=== PATIENT | male | born 1965 | race Caucasian/White ===

== ENCOUNTER 2018-09-21 06:08 | Emergency (ER) | payer OTHER ==
[~2018-09-21] VITALS: Ht 170.2 cm; Wt 76.8 kg
[2018-09-21 06:15] VITALS: Ht 170.2 cm; Wt 76.8 kg
[2018-09-21] MEDS ORDERED: ONDANSETRON 4 MG INJ IV STA ×3 (07:36→09:21)
[2018-09-21] MEDS ORDERED: morphine 4 MG/ML VIAL IV STA (07:36)
--- NOTE | 2018-09-21 08:01 | ERD ---
ER Documentation Chief Complaint Chief Complaint abdominal pain/vomiting since 1999 last night HPI This is a 53-year-old male with a history of hypertension, diabetes, end-stage renal disease who goes to dialysis Sunday, Sunday, Sunday who presents to the ER for evaluation of abdominal pain, cramping and vomiting since last night. The patient states that he normally has nausea and vomiting after dialysis however he is vomited multiple times today. He denies any blood in the vomit. He states that he does have some pain which she describes as a cramping pain located in the lower portion of the abdomen. The patient denies any chest pain or shortness of breath this time. ROS All systems reviewed and are negative except as per history of present illness. Medications Home Meds Active Scripts Hydrocodone/Acetaminophen (Raymond 5-325 Tablet) 1 Each Tablet, 1 TAB PO Q6H PRN for PAIN, #7 TAB Prov:HELEN KOWALSKI DO 09/21/18 Ondansetron (Ondansetron Odt) 4 Mg Tab.rapdis, 4 MG PO Q6H PRN for NAUSEA AND/OR VOMITING, #10 TAB Prov:HELEN KOWALSKI DO 09/21/18 Allergies Allergies: Coded Allergies: No Known Drug Allergies (Verified Allergy, Unknown, 09/21/18) PMhx/Soc History of Surgery: No Anesthesia Reaction: No Hx Neurological Disorder: No Hx Respiratory Disorders: No Hx Cardiac Disorders: Yes (HTN, HIGH CHOLESTEROL) Hx Psychiatric Problems: No Hx Miscellaneous Medical Probl: Yes (ESRD ON HD) Hx Alcohol Use: No Hx Substance Use: No Hx Tobacco Use: No Smoking Status: Never smoker Physical Exam Vitals Vital Signs Date Temp Pulse Resp B/P (MAP) Pulse Ox O2 O2 Flow FiO2 Time Delivery Rate 09/21/18 98.6 84 18 187/91 99 06:15 (123) Physical Exam INITIAL VITAL SIGNS: Reviewed by me GENERAL: The patient is well developed and appropriate for usual state of health in no apparent distress HEENT: Dry mucous membranes, pupils equal, round, and reactive to light. EOMI. There is no scleral icterus. NECK: C-spine is soft and supple, there is no meningismus. There is no cervical lymphadenopathy. LUNGS: Clear to auscultation bilaterally. There are no rales, wheezes or rhonchi. HEART: Regular rate and rhythm, no murmurs, clicks, rubs or gallops. ABDOMEN: Mild epigastric tenderness to palpation, negative Poole sign, negative McBurney point tenderness, otherwise soft, non-tender, non-distended. There are bowel sounds in all four quadrants. No rebound or guarding. EXTREMITIES: There is no peripheral cyanosis or edema. No focal swelling or erythema. NEUROLOGICAL: The patient moves all four extremities with 5/5 strength. Cranial nerves II - XII are intact. Normal gait. Alert and oriented SKIN: Dialysis catheter in right anterior chest wall, there is no apparent rash or petechiae. HEME/LYMPHATIC: There is no evidence of excessive bruising or lymphedema. PSYCHIATRIC: The patient does not appear anxious or depressed. Result Diagram: 09/21/1872909/21/1830 Results 24 hrs Laboratory Tests Test 09/21/18 07:30 White Blood Count 11.1 10^3/ul Red Blood Count 4.95 10^6/ul Hemoglobin 13.1 g/dl Hematocrit 40.1 % Mean Corpuscular Volume 81.0 fl Mean Corpuscular Hemoglobin 26.5 pg Mean Corpuscular Hemoglobin Concent 32.7 g/dl Red Cell Distribution Width 16.9 % Platelet Count 221 10^3/UL Mean Platelet Volume 8.8 fl Immature Granulocytes % 0.400 % Neutrophils % 86.3 % Lymphocytes % 5.0 % Monocytes % 7.6 % Eosinophils % 0.4 % Basophils % 0.3 % Nucleated Red Blood Cells % 0.0 /100WBC Immature Granulocytes # 0.040 10^3/ul Neutrophils # 9.6 10^3/ul Lymphocytes # 0.6 10^3/ul Monocytes # 0.8 10^3/ul Eosinophils # 0.0 10^3/ul Basophils # 0.0 10^3/ul Nucleated Red Blood Cells # 0.0 10^3/ul Sodium Level 138 mmol/L Potassium Level 4.0 mmol/L Chloride Level 97 mmol/L Carbon Dioxide Level 25 mmol/L Anion Gap 16 Blood Urea Nitrogen 28 mg/dl Creatinine 7.08 mg/dl Est Glomerular Filtrat Rate mL/min 8 mL/min Glucose Level 154 mg/dl Calcium Level 9.6 mg/dl Total Bilirubin 0.5 mg/dl Direct Bilirubin 0.00 mg/dl Indirect Bilirubin 0.5 mg/dl Aspartate Amino Transf (AST/SGOT) 16 IU/L Alanine Aminotransferase (ALT/SGPT) 16 IU/L Alkaline Phosphatase 128 IU/L Total Protein 9.2 g/dl Albumin 4.8 g/dl Globulin 4.40 g/dl Albumin/Globulin Ratio 1.09 Lipase 52 U/L Current Medications Medications Dose Sig/Mikey Start Time Status Last (Trade) Ordered Route PRN Stop Time Admin Dose Reason Admin Morphine 4 mg ONCE STAT 09/21/18 DC 09/21/18 Sulfate IV 07:36 07:40 (morphine) 09/21/18 07:37 Ondansetron 4 mg ONCE STAT 09/21/18 DC 09/21/18 HCl (Zofran IV 07:36 07:40 Inj) 09/21/18 07:37 Procedures/MDM This 53-year-old male presents to the emergency room for evaluation of nausea and vomiting. The patient has had vomiting since last night and on my examination the patient was afebrile, nontoxic-appearing and hemodynamically stable. The patient had no significant tenderness to palpation. Labwork was obtained which shows his chronic renal insufficiency and no leukocytosis and no significant electrolyte abnormality. The patient was given Zofran and morphine. On my reevaluation he is sleeping comfortably and in no acute distress. Repeat abdominal exam is soft, nontender and benign. The patient will be discharged home with a prescription for Raymond for breakthrough pain and Zofran ODT. The patient was advised he can return to the ER at any moment for reevaluation and with him and his family members were at bedside verbalized understanding and are okay with the plan of care. Differential diagnoses entertained was broad with potential high acuity. Patient has been evaluated for appendicitis, chol ecystitis, and other high risk medical and surgical causes of abdominal pain. Ultimately the patient's evaluation is nondiagnostic. Based on the patient's lack of risk factors, as well as the patient's clinical, laboratory, and imaging data, the patient appears to be low risk for these high risk causes of abdominal pain. Departure Diagnosis: Primary Impression: Abdominal pain Additional Impressions: Nausea and vomiting Chronic kidney disease Condition: HELEN Chang DO September 21, 2018 08:01
[2018-09-21] MEDS ORDERED: ONDA4TAB14 PO (08:27)
[2018-09-21] MEDS ORDERED: HYDR-4011 PO (08:27)
[2018-09-21 09:30] VITALS: BP 178/87; PULSE 78; RESP 17
== END 2018-09-21 09:39 | disposition home or self-care (01) ==
LOC: E/R 06:08
DX: R10.9 Unspecified abdominal pain (principal); R11.2 Nausea with vomiting, unspecified; I12.0 Hypertensive chronic kidney disease with stage 5 chronic kidney disease or end stage renal disease; N18.6 End stage renal disease; Z99.2 Dependence on renal dialysis
CPT/HCPCS: 36415; 80053; 83690; 85025; 96374; 96375; 96376; J2270; J2405; Z7502

== ENCOUNTER 2018-09-23 21:29 | Inpatient (IN) | payer OTHER ==
[~2018-09-23] VITALS: Ht 170.2 cm; Wt 77.3 kg
[~2018-09-23 21:29] MED LIST: HYDR-4011 PO; ONDA4TAB14 PO
[2018-09-23] MEDS ORDERED: ONDANSETRON 4 MG INJ IV STA (22:17)
[2018-09-23] MEDS ORDERED: morphine 4 MG/ML VIAL IV STA (22:17)
[2018-09-23] MEDS ORDERED: NACL 0.9% 3 ML SYG IV SCH (23:30)
[2018-09-23] MEDS ORDERED: metroNIDAZOLE 500 MG/NS (PMX) 100 ML IVPB ONE (23:30)
[2018-09-23] MEDS ORDERED: ACETAMINOPHEN 325 MG TAB PO PRN (23:30)
[2018-09-23] MEDS ORDERED: ACETAMINOPHEN 650 MG SUPP PR PRN (23:30)
[2018-09-23] MEDS ORDERED: PIPER-TAZO 3.375 GM IV (PMX) 100 ML IVPB ONE (23:30)
[2018-09-23] MEDS ORDERED: ONDANSETRON 4 MG INJ IV PRN (23:30)
[2018-09-24] VITALS (9 sets, daily range): BP systolic 152–197; BP diastolic 77–93; PULSE 71–86; RESP 18–20; Ht 170.2 cm; Wt 77.3 kg
[2018-09-24] MEDS ORDERED: hydrALAzine 20 MG INJ IV ONE (00:30)
[2018-09-24] MEDS: DEXTROSE 5%-0.45% NACL 1,000 ML IV SCH ×2 (01:24→23:22)
[2018-09-24] MEDS: CIPROFLOXACIN 400 MG in D5W 200 ML IVPB SCH (01:27)
[2018-09-24] MEDS: morphine 2 MG INJ IV PRN ×4 (03:18→22:20)
[2018-09-24] MEDS: PANTOPRAZOLE 40 MG INJ IV SCH (05:49)
[2018-09-24] MEDS: ONDANSETRON 4 MG INJ IV PRN ×3 (07:47→22:20)
[2018-09-24] MEDS: hydrALAzine 20 MG INJ IV PRN ×2 (08:43→14:59)
[2018-09-24] MEDS: metroNIDAZOLE 500 MG/NS (PMX) 100 ML IVPB SCH ×3 (08:49→20:39)
[2018-09-24] MEDS ORDERED: CIPROFLOXACIN 200 MG/D5W IVPB 100 ML IVPB SCH (09:00)
[2018-09-24] MEDS ORDERED: METOCLOPRAMIDE 10 MG INJ IV PRN (11:00)
--- NOTE | 2018-09-24 11:27 | CONS ---
Assessment/Plan Assessment/Plan Hospital Course (Demo Recall) 53 yo male with mild thickening of the descending and sigmoid colon seen on CT scan 1. Abdominal pain 2. Nausea and vomiting 3. Constipation per pt 4. Mild thickening of the descending and sigmoid colon which may represent acute colitis. 5. Anemia,acute 6. Renal disease on HD 7. Htn 8. DM -on glipizide Impression of CT abd 09/24: 1. Mild thickening of the descending and sigmoid colon which may represent acute colitis. 2. Moderate cardiomegaly with trace pericardial effusion. 3. A few nonspecific bilateral lower lobe ground-glass opacities. These may represent atypical infectious/inflammatory etiologies. Follow-up imaging is recommended as clinically warranted. 4. Moderate cardiomegaly with trace pericardial effusion Plan: IVF to hydrate Stool culture, o/p Continue flagyl and cipro Give Zofran ATC Optimize blood sugars Clear liquid diet okay Do not recommend reglan with renal disease Pt examined and plan of care discussed with Dr. Null Consultation Date/Type/Reason Admit Date/Time September 23, 2018 at 23:18 Date/Time of Note DATE: 09/24/18 TIME: 10:57 Hx of Present Illness 52 yo male with DM2 htn and renal disease presents with nausea, vomiting, and abdominal pain x 2 weeks. PT came to ER 3 days ago with same symptoms, was given medications and sent home. S/S not alleviated and he returned. He has not had a bm in 3 days, had small amount last night. States they are soft and brown in color. He is only able to tolerate small amounts of food. Has lost 5 lbs in last two weeks but states he has not been able to eat. Denies fevers or chills. No evidence of GI bleeding per pt. Pt states his blood sugars have been wnl. On glipizide at home. CT scan shows: Impression of CT abd 09/24: 1. Mild thickening of the descending and sigmoid colon which may represent acute colitis. 2. Moderate cardiomegaly with trace pericardial effusion. 3. A few nonspecific bilateral lower lobe ground-glass opacities. These may represent atypical infectious/inflammatory etiologies. Follow-up imaging is recommended as clinically warranted. 4. Moderate cardiomegaly with trace pericardial effusion. Pt denies travel outside of country, denies being around anyone who is sick. states this happens when he has HD. Denies marijuana or alcohol use. WBC wnl. 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 Past Medical History Home Meds Active Scripts Hydrocodone/Acetaminophen (Sebastian 5-325 Tablet) 1 Each Tablet, 1 TAB PO Q6H PRN for PAIN, #7 TAB Prov:ZEENAT KOWALSKIPEDRO LUIS DO 09/21/18 Ondansetron (Ondansetron Odt) 4 Mg Tab.rapdis, 4 MG PO Q6H PRN for NAUSEA AND/OR VOMITING, #10 TAB Prov:MEGHANAZEENATPEDRO LUIS DO 09/21/18 Medications Current Medications Dextrose/Sodium Chloride 1,000 ml @ 40 mls/hr Q24H IV Last administered on 09/24/18 01:24; Admin Dose 40 MLS/HR; Start 09/23/18 at 23:22 IV Flush (NS 3 ml) 3 ml PER PROTOCOL IV ; Start 09/23/18 at 23:30 Acetaminophen (Tylenol Tab) 650 mg Q6H PRN PO .PAIN 1-3 OR TEMP; Start 09/23/18 at 23:30 Acetaminophen (Tylenol Supp) 650 mg Q6H PRN PA .PAIN 1-3 OR TEMP; Start 09/23 at 23:30 Morphine Sulfate (morphine) 2 mg Q4H PRN IV .SEVERE PAIN 7-10 Last administered on 09/24/18 07:43; Admin Dose 2 MG; Start 09/23/18 at 23:30 Pantoprazole (Protonix Iv) 40 mg DAILY@06 IV Last administered on 09/24/18 05:49; Admin Dose 40 MG; Start 09/24/18 at 06:00 Metronidazole 100 ml @ 100 mls/hr TID IVPB Last administered on 09/24/18 08:49; Admin Dose 100 MLS/HR; Start 09/24/18 at 09:00 Ciprofloxacin/ Dextrose 200 ml @ 200 mls/hr Q24H IVPB Last administered on 09/24/18 01:27; Admin Dose 200 MLS/HR; Start 09/23/18 at 23:45 Ondansetron HCl (Zofran Inj) 4 mg Q4H PRN IV NAUSEA/VOMITING Last administered on 09/24/18 07:47; Admin Dose 4 MG; Start 09/24/18 at 06:00 Hydralazine HCl (Apresoline) 10 mg Q6H PRN IV ELEVATED SYSTOLIC BP Last administered on 09/24/18at 08:43; Admin Dose 10 MG; Start 09/24/18 at 08:30 Allergies: Coded Allergies: No Known Drug Allergies (Verified Allergy, Unknown, 09/21/18) Social History Smoking Status: Never smoker Exam/Review of Systems Exam Vitals Vital Signs Date Temp Pulse Resp B/P (MAP) Pulse Ox O2 O2 Flow FiO2 Time Delivery Rate 09/24/18 77 165/83 09:57 (110) 09/24/18 93 Room Air 08:13 09/24/18 98.4 20 07:33 09/24/18 2.0 00:42 Intake and Output 09/23/18 09/23/18 09/24/18 1515:00 23:00 07:00 IntakeIntake Total 520 ml BalanceBalance 520 ml Constitutional: alert, oriented Psych: no complaints Head: normocephalic Eyes: nl sclera, PERRL Respiratory: clear to auscultation Cardiovascular: regular rate and rhythm Gastrointestinal: soft, bowel sounds, tender (TTP in all quadrants) Musculoskeletal: nl gait and stance Neurological: nl mental status, nl speech Results Result Diagram: 09/24/18 0506 09/24/18 0506 Results 24hrs Laboratory Tests Test 09/23/18 22:27 09/24/18 05:06 White Blood Count 7.1 # 8.2 Red Blood Count 4.26 L 3.86 L Hemoglobin 11.2 L 10.3 L Hematocrit 34.1 L 31.5 L Mean Corpuscular Volume 80.0 L 81.6 L Mean Corpuscular Hemoglobin 26.3 L 26.7 L Mean Corpuscular Hemoglobin Concent 32.8 32.7 Red Cell Distribution Width 16.1 H 16.1 H Platelet Count 185 182 Mean Platelet Volume 8.7 9.0 Immature Granulocytes % 0.400 0.500 H Neutrophils % 75.0 82.4 H Lymphocytes % 10.7 L 7.3 L Monocytes % 11.6 H 7.8 Eosinophils % 2.0 1.8 Basophils % 0.3 0.2 Nucleated Red Blood Cells % 0.0 0.0 Immature Granulocytes # 0.030 0.040 H Neutrophils # 5.3 6.8 Lymphocytes # 0.8 0.6 L Monocytes # 0.8 0.6 Eosinophils # 0.1 0.2 Basophils # 0.0 0.0 Nucleated Red Blood Cells # 0.0 0.0 Sodium Level 133 L 133 L Potassium Level 3.7 3.5 Chloride Level 94 L 95 L Carbon Dioxide Level 27 25 Anion Gap 12 13 Blood Urea Nitrogen 23 H 26 H Creatinine 6.10 H 7.14 H Est Glomerular Filtrat Rate mL/min 10 L 8 L Glucose Level 127 112 Lactic Acid Level 0.7 Calcium Level 8.4 8.0 L Total Bilirubin 0.3 0.3 Direct Bilirubin 0.00 0.00 Indirect Bilirubin 0.3 0.3 Aspartate Amino Transf (AST/SGOT) 11 L 11 L Alanine Aminotransferase (ALT/SGPT) 16 12 L Alkaline Phosphatase 92 76 Troponin I < 0.012 Total Protein 7.8 7.2 Albumin 4.0 3.7 Globulin 3.80 H 3.50 H Albumin/Globulin Ratio 1.05 1.05 Lipase 18 L Medications Medication Current Medications Dextrose/Sodium Chloride 1,000 ml @ 40 mls/hr Q24H IV Last administered on 09/24/18at 01:24; Admin Dose 40 MLS/HR; Start 09/23/18 at 23:22 IV Flush (NS 3 ml) 3 ml PER PROTOCOL IV ; Start 09/23/18 at 23:30 Acetaminophen (Tylenol Tab) 650 mg Q6H PRN PO .PAIN 1-3 OR TEMP; Start 09/23/18 at 23:30 Acetaminophen (Tylenol Supp) 650 mg Q6H PRN PA .PAIN 1-3 OR TEMP; Start 09/23/18 at 23:30 Morphine Sulfate (morphine) 2 mg Q4H PRN IV .SEVERE PAIN 7-10 Last administered on 09/24/18at 07:43; Admin Dose 2 MG; Start 09/23/18 at 23:30 Pantoprazole (Protonix Iv) 40 mg DAILY@06 IV Last administered on 09/24/18at 05:49; Admin Dose 40 MG; Start 09/24/18 at 06:00 Metronidazole 100 ml @ 100 mls/hr TID IVPB Last administered on 09/24/18at 08:49; Admin Dose 100 MLS/HR; Start 09/24/18 at 09:00 Ciprofloxacin/ Dextrose 200 ml @ 200 mls/hr Q24H IVPB Last administered on 09/24/18at 01:27; Admin Dose 200 MLS/HR; Start 09/23/18 at 23:45 Ondansetron HCl (Zofran Inj) 4 mg Q4H PRN IV NAUSEA/VOMITING Last administered on 09/24/18at 07:47; Admin Dose 4 MG; Start 09/24/18 at 06:00 Hydralazine HCl (Apresoline) 10 mg Q6H PRN IV ELEVATED SYSTOLIC BP Last administered on 09/24/18at 08:43; Admin Dose 10 MG; Start 09/24/18 at 08:30 SHELLEY RAMIREZ September 24, 2018 11:08 LEANNA NULL MD September 24, 2018 11:29
--- NOTE | 2018-09-24 13:24 | QN ---
Documentation Comment pt seen and examined KOBE YANES MD September 24, 2018 13:24
[2018-09-24] MEDS: AMLODIPINE 5 MG TAB PO SCH ×2 (13:55→20:40)
[2018-09-24] MEDS ORDERED: GLUCAGON 1 MG INJ IM PRN (14:00)
[2018-09-24] MEDS ORDERED: GLUCOSE GEL 15 GRAM TUBE PO PRN ×2 (14:00)
[2018-09-24] MEDS ORDERED: GLUCOSE GEL 15 GRAM TUBE BUCCAL PRN (14:00)
[2018-09-24] MEDS ORDERED: DEXTROSE 50% 50 ML SYRINGE IV PRN ×2 (14:00)
[2018-09-24] MEDS ORDERED: CALC667C PO (14:43)
[2018-09-24] MEDS ORDERED: BENA20TA4 PO (14:43)
[2018-09-24] MEDS ORDERED: AMLO5TAB4 PO (14:43)
--- NOTE | 2018-09-24 15:18 | HP ---
DATE OF ADMISSION: 09/23/2018 REASON FOR ADMISSION: Abdominal pain, nausea, vomiting. HISTORY OF PRESENTING ILLNESS: This is a 53-year-old male with a past medical history of hypertensio n, diabetes, end-stage renal disease on hemodialysis Sunday, Sunday, Sunday, started in 03/2018, p resented to the emergency department complaining of lower abdominal pain and associated with nausea, vomiting for the last 2 weeks. According to the patient, he was doing fine until 2 weeks ago and sta rted having nausea and vomiting especially after dialysis. The patient came to the ER 3 days ago wit h the same symptoms, was given medication and sent home, but the symptoms did not get any better, so came to the emergency department. According to the patient, he has been having lower diffuse abdomin al pain intermittently for the last 2 weeks, vomited, had been continuous for the last 2 days. He archuleta s not been able to eat. Denied any hematemesis, any melena, any bright blood per rectum. Denied any diarrhea. Denied any fevers and chills. On arrival to ED, vital signs showed temperature of 98.3, blood pressure of 186/93, pulse 75, respirations 20, saturating 98%. White count of 8.2, hemoglobin 10.3, platelet count 182, sodium 133, potassium 3.5, chloride 95, bicarbonate 25, BUN of 26, creatini ne 7.14. The patient had a chest x-ray that showed no evidence of acute cardiopulmonary disease. Th e patient had a CT of the abdomen and pelvis that showed mild thickening of descending and sigmoid co lons showing acute colitis, moderate cardiomegaly with trace pericardial effusion, few nonspecific bi lateral lower lobe glass opacities, moderate cardiomegaly and trace pericardial effusion. The patien t was started on IV fluids, Zofran, Flagyl and Zosyn and was admitted for further management. PAST MEDICAL HISTORY: 1. Diabetes. 2. Hypertension. 3. Hyperlipidemia. ALLERGIES: NONE. PAST SURGICAL HISTORY: The patient had a right foot great toe amputation. The patient had a right P ermCath placement. MEDICATIONS TAKING AT HOME: 1. Glipizide. 2. Two blood pressure medicines. 3. Calcium. SOCIAL HISTORY: Denies any history of smoking, alcohol or any drug use. Lives with mother. FAMILY HISTORY: Significant for kidney disease in the father who . REVIEW OF SYSTEMS: The patient complained of diffuse abdominal pain associated with episodes of naus ea, vomiting. No diarrhea. Denied any headache, any blurry vision. Denied any chest pain. Sometim es have shortness of breath. Denied any hematemesis, any melena, any bright red blood per rectum. D enied any focal neurological deficits. PHYSICAL EXAMINATION: VITAL SIGNS: Currently, blood pressure 185/82, afebrile, heart rate 71, respirations 20, saturating 99%. GENERAL: The patient is awake, alert, oriented, does not appear to in any acute distress. HEENT: No scleral icterus. No pallor. HEART: Regular rate and rhythm. LUNGS: Clear to auscultation bilaterally. ABDOMEN: Some diffuse slight tenderness present all over. Positive bowel sounds. No peritoneal sig ns. EXTREMITIES: No clubbing, cyanosis or edema. Status post amputation of the right great toe. LABORATORY DATA: BUN of 26, creatinine 7.14. Lipase was LFTs within normal limit. White coun t of 8.2, hemoglobin 10.3, platelet count 182. ASSESSMENT AND PLAN: This is a 53-year-old male who presented with: 1. Abdominal pain, nausea, vomiting, could be secondary to gastritis, gastroesophagitis/gastroparesi s; however CT of the abdomen and pelvis shows colitis. 2. Colitis evident on the CAT scan; however, the patient does not have diarrhea. 3. End-stage renal disease, on hemodialysis. 4. Hyperlipidemia. 5. Diabetes. 6. Hypertension, uncontrolled. 7. Status post amputation of the right great toe. PLAN: At this period of time, the patient is admitted to med/surg. The patient is started on clear liquid diet. We will start the patient on pain control, IV antibiotics. The patient on Zofran, PPI. GI consultation has been requested. Rest of the treatment will depend on the patient's hospitaliza tion course. Dictated By: KOBE DE GUZMAN/KAE Conf#: [id number] DID#: [id number] CC: EDGAR PEÑA MD;*EndCC*
[2018-09-24] MEDS: METOCLOPRAMIDE 10 MG INJ IV PRN (16:55)
[2018-09-24] MEDS: INSULIN ASPART [NOVOLOG] 3 ML PEN SC SCH ×2 (17:58→21:00)
[2018-09-25] VITALS (19 sets, daily range): BP systolic 152–187; BP diastolic 77–95; PULSE 70–79; RESP 16–18
[2018-09-25] MEDS: CIPROFLOXACIN 400 MG in D5W 200 ML IVPB SCH ×2 (01:12→23:38)
[2018-09-25] MEDS: ACCU-CHEK XX SCH (02:00)
[2018-09-25] MEDS: PANTOPRAZOLE 40 MG INJ IV SCH (05:23)
[2018-09-25] MEDS: ONDANSETRON 4 MG INJ IV PRN ×2 (06:22→12:15)
[2018-09-25] MEDS: DEXTROSE 5%-0.45% NACL 1,000 ML IV SCH (06:26)
[2018-09-25] MEDS: INSULIN ASPART [NOVOLOG] 3 ML PEN SC SCH ×4 (08:00→20:30)
[2018-09-25] MEDS: AMLODIPINE 5 MG TAB PO SCH ×2 (08:16→20:27)
[2018-09-25] MEDS: metroNIDAZOLE 500 MG/NS (PMX) 100 ML IVPB SCH ×3 (08:16→20:26)
--- NOTE | 2018-09-25 11:45 | PN ---
Date/Time of Note Date/Time of Note DATE: 09/25/18 TIME: 11:45 Assessment/Plan VTE Prophylaxis Risk score (from Ns)>0 risk: 3 SCD applied (from Ns): Yes Pharmacological prophylaxis: NA/contraindicated Pharm contraindication: low risk/ambulating Lines/Catheters IV C[facility]ter Type (from [facility]): Peripheral IV Assessment/Plan Hospital Course 53-year-old male who presented with: 1. Abdominal pain, nausea, vomiting, could be secondary to gastritis, gastroesophagitis/gastroparesis; however CT of the abdomen and pelvis shows colitis. Diarrhoea resolved, vommiting still persistent 2. Colitis evident on the CAT scan; however, the patient does not have diarrhea. 3. End-stage renal disease, on hemodialysis. 4. Hyperlipidemia. 5. Diabetes. 6. Hypertension, uncontrolled. 7. Status post amputation of the right great toe. Plan - CLD - IV Zofran/reglan - GI consult ? EGD - hd today - cw amlodipine, restart lisnopril - cw cipro/flagyl Result Diagram: 09/25/18 0514 09/25/18 0514 Results 24hrs Laboratory Tests Test 09/24/18 17:58 09/24/18 20:36 09/25/18 05:14 09/25/18 08:15 Bedside Glucose 112 155 121 White Blood Count 7.8 Red Blood Count 3.77 L Hemoglobin 10.0 L Hematocrit 31.0 L Mean Corpuscular 82.2 Volume Mean Corpuscular 26.5 L Hemoglobin Mean Corpuscular 32.3 Hemoglobin Concent Red Cell 16.4 H Distribution Width Platelet Count 190 Mean Platelet Volume 9.0 Immature 0.400 Granulocytes % Neutrophils % 63.3 Lymphocytes % 17.0 Monocytes % 15.8 H Eosinophils % 2.9 Basophils % 0.6 Nucleated Red Blood 0.0 Cells % Immature 0.030 Granulocytes # Neutrophils # 5.0 Lymphocytes # 1.3 Monocytes # 1.2 H Eosinophils # 0.2 Basophils # 0.1 Nucleated Red Blood 0.0 Cells # Sodium Level 134 L Potassium Level 3.7 Chloride Level 96 L Carbon Dioxide Level 23 Anion Gap 15 H Blood Urea Nitrogen 32 H Creatinine 9.41 #H Est Glomerular 6 L Filtrat Rate mL/min Glucose Level 106 Calcium Level 7.9 L Phosphorus Level 6.9 H Magnesium Level 2.2 Total Bilirubin 0.2 Direct Bilirubin 0.00 Indirect Bilirubin 0.2 Aspartate Amino < 8 L Transf (AST/SGOT) Alanine 17 Aminotransferase (AL T/SGPT) Alkaline Phosphatase 62 Total Protein 6.9 Albumin 3.6 Globulin 3.30 H Albumin/Globulin 1.09 Ratio Subjective 24 Hr Interval Summary Free Text/Dictation Diarrhea is resolved Some abdominal pain Had episode of vomiting this a.m. Exam/Review of Systems Exam Vitals Vital Signs Date Temp Pulse Resp B/P (MAP) Pulse Ox O2 O2 Flow FiO2 Time Delivery Rate 09/25/18 98.3 77 18 168/92 95 07:43 (117) 09/24/18 Room Air 08:13 09/24/18 2.0 00:42 Intake and Output 09/24/18 09/24/18 09/25/18 1515:00 23:00 07:00 IntakeIntake Total 320 ml 820 ml 560 ml OutputOutput Total 175 ml 75 ml BalanceBalance 145 ml 745 ml 560 ml Exam GENERAL: The patient is awake, alert, oriented, does not appear to in any acute distress. HEENT: No scleral icterus. No pallor. HEART: Regular rate and rhythm. LUNGS: Clear to auscultation bilaterally. ABDOMEN: Some diffuse slight tenderness present all over. Positive bowel sounds. No peritoneal signs. EXTREMITIES: No clubbing, cyanosis or edema. Status post amputation of the right great toe. Results Results 24hrs Laboratory Tests Test 09/24/18 17:58 09/24/18 20:36 09/25/18 05:14 09/25/18 08:15 Bedside Glucose 112 155 121 White Blood Count 7.8 Red Blood Count 3.77 L Hemoglobin 10.0 L Hematocrit 31.0 L Mean Corpuscular 82.2 Volume Mean Corpuscular 26.5 L Hemoglobin Mean Corpuscular 32.3 Hemoglobin Concent Red Cell 16.4 H Distribution Width Platelet Count 190 Mean Platelet Volume 9.0 Immature 0.400 Granulocytes % Neutrophils % 63.3 Lymphocytes % 17.0 Monocytes % 15.8 H Eosinophils % 2.9 Basophils % 0.6 Nucleated Red Blood 0.0 Cells % Immature 0.030 Granulocytes # Neutrophils # 5.0 Lymphocytes # 1.3 Monocytes # 1.2 H Eosinophils # 0.2 Basophils # 0.1 Nucleated Red Blood 0.0 Cells # Sodium Level 134 L Potassium Level 3.7 Chloride Level 96 L Carbon Dioxide Level 23 Anion Gap 15 H Blood Urea Nitrogen 32 H Creatinine 9.41 #H Est Glomerular 6 L Filtrat Rate mL/min Glucose Level 106 Calcium Level 7.9 L Phosphorus Level 6.9 H Magnesium Level 2.2 Total Bilirubin 0.2 Direct Bilirubin 0.00 Indirect Bilirubin 0.2 Aspartate Amino < 8 L Transf (AST/SGOT) Alanine 17 Aminotransferase (AL T/SGPT) Alkaline Phosphatase 62 Total Protein 6.9 Albumin 3.6 Globulin 3.30 H Albumin/Globulin 1.09 Ratio Medications Medication Current Medications Dextrose/Sodium Chloride 1,000 ml @ 40 mls/hr Q24H IV Last administered on 09/25/18at 06:26; Admin Dose 40 MLS/HR; Start 09/23/18 at 23:22 IV Flush (NS 3 ml) 3 ml PER PROTOCOL IV ; Start 09/23/18 at 23:30 Acetaminophen (Tylenol Tab) 650 mg Q6H PRN PO .PAIN 1-3 OR TEMP; Start 09/23/18 at 23:30 Acetaminophen (Tylenol Supp) 650 mg Q6H PRN [place] .PAIN 1-3 OR TEMP; Start 09/23/18 at 23:30 Morphine Sulfate (morphine) 2 mg Q4H PRN IV .SEVERE PAIN 7-10 Last administered on 09/24/18at 22:20; Admin Dose 2 MG; Start 09/23/18 at 23:30 Pantoprazole (Protonix Iv) 40 mg DAILY@06 IV Last administered on 09/25/18at 05:23; Admin Dose 40 MG; Start 09/24/18 at 06:00 Metronidazole 100 ml @ 100 mls/hr TID IVPB Last administered on 09/25/18at 08:16; Admin Dose 100 MLS/HR; Start 09/24/18 at 09:00 Ciprofloxacin/ Dextrose 200 ml @ 200 mls/hr Q24H IVPB Last administered on 09/25/18at 01:12; Admin Dose 200 MLS/HR; Start 09/23/18 at 23:45 Ondansetron HCl (Zofran Inj) 4 mg Q4H PRN IV NAUSEA/VOMITING Last administered on 09/25/18at 06:22; Admin Dose 4 MG; Start 09/24/18 at 06:00 Hydralazine HCl (Apresoline) 10 mg Q6H PRN IV ELEVATED SYSTOLIC BP Last administered on 09/24/18at 14:59; Admin Dose 10 MG; Start 09/24/18 at 08:30 Metoclopramide HCl (Reglan) 5 mg Q8 PRN IV NAUSEA AND/OR VOMITING Last administered on 09/24/18at 16:55; Admin Dose 5 MG; Start 09/24/18 at 13:30 Amlodipine Besylate (Norvasc) 5 mg BID PO Last administered on 09/25/18at 08:16; Admin Dose 5 MG; Start 09/24/18 at 13:30 Diagnostic Test (Pha) (Accu-Chek) 1 ea 02 XX ; Start 09/25/18 at 02:00 Insulin Aspart (Novolog Insulin Pen) NOVOLOG *MILD* ALGORITHM WITH MEALS BEDTIME SC ; Start 09/24/18 at 18:00 Heparin Sodium (Porcine) (Heparin (1000 Units/ml)) 4,000 unit AFTER DIALYSIS CATHETER ; Start 09/24/18 at 14:00 Miscellaneous Information 1 ea NOTE XX ; Start 09/24/18 at 14:00 Glucose (Glutose) 15 gm Q15M PRN PO DECREASED GLUCOSE; Start 09/24/18 at 14:00 Glucose (Glutose) 22.5 gm Q15M PRN PO DECREASED GLUCOSE; Start 09/24/18 at 14:00 Dextrose (D50w Syringe) 25 ml Q15M PRN IV DECREASED GLUCOSE; Start 09/24/18 at 14:00 Dextrose (D50w Syringe) 50 ml Q15M PRN IV DECREASED GLUCOSE; Start 09/24/18 at 14:00 Glucagon (Glucagen) 1 mg Q15M PRN IM DECREASED GLUCOSE; Start 09/24/18 at 14:00 Glucose (Glutose) 15 gm Q15M PRN BUCCAL DECREASED GLUCOSE; Start 09/24/18 at 14:00 KOBE YANES MD September 25, 2018 11:45
[2018-09-25] MEDS: METOCLOPRAMIDE 10 MG INJ IV PRN (15:00)
--- NOTE | 2018-09-25 16:43 | CONS ---
Assessment/Plan Assessment/Plan Assessment/Plan (Daily) 1. Abdominal pain 2. Nausea and vomiting 3. Constipation per pt 4. Mild thickening of the descending and sigmoid colon which may represent acute colitis. 5. Anemia,acute 6. Renal disease on HD 7. Htn 8. DM Plan Continue present care We will proceed with EGD to find out the cause of his intractable nausea vomiting Consultation Date/Type/Reason Admit Date/Time September 23, 2018 at 23:18 Initial Consult Date Date/Time of Note DATE: 09/25/18 TIME: 16:42 24 HR Interval Summary Free Text/Dictation Continues to have intractable nausea vomiting. Patient is not responding to anti-emetic treatment Exam/Review of Systems Exam Vitals Vital Signs Date Temp Pulse Resp B/P (MAP) Pulse Ox O2 O2 Flow FiO2 Time Delivery Rate 09/25/18 97.5 72 18 157/77 94 13:04 (103) 09/24/18 Room Air 08:13 09/24/18 2.0 00:42 Intake and Output 09/24/18 09/24/18 09/25/18 1515:00 23:00 07:00 IntakeIntake Total 320 ml 820 ml 560 ml OutputOutput Total 175 ml 75 ml BalanceBalance 145 ml 745 ml 560 ml Constitutional: alert, oriented, well developed Psych: no complaints, nl mood/affect Head: normocephalic, atraumatic Eyes: nl conjunctiva, EOMI, nl lids, nl sclera, PERRL ENMT: nl external ears & nose, nl lips & teeth, nl nasal mucosa & septum Neck: supple, non-tender Respiratory: clear to auscultation, normal air movement Cardiovascular: regular rate and rhythm, nl pulses Gastrointestinal: soft, nl liver, spleen, non-tender Musculoskeletal: nl extremities to inspection, nl gait and stance Extremities: normal pulses Neurological: BATCH ATTENDANT II-XII intact, nl mental status, nl speech, nl strength Skin: nl turgor; No rash or lesions Lymph: nl lymph nodes Results Result Diagram: 09/25/18 0514 09/25/18 0514 Results 24hrs Laboratory Tests Test 09/24/18 17:58 09/24/18 20:36 09/25/18 05:14 09/25/18 08:15 Bedside Glucose 112 155 121 White Blood Count 7.8 Red Blood Count 3.77 L Hemoglobin 10.0 L Hematocrit 31.0 L Mean Corpuscular 82.2 Volume Mean Corpuscular 26.5 L Hemoglobin Mean Corpuscular 32.3 Hemoglobin Concent Red Cell 16.4 H Distribution Width Platelet Count 190 Mean Platelet Volume 9.0 Immature 0.400 Granulocytes % Neutrophils % 63.3 Lymphocytes % 17.0 Monocytes % 15.8 H Eosinophils % 2.9 Basophils % 0.6 Nucleated Red Blood 0.0 Cells % Immature 0.030 Granulocytes # Neutrophils # 5.0 Lymphocytes # 1.3 Monocytes # 1.2 H Eosinophils # 0.2 Basophils # 0.1 Nucleated Red Blood 0.0 Cells # Sodium Level 134 L Potassium Level 3.7 Chloride Level 96 L Carbon Dioxide Level 23 Anion Gap 15 H Blood Urea Nitrogen 32 H Creatinine 9.41 #H Est Glomerular 6 L Filtrat Rate mL/min Glucose Level 106 Calcium Level 7.9 L Phosphorus Level 6.9 H Magnesium Level 2.2 Total Bilirubin 0.2 Direct Bilirubin 0.00 Indirect Bilirubin 0.2 Aspartate Amino < 8 L Transf (AST/SGOT) Alanine 17 Aminotransferase (AL T/SGPT) Alkaline Phosphatase 62 Total Protein 6.9 Albumin 3.6 Globulin 3.30 H Albumin/Globulin 1.09 Ratio Test 09/25/18 13:07 Bedside Glucose 134 Medications Medication Current Medications Dextrose/Sodium Chloride 1,000 ml @ 40 mls/hr Q24H IV Last administered on 09/25/18at 06:26; Admin Dose 40 MLS/HR; Start 09/23/18 at 23:22 IV Flush (NS 3 ml) 3 ml PER PROTOCOL IV ; Start 09/23/18 at 23:30 Acetaminophen (Tylenol Tab) 650 mg Q6H PRN PO .PAIN 1-3 OR TEMP; Start 09/23/18 at 23:30 Acetaminophen (Tylenol Supp) 650 mg Q6H PRN [place] .PAIN 1-3 OR TEMP; Start 09/23/18 at 23:30 Morphine Sulfate (morphine) 2 mg Q4H PRN IV .SEVERE PAIN 7-10 Last administered on 09/24/18at 22:20; Admin Dose 2 MG; Start 09/23/18 at 23:30 Pantoprazole (Protonix Iv) 40 mg DAILY@06 IV Last administered on 09/25/18at 05:23; Admin Dose 40 MG; Start 09/24/18 at 06:00 Metronidazole 100 ml @ 100 mls/hr TID IVPB Last administered on 09/25/18at 13:08; Admin Dose 100 MLS/HR; Start 09/24/18 at 09:00 Ciprofloxacin/ Dextrose 200 ml @ 200 mls/hr Q24H IVPB Last administered on 09/25/18at 01:12; Admin Dose 200 MLS/HR; Start 09/23/18 at 23:45 Ondansetron HCl (Zofran Inj) 4 mg Q4H PRN IV NAUSEA/VOMITING Last administered on 09/25/18at 12:15; Admin Dose 4 MG; Start 09/24/18 at 06:00 Hydralazine HCl (Apresoline) 10 mg Q6H PRN IV ELEVATED SYSTOLIC BP Last a dministered on 09/24/18at 14:59; Admin Dose 10 MG; Start 09/24/18 at 08:30 Metoclopramide HCl (Reglan) 5 mg Q8 PRN IV NAUSEA AND/OR VOMITING Last administered on 09/25/18at 15:00; Admin Dose 5 MG; Start 09/24/18 at 13:30 Amlodipine Besylate (Norvasc) 5 mg BID PO Last administered on 09/25/18at 08:16; Admin Dose 5 MG; Start 09/24/18 at 13:30 Diagnostic Test (Pha) (Accu-Chek) 1 ea 02 XX ; Start 09/25/18 at 02:00 Insulin Aspart (Novolog Insulin Pen) NOVOLOG *MILD* ALGORITHM WITH MEALS BEDTIME SC ; Start 09/24/18 at 18:00 Heparin Sodium (Porcine) (Heparin (1000 Units/ml)) 4,000 unit AFTER DIALYSIS CATHETER ; Start 09/24/18 at 14:00 Miscellaneous Information 1 ea NOTE XX ; Start 09/24/18 at 14:00 Glucose (Glutose) 15 gm Q15M PRN PO DECREASED GLUCOSE; Start 09/24/18 at 14:00 Glucose (Glutose) 22.5 gm Q15M PRN PO DECREASED GLUCOSE; Start 09/24/18 at 14:00 Dextrose (D50w Syringe) 25 ml Q15M PRN IV DECREASED GLUCOSE; Start 09/24/18 at 14:00 Dextrose (D50w Syringe) 50 ml Q15M PRN IV DECREASED GLUCOSE; Start 09/24/18 at 14:00 Glucagon (Glucagen) 1 mg Q15M PRN IM DECREASED GLUCOSE; Start 09/24/18 at 14:00 Glucose (Glutose) 15 gm Q15M PRN BUCCAL DECREASED GLUCOSE; Start 09/24/18 at 14:00 Benazepril HCl (Lotensin) 20 mg DAILY PO ; Start 09/26/18 at 09:00 LEANNA NULL MD September 25, 2018 16:43
[2018-09-25] MEDS: HEPARIN 1000 UNITS/ML 10 ML INJ CATHETER SCH (20:02)
[2018-09-26] VITALS (14 sets, daily range): BP systolic 129–182; BP diastolic 63–89; PULSE 74–82; RESP 13–23
[2018-09-26] MEDS: ACCU-CHEK XX SCH (01:27)
[2018-09-26] MEDS: hydrALAzine 20 MG INJ IV PRN (01:32)
[2018-09-26] MEDS: ONDANSETRON 4 MG INJ IV PRN ×2 (04:46→21:04)
[2018-09-26] MEDS: PANTOPRAZOLE 40 MG INJ IV SCH (06:14)
[2018-09-26] MEDS: INSULIN ASPART [NOVOLOG] 3 ML PEN SC SCH ×4 (08:00→21:00)
[2018-09-26] MEDS: METOCLOPRAMIDE 10 MG INJ IV PRN ×2 (08:24→19:46)
[2018-09-26] MEDS: metroNIDAZOLE 500 MG/NS (PMX) 100 ML IVPB SCH ×2 (08:25→12:25)
[2018-09-26] MEDS: AMLODIPINE 5 MG TAB PO SCH ×2 (08:30→21:04)
[2018-09-26] MEDS ORDERED: BENAZEPRIL 20 MG TAB PO SCH (09:00)
--- NOTE | 2018-09-26 09:37 | PN ---
Date/Time of Note Date/Time of Note DATE: 09/26/18 TIME: 09:36 Assessment/Plan VTE Prophylaxis Risk score (from Ns)>0 risk: 5 SCD applied (from Ns): Yes Pharmacological prophylaxis: NA/contraindicated Pharm contraindication: other Lines/Catheters IV Catheter Type (from [facility]): Peripheral IV Assessment/Plan Hospital Course 1. Abdominal pain, nausea, vomiting, could be secondary to gastritis, gastroesophagitis/gastroparesis; however CT of the abdomen and pelvis shows colitis. Diarrhoea resolved, vommiting still persistent 2. Colitis evident on the CAT scan; however, the patient does not have diarrhea. 3. End-stage renal disease, on hemodialysis. 4. Hyperlipidemia. 5. Diabetes. 6. Hypertension, uncontrolled. 7. Status post amputation of the right great toe. 8. Anemia chronic disease 9. Hyponatremia Assessment/Plan - IV Zofran/reglan - GI consult will proceed EGD today -cw hd -SCD while in bed, anemia - cw amlodipine, lisinopril, increase Benazepril, add Hydralazine TID - cw cipro/flagyl Result Diagram: 09/25/18 0514 09/25/18 0514 Results 24hrs Laboratory Tests Test 09/25/18 13:07 09/25/18 17:59 09/25/18 20:29 09/26/18 07:58 Bedside Glucose 134 114 101 126 Subjective 24 Hr Interval Summary Free Text/Dictation headache, Gastrointestinal: pain, nausea, vomiting Skin: no complaints Exam/Review of Systems Exam Vitals Vital Signs Date Temp Pulse Resp B/P (MAP) Pulse Ox O2 O2 Flow FiO2 Time Delivery Rate 09/26/18 98.0 82 19 182/86 97 08:30 (118) 09/25/18 Room Air 20:00 09/24/18 2.0 00:42 Intake and Output 09/25/18 09/25/18 09/26/18 1515:00 23:00 07:00 IntakeIntake Total 1280 ml 460 ml 520 ml OutputOutput Total 1900 ml BalanceBalance 1280 ml -1440 ml 520 ml Exam right chest Permcath Constitutional: alert, oriented Head: normocephalic Neck: supple Respiratory: diminished breath sounds Cardiovascular: regular rate and rhythm Gastrointestinal: soft, rebound or guarding Results Results 24hrs Laboratory Tests Test 09/25/18 13:07 09/25/18 17:59 09/25/18 20:29 09/26/18 07:58 Bedside Glucose 134 114 101 126 Medications Medication Current Medications Dextrose/Sodium Chloride 1,000 ml @ 40 mls/hr Q24H IV Last administered on 09/25/18 06:26; Admin Dose 40 MLS/HR; Start 09/23/18 at 23:22 IV Flush (NS 3 ml) 3 ml PER PROTOCOL IV ; Start 09/23/18 at 23:30 Acetaminophen (Tylenol Tab) 650 mg Q6H PRN PO .PAIN 1-3 OR TEMP; Start 09/23/18 at 23:30 Acetaminophen (Tylenol Supp) 650 mg Q6H PRN [place] .PAIN 1-3 OR TEMP; Start 09/23/18 at 23:30 Morphine Sulfate (morphine) 2 mg Q4H PRN IV .SEVERE PAIN 7-10 Last administered on 09/24/18 22:20; Admin Dose 2 MG; Start 09/23/18 at 23:30 Pantoprazole (Protonix Iv) 40 mg DAILY@06 IV Last administered on 09/26/18 06:14; Admin Dose 40 MG; Start 09/24/18 at 06:00 Metronidazole 100 ml @ 100 mls/hr TID IVPB Last administered on 09/26/18 08:25; Admin Dose 100 MLS/HR; Start 09/24/18 at 09:00 Ciprofloxacin/ Dextrose 200 ml @ 200 mls/hr Q24H IVPB Last administered on 09/25/18 23:38; Admin Dose 200 MLS/HR; Start 09/23/18 at 23:45 Ondansetron HCl (Zofran Inj) 4 mg Q4H PRN IV NAUSEA/VOMITING Last administered on 09/26/18 04:46; Admin Dose 4 MG; Start 09/24/18 at 06:00 Hydralazine HCl (Apresoline) 10 mg Q6H PRN IV ELEVATED SYSTOLIC BP Last administered on 09/26/18 01:32; Admin Dose 10 MG; Start 09/24/18 at 08:30 Metoclopramide HCl (Reglan) 5 mg Q8 PRN IV NAUSEA AND/OR VOMITING Last administered on 09/26/18 08:24; Admin Dose 5 MG; Start 09/24/18 at 13:30 Amlodipine Besylate (Norvasc) 5 mg BID PO Last administered on 09/26/18at 08:30; Admin Dose 5 MG; Start 09/24/18 at 13:30 Diagnostic Test (Pha) (Accu-Chek) 1 ea 02 XX ; Start 09/25/18 at 02:00 Insulin Aspart (Novolog Insulin Pen) NOVOLOG *MILD* ALGORITHM WITH MEALS BEDTIME SC ; Start 09/24/18 at 18:00 Heparin Sodium (Porcine) (Heparin (1000 Units/ml)) 4,000 unit AFTER DIALYSIS CATHETER Last administered on 09/25/18at 20:02; Admin Dose 4,000 UNIT; Start 09/24/18 at 14:00 Miscellaneous Information 1 ea NOTE XX ; Start 09/24/18 at 14:00 Glucose (Glutose) 15 gm Q15M PRN PO DECREASED GLUCOSE; Start 09/24/18 at 14:00 Glucose (Glutose) 22.5 gm Q15M PRN PO DECREASED GLUCOSE; Start 09/24/18 at 14:00 Dextrose (D50w Syringe) 25 ml Q15M PRN IV DECREASED GLUCOSE; Start 09/24/18 at 14:00 Dextrose (D50w Syringe) 50 ml Q15M PRN IV DECREASED GLUCOSE; Start 09/24/18 at 14:00 Glucagon (Glucagen) 1 mg Q15M PRN IM DECREASED GLUCOSE; Start 09/24/18 at 14:00 Glucose (Glutose) 15 gm Q15M PRN BUCCAL DECREASED GLUCOSE; Start 09/24/18 at 14:00 Benazepril HCl (Lotensin) 20 mg DAILY PO Last administered on 09/26/18at 08:29; Admin Dose 20 MG; Start 09/26/18 at 09:00 DANDY MORRIS September 26, 2018 09:37
--- NOTE | 2018-09-26 11:01 | PREAC ---
Date/Time of Note Date/Time of Note DATE: 09/26/18 TIME: 10:59 Anesthesia Eval and Record Evaluation Time Pre-Procedure Interview DATE: 09/26/18 TIME: 10:59 Age 53 Sex male NPO: 8 hrs Preoperative diagnosis ABDOMINAL PAIN GERD, CONSTIPATION Planned procedure EGD, COLONOSCOPY WITH BIOPSIES Past Medical History Past Medical History: Includes (FIBROMYALGIA) Cardio: HTN, Dyslipidemia Endo: Diabetes GI: Obesity Surgery & Anesthesia Issues No known issue Meds Anticoagulation: No Beta Eloy within 24 hr: No Reason Beta Eloy not given: Pt. not on B-Eloy Active Scripts Hydrocodone/Acetaminophen ([place] 5-325 Tablet) 1 Each Tablet, 1 TAB PO Q6H PRN for PAIN, #7 TAB Prov:HELEN KOWALSKI DO 09/21/18 Ondansetron (Ondansetron Odt) 4 Mg Tab.rapdis, 4 MG PO Q6H PRN for NAUSEA AND/OR VOMITING, #10 TAB Prov:HELEN KOWALSKI DO 09/21/18 Reported Medications Amlodipine Besylate* (Norvasc*) 5 Mg Tablet, 5 MG PO DAILY, TAB 09/24/18 Benazepril Hcl* (Benazepril Hcl*) 20 Mg Tablet, 20 MG PO DAILY, #30 TAB 09/24/18 Calcium Acetate* (Calcium Acetate*) 667 Mg Capsule, 1334 MG PO WITH MEALS, #60 CAP 09/24/18 Current Medications Dextrose/Sodium Chloride 1,000 ml @ 40 mls/hr Q24H IV Last administered on 09/25/18at 06:26; Admin Dose 40 MLS/HR; Start 09/23/18 at 23:22 IV Flush (NS 3 ml) 3 ml PER PROTOCOL IV ; Start 09/23/18 at 23:30 Acetaminophen (Tylenol Tab) 650 mg Q6H PRN PO .PAIN 1-3 OR TEMP; Start 09/23/18 at 23:30 Acetaminophen (Tylenol Supp) 650 mg Q6H PRN [place] .PAIN 1-3 OR TEMP; Start 09/23/18 at 23:30 Morphine Sulfate (morphine) 2 mg Q4H PRN IV .SEVERE PAIN 7-10 Last administered on 09/24/18at 22:20; Admin Dose 2 MG; Start 09/23/18 at 23:30 Pantoprazole (Protonix Iv) 40 mg DAILY@06 IV Last administered on 09/26/18 06:14; Admin Dose 40 MG; Start 09/24/18 at 06:00 Metronidazole 100 ml @ 100 mls/hr TID IVPB Last administered on 09/26/18 08:25; Admin Dose 100 MLS/HR; Start 09/24/18 at 09:00 Ciprofloxacin/ Dextrose 200 ml @ 200 mls/hr Q24H IVPB Last administered on 09/25/18at 23:38; Admin Dose 200 MLS/HR; Start 09/23/18 at 23:45 Ondansetron HCl (Zofran Inj) 4 mg Q4H PRN IV NAUSEA/VOMITING Last administered on 09/26/18 04:46; Admin Dose 4 MG; Start 09/24/18 at 06:00 Hydralazine HCl (Apresoline) 10 mg Q6H PRN IV ELEVATED SYSTOLIC BP Last administered on 09/26/18 01:32; Admin Dose 10 MG; Start 09/24/18 at 08:30 Metoclopramide HCl (Reglan) 5 mg Q8 PRN IV NAUSEA AND/OR VOMITING Last administered on 09/26/18 08:24; Admin Dose 5 MG; Start 09/24/18 at 13:30 Amlodipine Besylate (Norvasc) 5 mg BID PO Last administered on 09/26/18 08:30; Admin Dose 5 MG; Start 09/24/18 at 13:30 Diagnostic Test (Pha) (Accu-Chek) 1 ea 02 XX ; Start 09/25/18 at 02:00 Insulin Aspart (Novolog Insulin Pen) NOVOLOG *MILD* ALGORITHM WITH MEALS BEDTIME SC ; Start 09/24/18 at 18:00 Heparin Sodium (Porcine) (Heparin (1000 Units/ml)) 4,000 unit AFTER DIALYSIS CATHETER Last administered on 09/25/18at 20:02; Admin Dose 4,000 UNIT; Start 09/24/18 at 14:00 Miscellaneous Information 1 ea NOTE XX ; Start 09/24/18 at 14:00 Glucose (Glutose) 15 gm Q15M PRN PO DECREASED GLUCOSE; Start 09/24/18 at 14:00 Glucose (Glutose) 22.5 gm Q15M PRN PO DECREASED GLUCOSE; Start 09/24/18 at 14:00 Dextrose (D50w Syringe) 25 ml Q15M PRN IV DECREASED GLUCOSE; Start 09/24/18 at 14:00 Dextrose (D50w Syringe) 50 ml Q15M PRN IV DECREASED GLUCOSE; Start 09/24/18 at 14:00 Glucagon (Glucagen) 1 mg Q15M PRN IM DECREASED GLUCOSE; Start 09/24/18 at 14:00 Glucose (Glutose) 15 gm Q15M PRN BUCCAL DECREASED GLUCOSE; Start 09/24/18 at 14:00 Benazepril HCl (Lotensin) 40 mg DAILY PO ; Start 09/27/18 at 09:00 Hydralazine HCl (Apresoline) 25 mg TID PO ; Start 09/26/18 at 13:00 Meds reviewed: Yes Allergies Coded Allergies: No Known Drug Allergies (Verified Allergy, Unknown, 09/21/18) Allergies Reviewed: Yes Labs/Studies Labs Reviewed: Reviewed by anesthesiologist Result Diagram: 09/25/18 0514 09/25/18513 test: N/A Pre-procedure Exam Last vitals Vital Signs Date Temp Pulse Resp B/P (MAP) Pulse Ox O2 O2 Flow FiO2 Time Delivery Rate 09/26/18 75 162/80 10:31 (107) 09/26/18 98.0 19 97 08:30 09/25/18 Room Air 20:00 09/24/18 2.0 00:42 Airway: Adequate mouth opening, Adequate thyromental dist Mallampati: Mallampati II Teeth: Normal Lung: Normal Heart: Normal ASA Physical Status ASA physical status: 2 Emergency: None Planned Anesthetic General/MAC: MAC Planned Pain Management Parenteral pain med Pre-operative Attestations Prior to commencing anesthesia and surgery, the patient was re-evaluated, there was verification of: *The patient's identity *The results of appropriate recent lab work and preoperative vital signs *The above evaluation not changing prior to induction *Anesthetic plan, risk benefits, alternative and complications discussed with patient/family; questions answered; patient/family understands, accepts and wishes to proceed. Velasquez Falk M.D. September 26, 2018 11:01
--- NOTE | 2018-09-26 11:15 | PREAC ---
Date/Time of Note Date/Time of Note DATE: 09/26/18 TIME: 11:13 Anesthesia Eval and Record Evaluation Time Pre-Procedure Interview DATE: 09/26/18 TIME: 11:13 Age 53 Sex male NPO: 8 hrs Preoperative diagnosis VOMITING Planned procedure EGD WITH BIOPSIES Past Medical History Past Medical History: Includes Cardio: HTN, Dyslipidemia Endo: Diabetes Renal: ESRD on dialysis Heme: Anemia Surgery & Anesthesia Issues No known issue Meds Anticoagulation: No Beta Eloy within 24 hr: No Reason Beta Eloy not given: Pt. not on B-Eloy Active Scripts Hydrocodone/Acetaminophen ([place] 5-325 Tablet) 1 Each Tablet, 1 TAB PO Q6H PRN for PAIN, #7 TAB Prov:HELEN KOWALSKI DO 09/21/18 Ondansetron (Ondansetron Odt) 4 Mg Tab.rapdis, 4 MG PO Q6H PRN for NAUSEA AND/OR VOMITING, #10 TAB Prov:HELEN KOWALSKI DO 09/21/18 Reported Medications Amlodipine Besylate* (Norvasc*) 5 Mg Tablet, 5 MG PO DAILY, TAB 09/24/18 Benazepril Hcl* (Benazepril Hcl*) 20 Mg Tablet, 20 MG PO DAILY, #30 TAB 09/24/18 Calcium Acetate* (Calcium Acetate*) 667 Mg Capsule, 1334 MG PO WITH MEALS, #60 CAP 09/24/18 Current Medications Dextrose/Sodium Chloride 1,000 ml @ 40 mls/hr Q24H IV Last administered on 09/25/18at 06:26; Admin Dose 40 MLS/HR; Start 09/23/18 at 23:22 IV Flush (NS 3 ml) 3 ml PER PROTOCOL IV ; Start 09/23/18 at 23:30 Acetaminophen (Tylenol Tab) 650 mg Q6H PRN PO .PAIN 1-3 OR TEMP; Start 09/23/18 at 23:30 Acetaminophen (Tylenol Supp) 650 mg Q6H PRN [place] .PAIN 1-3 OR TEMP; Start 09/23/18 at 23:30 Morphine Sulfate (morphine) 2 mg Q4H PRN IV .SEVERE PAIN 7-10 Last administered on 09/24/18at 22:20; Admin Dose 2 MG; Start 09/23/18 at 23:30 Pantoprazole (Protonix Iv) 40 mg DAILY@06 IV Last administered on 09/26/18 06:14; Admin Dose 40 MG; Start 09/24/18 at 06:00 Metronidazole 100 ml @ 100 mls/hr TID IVPB Last administered on 09/26/18 08:25; Admin Dose 100 MLS/HR; Start 09/24/18 at 09:00 Ciprofloxacin/ Dextrose 200 ml @ 200 mls/hr Q24H IVPB Last administered on 09/25/18 23:38; Admin Dose 200 MLS/HR; Start 09/23/18 at 23:45 Ondansetron HCl (Zofran Inj) 4 mg Q4H PRN IV NAUSEA/VOMITING Last administered on 09/26/18 04:46; Admin Dose 4 MG; Start 09/24/18 at 06:00 Hydralazine HCl (Apresoline) 10 mg Q6H PRN IV ELEVATED SYSTOLIC BP Last administered on 09/26/18 01:32; Admin Dose 10 MG; Start 09/24/18 at 08:30 Metoclopramide HCl (Reglan) 5 mg Q8 PRN IV NAUSEA AND/OR VOMITING Last administered on 09/26/18 08:24; Admin Dose 5 MG; Start 09/24/18 at 13:30 Amlodipine Besylate (Norvasc) 5 mg BID PO Last administered on 09/26/18 08:30; Admin Dose 5 MG; Start 09/24/18 at 13:30 Diagnostic Test (Pha) (Accu-Chek) 1 ea 02 XX ; Start 09/25/18 at 02:00 Insulin Aspart (Novolog Insulin Pen) NOVOLOG *MILD* ALGORITHM WITH MEALS BEDTIME SC ; Start 09/24/18 at 18:00 Heparin Sodium (Porcine) (Heparin (1000 Units/ml)) 4,000 unit AFTER DIALYSIS CATHETER Last administered on 09/25/18at 20:02; Admin Dose 4,000 UNIT; Start 09/24/18 at 14:00 Miscellaneous Information 1 ea NOTE XX ; Start 09/24/18 at 14:00 Glucose (Glutose) 15 gm Q15M PRN PO DECREASED GLUCOSE; Start 09/24/18 at 14:00 Glucose (Glutose) 22.5 gm Q15M PRN PO DECREASED GLUCOSE; Start 09/24/18 at 14: 00 Dextrose (D50w Syringe) 25 ml Q15M PRN IV DECREASED GLUCOSE; Start 09/24/18 at 14:00 Dextrose (D50w Syringe) 50 ml Q15M PRN IV DECREASED GLUCOSE; Start 09/24/18 at 14:00 Glucagon (Glucagen) 1 mg Q15M PRN IM DECREASED GLUCOSE; Start 09/24/18 at 14:00 Glucose (Glutose) 15 gm Q15M PRN BUCCAL DECREASED GLUCOSE; Start 09/24/18 at 14:00 Benazepril HCl (Lotensin) 40 mg DAILY PO ; Start 09/27/18 at 09:00 Hydralazine HCl (Apresoline) 25 mg TID PO ; Start 09/26/18 at 13:00 Meds reviewed: Yes Allergies Coded Allergies: No Known Drug Allergies (Verified Allergy, Unknown, 09/21/18) Allergies Reviewed: Yes Labs/Studies Labs Reviewed: Reviewed by anesthesiologist Result Diagram: 09/25/1814 09/25/18513 test: N/A Pre-procedure Exam Last vitals Vital Signs Date Temp Pulse Resp B/P (MAP) Pulse Ox O2 O2 Flow FiO2 Time Delivery Rate 09/26/18 75 162/80 10:31 (107) 09/26/18 98.0 19 97 08:30 09/25/18 Room Air 20:00 09/24/18 2.0 00:42 Airway: Adequate mouth opening, Adequate thyromental dist Mallampati: Mallampati II Teeth: Normal Lung: Normal Heart: Normal ASA Physical Status ASA physical status: 4 Emergency: None Planned Anesthetic General/MAC: MAC Planned Pain Management Parenteral pain med Pre-operative Attestations Prior to commencing anesthesia and surgery, the patient was re-evaluated, there was verification of: *The patient's identity *The results of appropriate recent lab work and preoperative vital signs *The above evaluation not changing prior to induction *Anesthetic plan, risk benefits, alternative and complications discussed with patient/family; questions answered; patient/family understands, accepts and wishes to proceed. Velasquez Falk M.D. September 26, 2018 11:15
[2018-09-26] MEDS ORDERED: PROPOFOL 20 ML ONE (11:34)
[2018-09-26] MEDS ORDERED: LIDOCAINE 2% (SDV) 5 ML INJ ONE (11:34)
[2018-09-26] MEDS ORDERED: FENTAnyl 50 MCG/ML VIAL ONE (11:34)
--- NOTE | 2018-09-26 12:04 | CONS ---
Assessment/Plan Assessment/Plan Assessment/Plan (Daily) End-stage renal disease Peripheral vascular disease Lower extremity ulcerations Continue antibiotics Local wound care Arterial duplex lower extremities Need an AV fistula in the future Consultation Date/Type/Reason Admit Date/Time September 23, 2018 at 23:18 Date of Consultation: September 26, 2018 Type of Consult End-stage renal disease and peripheral vascular disease Reason for Consultation End-stage renal disease peripheral vascular disease Date/Time of Note DATE: 09/26/18 TIME: 12:00 Hx of Present Illness 53-year-old male with a history of hypertension diabetes end-stage renal disease currently on dialysis per permacath which is in the right internal jugular vein patient does not have a fistula patient has bilateral lower extremity ulcerations currently being treated with antibiotics and local wound care Is lethargic Respiratory: no complaints Cardiovascular: no complaints Gastrointestinal: no complaints Genitourinary: no complaints Musculoskeletal: no complaints Skin: no complaints Neurologic: no complaints Past Medical History Medical History: colitis, diabetes, high cholesterol, hypertension, renal disease Home Meds Active Scripts Hydrocodone/Acetaminophen ([place] 5-325 Tablet) 1 Each Tablet, 1 TAB PO Q6H PRN for PAIN, #7 TAB Prov:HELEN KOWALSKI DO 09/21/18 Ondansetron (Ondansetron Odt) 4 Mg Tab.rapdis, 4 MG PO Q6H PRN for NAUSEA AND/OR VOMITING, #10 TAB Prov:HELEN KOWALSKI DO 09/21/18 Reported Medications Amlodipine Besylate* (Norvasc*) 5 Mg Tablet, 5 MG PO DAILY, TAB 09/24/18 Benazepril Hcl* (Benazepril Hcl*) 20 Mg Tablet, 20 MG PO DAILY, #30 TAB 09/24/18 Calcium Acetate* (Calcium Acetate*) 667 Mg Capsule, 1334 MG PO WITH MEALS, #60 CAP 09/24/18 Medications Current Medications Dextrose/Sodium Chloride 1,000 ml @ 40 mls/hr Q24H IV Last administered on 09/25/18at 06:26; Admin Dose 40 MLS/HR; Start 09/23/18 at 23:22 IV Flush (NS 3 ml) 3 ml PER PROTOCOL IV ; Start 09/23/18 at 23:30 Acetaminophen (Tylenol Tab) 650 mg Q6H PRN PO .PAIN 1-3 OR TEMP; Start 09/23/18 at 23:30 Acetaminophen (Tylenol Supp) 650 mg Q6H PRN [place] .PAIN 1-3 OR TEMP; Start 09/23/18 at 23:30 Morphine Sulfate (morphine) 2 mg Q4H PRN IV .SEVERE PAIN 7-10 Last administered on 09/24/18 22:20; Admin Dose 2 MG; Start 09/23/18 at 23:30 Pantoprazole (Protonix Iv) 40 mg DAILY@06 IV Last administered on 09/26/18 06:14; Admin Dose 40 MG; Start 09/24/18 at 06:00 Metronidazole 100 ml @ 100 mls/hr TID IVPB Last administered on 09/26/18 08:25; Admin Dose 100 MLS/HR; Start 09/24/18 at 09:00 Ciprofloxacin/ Dextrose 200 ml @ 200 mls/hr Q24H IVPB Last administered on 09/25/18 23:38; Admin Dose 200 MLS/HR; Start 09/23/18 at 23:45 Ondansetron HCl (Zofran Inj) 4 mg Q4H PRN IV NAUSEA/VOMITING Last administered on 09/26/18 04:46; Admin Dose 4 MG; Start 09/24/18 at 06:00 Hydralazine HCl (Apresoline) 10 mg Q6H PRN IV ELEVATED SYSTOLIC BP Last administered on 09/26/18 01:32; Admin Dose 10 MG; Start 09/24/18 at 08:30 Metoclopramide HCl (Reglan) 5 mg Q8 PRN IV NAUSEA AND/OR VOMITING Last administered on 09/26/18 08:24; Admin Dose 5 MG; Start 09/24/18 at 13:30 Amlodipine Besylate (Norvasc) 5 mg BID PO Last administered on 09/26/18 08:30; Admin Dose 5 MG; Start 09/24/18 at 13:30 Diagnostic Test (Pha) (Accu-Chek) 1 ea 02 XX ; Start 09/25/18 at 02:00 Insulin Aspart (Novolog Insulin Pen) NOVOLOG *MILD* ALGORITHM WITH MEALS BEDTIME SC ; Start 09/24/18 at 18:00 Heparin Sodium (Porcine) (Heparin (1000 Units/ml)) 4,000 unit AFTER DIALYSIS CATHETER Last administered on 5/22/19at 20:02; Admin Dose 4,000 UNIT; Start 09/24/18 at 14:00 Miscellaneous Information 1 ea NOTE XX ; Start 09/24/18 at 14:00 Glucose (Glutose) 15 gm Q15M PRN PO DECREASED GLUCOSE; Start 09/24/18 at 14:00 Glucose (Glutose) 22.5 gm Q15M PRN PO DECREASED GLUCOSE; Start 09/24/18 at 14:00 Dextrose (D50w Syringe) 25 ml Q15M PRN IV DECREASED GLUCOSE; Start 09/24/18 at 14:00 Dextrose (D50w Syringe) 50 ml Q15M PRN IV DECREASED GLUCOSE; Start 09/24/18 at 14:00 Glucagon (Glucagen) 1 mg Q15M PRN IM DECREASED GLUCOSE; Start 09/24/18 at 14:00 Glucose (Glutose) 15 gm Q15M PRN BUCCAL DECREASED GLUCOSE; Start 09/24/18 at 14:00 Benazepril HCl (Lotensin) 40 mg DAILY PO ; Start 09/27/18 at 09:00 Hydralazine HCl (Apresoline) 25 mg TID PO ; Start 09/26/18 at 13:00 Allergies: Coded Allergies: No Known Drug Allergies (Verified Allergy, Unknown, 09/21/18) Social History Smoking Status: Never smoker Exam/Review of Systems Exam Vitals Vital Signs Date Temp Pulse Resp B/P (MAP) Pulse Ox O2 O2 Flow FiO2 Time Delivery Rate 09/26/18 74 13 143/74 94 Room Air 11:55 (97) 09/26/18 98.0 11:34 09/24/18 2.0 00:42 Intake and Output 09/25/18 09/25/18 09/26/18 1515:00 23:00 07:00 IntakeIntake Total 1280 ml 460 ml 520 ml OutputOutput Total 1900 ml BalanceBalance 1280 ml -1440 ml 520 ml Head: normocephalic, atraumatic Eyes: nl conjunctiva, EOMI, nl lids, nl sclera, PERRL ENMT: nl external ears & nose, nl lips & teeth, nl nasal mucosa & septum Neck: supple, non-tender Respiratory: clear to auscultation, normal air movement Cardiovascular: regular rate and rhythm, nl pulses Gastrointestinal: soft, nl liver, spleen, non-tender Additional Comments Bilateral feet ulcerations noted there is palpable femoral pulses no popliteal pedal pulses the upper thighs are warm to touch down to the knee they become cool from the knee down to the ankle Results Result Diagram: 09/25/18 0514 09/25/18 0514 Results 24hrs Laboratory Tests Test 09/25/18 13:07 09/25/18 17:59 09/25/18 20:29 09/26/18 07:58 Bedside Glucose 134 114 101 126 Medications Medication Current Medications Dextrose/Sodium Chloride 1,000 ml @ 40 mls/hr Q24H IV Last administered on 09/25/18 06:26; Admin Dose 40 MLS/HR; Start 09/23/18 at 23:22 IV Flush (NS 3 ml) 3 ml PER PROTOCOL IV ; Start 09/23/18 at 23:30 Acetaminophen (Tylenol Tab) 650 mg Q6H PRN PO .PAIN 1-3 OR TEMP; Start 09/23/18 at 23:30 Acetaminophen (Tylenol Supp) 650 mg Q6H PRN [place] .PAIN 1-3 OR TEMP; Start 09/23/18 at 23:30 Morphine Sulfate (morphine) 2 mg Q4H PRN IV .SEVERE PAIN 7-10 Last administered on 09/24/18at 22:20; Admin Dose 2 MG; Start 09/23/18 at 23:30 Pantoprazole (Protonix Iv) 40 mg DAILY@06 IV Last administered on 09/26/18 06:14; Admin Dose 40 MG; Start 09/24/18 at 06:00 Metronidazole 100 ml @ 100 mls/hr TID IVPB Last administered on 09/26/18 08:25; Admin Dose 100 MLS/HR; Start 09/24/18 at 09:00 Ciprofloxacin/ Dextrose 200 ml @ 200 mls/hr Q24H IVPB Last administered on 09/25/18at 23:38; Admin Dose 200 MLS/HR; Start 09/23/18 at 23:45 Ondansetron HCl (Zofran Inj) 4 mg Q4H PRN IV NAUSEA/VOMITING Last administered on 09/26/18 04:46; Admin Dose 4 MG; Start 09/24/18 at 06:00 Hydralazine HCl (Apresoline) 10 mg Q6H PRN IV ELEVATED SYSTOLIC BP Last administered on 5/23/19at 01:32; Admin Dose 10 MG; Start 09/24/18 at 08:30 Metoclopramide HCl (Reglan) 5 mg Q8 PRN IV NAUSEA AND/OR VOMITING Last administered on 09/26/18at 08:24; Admin Dose 5 MG; Start 09/24/18 at 13:30 Amlodipine Besylate (Norvasc) 5 mg BID PO Last administered on 09/26/18at 08:30; Admin Dose 5 MG; Start 09/24/18 at 13:30 Diagnostic Test (Pha) (Accu-Chek) 1 ea 02 XX ; Start 09/25/18 at 02:00 Insulin Aspart (Novolog Insulin Pen) NOVOLOG *MILD* ALGORITHM WITH MEALS BEDTIME SC ; Start 09/24/18 at 18:00 Heparin Sodium (Porcine) (Heparin (1000 Units/ml)) 4,000 unit AFTER DIALYSIS CATHETER Last administered on 09/25/18at 20:02; Admin Dose 4,000 UNIT; Start 09/24/18 at 14:00 Miscellaneous Information 1 ea NOTE XX ; Start 09/24/18 at 14:00 Glucose (Glutose) 15 gm Q15M PRN PO DECREASED GLUCOSE; Start 09/24/18 at 14:00 Glucose (Glutose) 22.5 gm Q15M PRN PO DECREASED GLUCOSE; Start 09/24/18 at 14:00 Dextrose (D50w Syringe) 25 ml Q15M PRN IV DECREASED GLUCOSE; Start 09/24/18 at 14:00 Dextrose (D50w Syringe) 50 ml Q15M PRN IV DECREASED GLUCOSE; Start 09/24/18 at 14:00 Glucagon (Glucagen) 1 mg Q15M PRN IM DECREASED GLUCOSE; Start 09/24/18 at 14:00 Glucose (Glutose) 15 gm Q15M PRN BUCCAL DECREASED GLUCOSE; Start 09/24/18 at 14:00 Benazepril HCl (Lotensin) 40 mg DAILY PO ; Start 09/27/18 at 09:00 Hydralazine HCl (Apresoline) 25 mg TID PO ; Start 09/26/18 at 13:00 CLEMENT PERRY MD September 26, 2018 12:04
--- NOTE | 2018-09-26 12:06 | PAC ---
Date/Time of Note Date/Time of Note DATE: 09/26/18 TIME: 12:06 Post-Anesthesia Notes Post-Anesthesia Note Last documented vital signs Vital Signs Date Temp Pulse Resp B/P (MAP) Pulse Ox O2 O2 Flow FiO2 Time Delivery Rate 09/26/18 75 162/80 10:31 (107) 09/26/18 98.0 19 97 08:30 09/25/18 Room Air 20:00 09/24/18 2.0 00:42 Activity: WNL Respiratory function: WNL Cardiovascular function: WNL Mental status: Baseline Pain reasonably controlled: Yes Hydration appropriate: Yes Nausea/Vomiting absent: Yes Velasquez Falk M.D. September 26, 2018 12:06
[2018-09-26] MEDS: morphine 2 MG INJ IV PRN (19:43)
[2018-09-26] MEDS: DEXTROSE 5%-0.45% NACL 1,000 ML IV SCH (19:46)
[2018-09-26] MEDS ORDERED: BISACODYL 10 MG SUPP PR PRN (21:00)
[2018-09-26] MEDS ORDERED: POLYETHYLENE GLYCOL 17 GM PACKET PO PRN (21:00)
[2018-09-26] MEDS: DOCUSATE SODIUM 100 MG CAP PO PRN (21:04)
[2018-09-26] MEDS: CIPROFLOXACIN 500 MG TAB PO SCH (23:38)
[2018-09-26] MEDS: metroNIDAZOLE 500 MG TAB PO SCH (23:40)
[2018-09-27] VITALS (17 sets, daily range): BP systolic 146–170; BP diastolic 72–95; PULSE 68–82; RESP 17–20
[2018-09-27] MEDS: ACCU-CHEK XX SCH (01:24)
[2018-09-27] MEDS: ONDANSETRON 4 MG INJ IV PRN ×2 (02:25→06:35)
[2018-09-27] MEDS ORDERED: PANTOPRAZOLE (EC) 40 MG TAB PO SCH (06:00)
[2018-09-27] MEDS: morphine 2 MG INJ IV PRN (06:36)
[2018-09-27] MEDS: INSULIN ASPART [NOVOLOG] 3 ML PEN SC SCH ×4 (08:00→21:00)
[2018-09-27] MEDS: metroNIDAZOLE 500 MG TAB PO SCH ×3 (08:20→21:54)
[2018-09-27] MEDS: METOCLOPRAMIDE 10 MG INJ IV PRN (08:21)
[2018-09-27] MEDS: BENAZEPRIL 20 MG TAB PO SCH (08:23)
[2018-09-27] MEDS: AMLODIPINE 5 MG TAB PO SCH ×2 (08:23→21:55)
--- NOTE | 2018-09-27 10:08 | PN ---
Date/Time of Note Date/Time of Note DATE: 09/27/18 TIME: 10:08 Assessment/Plan VTE Prophylaxis Risk score (from Ns)>0 risk: 3 [place] [facility] [place] contraindicated: low risk/ambulating Pharmacological prophylaxis: NA/contraindicated Pharm contraindication: blood coag disorder Lines/Catheters IV [facility] [place] Assessment/Plan Hospital Course 1. Abdominal pain, nausea, vomiting, secondary to gastritis, gastroesophagitis/gastroparesis; however CT of the abdomen and pelvis shows colitis. Diarrhoea resolved, vomiting still persistent. S/p EGD 2. Colitis evident on the CAT scan; however, the patient does not have diarrhea. 3. End-stage renal disease, on hemodialysis. 4. Hyperlipidemia. 5. Diabetes. 6. Hypertension, controlled. 7. Status post amputation of the right great toe. 8. Anemia chronic disease 9. Hyponatremia 10 Vit . D deficeincy 11. Hypocalcemia Assessment/Plan -EGD results seen - IV Zofran/reglan - GI consult appreciated -cw hd -GI prophylaxis PPI and dr kaur added Carafate -SCD while in bed, anemia - cw amlodipine, lisinopril, Benazepril, Hydralazine TID - cw cipro/flagyl -TUMS bID -vit D weekly Result Diagram: 09/27/18 0507 09/27/18 0507 Results 24hrs Laboratory Tests Test 09/26/18 12:21 09/26/18 17:24 09/26/18 21:12 09/27/18 05:05 Bedside Glucose 115 151 151 Vitamin D 21.9 L 1,25-Dihydroxy Test 09/27/18 05:07 09/27/18 08:20 White Blood Count 6.6 Red Blood Count 4.11 L Hemoglobin 10.7 L Hematocrit 33.5 L Mean Corpuscular 81.5 L Volume Mean Corpuscular 26.0 L Hemoglobin Mean Corpuscular 31.9 L Hemoglobin Concent Red Cell 16.3 H Distribution Width Platelet Count 207 Mean Platelet Volume 9.1 Immature 0.800 H Granulocytes % Neutrophils % 73.9 Lymphocytes % 11.5 L Monocytes % 10.9 Eosinophils % 2.6 Basophils % 0.3 Nucleated Red Blood 0.0 Cells % Immature 0.050 H Granulocytes # Neutrophils # 4.9 Lymphocytes # 0.8 Monocytes # 0.7 Eosinophils # 0.2 Basophils # 0.0 Nucleated Red Blood 0.0 Cells # Sodium Level 135 Potassium Level 4.0 Chloride Level 98 Carbon Dioxide Level 24 Anion Gap 13 Blood Urea Nitrogen 27 H Creatinine 9.70 H Est Glomerular 6 L Filtrat Rate mL/min Glucose Level 121 Hemoglobin A1c 5.7 Calcium Level 8.2 L Phosphorus Level 6.2 H Iron Level 31 L Total Iron Binding 195 L Capacity Percent Iron 16 L Saturation Bedside Glucose 115 Subjective 24 Hr Interval Summary Gastrointestinal: decreased appetite, nausea, vomiting Exam/Review of Systems Exam Vitals Vital Signs Date Temp Pulse Resp B/P (MAP) Pulse Ox O2 O2 Flow FiO2 Time Delivery Rate 09/27/18 98.1 78 170/88 97 Room Air 07:45 (115) 09/27/18 18 01:58 09/24/18 2.0 00:42 Intake and Output 09/26/18 09/26/18 09/27/18 1515:00 23:00 07:00 IntakeIntake Total 720 ml 1040 ml 200 ml BalanceBalance 720 ml 1040 ml 200 ml Exam right chest permcath Constitutional: alert, oriented Head: normocephalic Eyes: nl conjunctiva Neck: supple Respiratory: clear to auscultation Gastrointestinal: soft, rebound or guarding Genitourinary - Male: CVA tenderness; No nl penis, No nl scrotum, No discharge, No other Results Results 24hrs Laboratory Tests Test 09/26/18 12:21 09/26/18 17:24 09/26/18 21:12 09/27/18 05:05 Bedside Glucose 115 151 151 Vitamin D 21.9 L 1,25-Dihydroxy Test 09/27/18 05:07 09/27/18 08:20 White Blood Count 6.6 Red Blood Count 4.11 L Hemoglobin 10.7 L Hematocrit 33.5 L Mean Corpuscular 81.5 L Volume Mean Corpuscular 26.0 L Hemoglobin Mean Corpuscular 31.9 L Hemoglobin Concent Red Cell 16.3 H Distribution Width Platelet Count 207 Mean Platelet Volume 9.1 Immature 0.800 H Granulocytes % Neutrophils % 73.9 Lymphocytes % 11.5 L Monocytes % 10.9 Eosinophils % 2.6 Basophils % 0.3 Nucleated Red Blood 0.0 Cells % Immature 0.050 H Granulocytes # Neutrophils # 4.9 Lymphocytes # 0.8 Monocytes # 0.7 Eosinophils # 0.2 Basophils # 0.0 Nucleated Red Blood 0.0 Cells # Sodium Level 135 Potassium Level 4.0 Chloride Level 98 Carbon Dioxide Level 24 Anion Gap 13 Blood Urea Nitrogen 27 H Creatinine 9.70 H Est Glomerular 6 L Filtrat Rate mL/min Glucose Level 121 Hemoglobin A1c 5.7 Calcium Level 8.2 L Phosphorus Level 6.2 H Iron Level 31 L Total Iron Binding 195 L Capacity Percent Iron 16 L Saturation Bedside Glucose 115 Medications Medication Current Medications IV Flush (NS 3 ml) 3 ml PER PROTOCOL IV ; Start 09/23/18 at 23:30 Acetaminophen (Tylenol Tab) 650 mg Q6H PRN PO .PAIN 1-3 OR TEMP; Start 09/23/18 at 23:30 Acetaminophen (Tylenol Supp) 650 mg Q6H PRN [place] .PAIN 1-3 OR TEMP; Start 09/23/18 at 23:30 Morphine Sulfate (morphine) 2 mg Q4H PRN IV .SEVERE PAIN 7-10 Last administered on 09/27/18at 06:36; Admin Dose 2 MG; Start 09/23/18 at 23:30 Ondansetron HCl (Zofran Inj) 4 mg Q4H PRN IV NAUSEA/VOMITING Last administered on 09/27/18at 06:35; Admin Dose 4 MG; Start 09/24/18 at 06:00 Hydralazine HCl (Apresoline) 10 mg Q6H PRN IV ELEVATED SYSTOLIC BP Last administered on 09/26/18at 01:32; Admin Dose 10 MG; Start 09/24/18 at 08:30 Metoclopramide HCl (Reglan) 5 mg Q8 PRN IV NAUSEA AND/OR VOMITING Last administered on 09/27/18at 08:21; Admin Dose 5 MG; Start 09/24/18 at 13:30 Amlodipine Besylate (Norvasc) 5 mg BID PO Last administered on 09/27/18at 08:23; Admin Dose 5 MG; Start 09/24/18 at 13:30 Diagnostic Test (Pha) (Accu-Chek) 1 ea 02 XX ; Start 09/25/18 at 02:00 Insulin Aspart (Novolog Insulin Pen) NOVOLOG *MILD* ALGORITHM WITH MEALS BEDTIME SC ; Start 09/24/18 at 18:00 Heparin Sodium (Porcine) (Heparin (1000 Units/ml)) 4,000 unit AFTER DIALYSIS CATHETER Last administered on 09/25/18at 20:02; Admin Dose 4,000 UNIT; Start 09/24/18 at 14:00 Miscellaneous Information 1 ea NOTE XX ; Start 09/24/18 at 14:00 Glucose (Glutose) 15 gm Q15M PRN PO DECREASED GLUCOSE; Start 09/24/18 at 14:00 Glucose (Glutose) 22.5 gm Q15M PRN PO DECREASED GLUCOSE; Start 09/24/18 at 14:00 Dextrose (D50w Syringe) 25 ml Q15M PRN IV DECREASED GLUCOSE; Start 09/24/18 at 14:00 Dextrose (D50w Syringe) 50 ml Q15M PRN IV DECREASED GLUCOSE; Start 09/24/18 at 14:00 Glucagon (Glucagen) 1 mg Q15M PRN IM DECREASED GLUCOSE; Start 09/24/18 at 14:00 Glucose (Glutose) 15 gm Q15M PRN BUCCAL DECREASED GLUCOSE; Start 09/24/18 at 14:00 Benazepril HCl (Lotensin) 40 mg DAILY PO Last administered on 09/27/18 08:23; Admin Dose 40 MG; Start 09/27/18 at 09:00 Hydralazine HCl (Apresoline) 25 mg TID PO Last administered on 09/27/18 08:23; Admin Dose 25 MG; Start 09/26/18 at 13:00 Pantoprazole (Protonix Tab) 40 mg DAILY@06 PO Last administered on 09/27/18at 06:35; Admin Dose 40 MG; Start 09/27/18 at 06:00 Ciprofloxacin (Cipro) 500 mg Q24H PO Last administered on 09/26/18at 23:38; Admin Dose 500 MG; Start 09/26/18 at 23:00 Metronidazole (Flagyl) 500 mg TID PO Last administered on 09/27/18 08:20; Admin Dose 500 MG; Start 09/26/18 at 21:00 Docusate Sodium (Colace) 100 mg BID PRN PO CONSTIPATION Last administered on 09/26/18 21:04; Admin Dose 100 MG; Start 09/26/18 at 21:00 Polyethylene Glycol (Miralax) 17 gm DAILY PRN PO CONSTIPATION Last administered on 09/26/18 21:04; Admin Dose 17 GM; Start 09/26/18 at 21:00 Bisacodyl (Dulcolax Supp) 10 mg DAILY PRN [place] CONSTIPATION; Start 09/26/18 at 21:00 DANDY MORRIS September 27, 2018 10:08
[2018-09-27] MEDS: CALCIUM CARBONATE 500 MG CHEW TAB PO SCH ×2 (10:35→21:54)
[2018-09-27] MEDS ORDERED: SOD FERRIC GLUC COMPLX 125 MG in SOD CHLORIDE 0.9% 100 ML IVPB SCH (13:00)
--- NOTE | 2018-09-27 14:44 | CONS ---
Assessment/Plan Assessment/Plan Assessment/Plan (Daily) Assessment/Plan Assessment/Plan Assessment/Plan (Daily) 1. Abdominal pain 2. Nausea and vomiting secondary to diabetic gastroparesis 3. Constipation per pt 4. Mild thickening of the descending and sigmoid colon which may represent acute colitis. 5. Anemia,acute 6. Renal disease on HD 7. Htn 8. DM Plan Continue present care Reglan [id number] Macrolide antibiotic as a prokinetic agent Consultation Date/Type/Reason Admit Date/Time September 23, 2018 at 23:18 Initial Consult Date Date/Time of Note DATE: 09/27/18 TIME: 14:43 24 HR Interval Summary Free Text/Dictation Patient complains of nausea and vomiting Exam/Review of Systems Exam Vitals Vital Signs Date Temp Pulse Resp B/P (MAP) Pulse Ox O2 O2 Flow FiO2 Time Delivery Rate 09/27/18 98.0 79 17 153/75 98 Room Air 14:33 (101) 09/24/18 2.0 00:42 Intake and Output 09/26/18 09/26/18 09/27/18 1515:00 23:00 07:00 IntakeIntake Total 720 ml 1040 ml 200 ml BalanceBalance 720 ml 1040 ml 200 ml Constitutional: alert, oriented, well developed Psych: no complaints, nl mood/affect Head: normocephalic, atraumatic Eyes: nl conjunctiva, EOMI, nl lids, nl sclera, PERRL ENMT: nl external ears & nose, nl lips & teeth, nl nasal mucosa & septum Neck: supple, non-tender Respiratory: clear to auscultation, normal air movement Cardiovascular: regular rate and rhythm, nl pulses Gastrointestinal: soft, nl liver, spleen, non-tender Musculoskeletal: nl extremities to inspection, nl gait and stance Extremities: normal pulses Neurological: DESK DIRECTOR II-XII intact, nl mental status, nl speech, nl strength Skin: nl turgor; No rash or lesions Lymph: nl lymph nodes Results Result Diagram: 09/27/18 0507 09/27/18 0507 Results 24hrs Laboratory Tests Test 09/26/18 17:24 09/26/18 21:12 09/27/18 05:05 09/27/18 05:07 Bedside Glucose 151 151 Vitamin D 21.9 L 1,25-Dihydroxy White Blood Count 6.6 Red Blood Count 4.11 L Hemoglobin 10.7 L Hematocrit 33.5 L Mean Corpuscular 81.5 L Volume Mean Corpuscular 26.0 L Hemoglobin Mean Corpuscular 31.9 L Hemoglobin Concent Red Cell 16.3 H Distribution Width Platelet Count 207 Mean Platelet Volume 9.1 Immature 0.800 H Granulocytes % Neutrophils % 73.9 Lymphocytes % 11.5 L Monocytes % 10.9 Eosinophils % 2.6 Basophils % 0.3 Nucleated Red Blood 0.0 Cells % Immature 0.050 H Granulocytes # Neutrophils # 4.9 Lymphocytes # 0.8 Monocytes # 0.7 Eosinophils # 0.2 Basophils # 0.0 Nucleated Red Blood 0.0 Cells # Sodium Level 135 Potassium Level 4.0 Chloride Level 98 Carbon Dioxide Level 24 Anion Gap 13 Blood Urea Nitrogen 27 H Creatinine 9.70 H Est Glomerular 6 L Filtrat Rate mL/min Glucose Level 121 Hemoglobin A1c 5.7 Calcium Level 8.2 L Phosphorus Level 6.2 H Iron Level 31 L Total Iron Binding 195 L Capacity Percent Iron 16 L Saturation Test 09/27/18 08:20 09/27/18 13:02 Bedside Glucose 115 150 Medications Medication Current Medications IV Flush (NS 3 ml) 3 ml PER PROTOCOL IV ; Start 09/23/18 at 23:30 Acetaminophen (Tylenol Tab) 650 mg Q6H PRN PO .PAIN 1-3 OR TEMP; Start 09/23/18 at 23:30 Acetaminophen (Tylenol Supp) 650 mg Q6H PRN NV .PAIN 1-3 OR TEMP; Start 09/23/18 at 23:30 Morphine Sulfate (morphine) 2 mg Q4H PRN IV .SEVERE PAIN 7-10 Last administered on 09/27/18at 06:36; Admin Dose 2 MG; Start 09/23/18 at 23:30 Ondansetron HCl (Zofran Inj) 4 mg Q4H PRN IV NAUSEA/VOMITING Last administered on 09/27/18at 06:35; Admin Dose 4 MG; Start 09/24/18 at 06:00 Hydralazine HCl (Apresoline) 10 mg Q6H PRN IV ELEVATED SYSTOLIC BP Last administered on 09/26/18at 01:32; Admin Dose 10 MG; Start 09/24/18 at 08:30 Metoclopramide HCl (Reglan) 5 mg Q8 PRN IV NAUSEA AND/OR VOMITING Last administered on 09/27/18 08:21; Admin Dose 5 MG; Start 09/24/18 at 13:30 Amlodipine Besylate (Norvasc) 5 mg BID PO Last administered on 09/27/18 08:23; Admin Dose 5 MG; Start 09/24/18 at 13:30 Diagnostic Test (Pha) (Accu-Chek) 1 ea 02 XX ; Start 09/25/18 at 02:00 Insulin Aspart (Novolog Insulin Pen) NOVOLOG *MILD* ALGORITHM WITH MEALS BEDTIME SC ; Start 09/24/18 at 18:00 Heparin Sodium (Porcine) (Heparin (1000 Units/ml)) 4,000 unit AFTER DIALYSIS CATHETER Last administered on 09/25/18at 20:02; Admin Dose 4,000 UNIT; Start 09/24/18 at 14:00 Miscellaneous Information 1 ea NOTE XX ; Start 09/24/18 at 14:00 Glucose (Glutose) 15 gm Q15M PRN PO DECREASED GLUCOSE; Start 09/24/18 at 14:00 Glucose (Glutose) 22.5 gm Q15M PRN PO DECREASED GLUCOSE; Start 09/24/18 at 14:00 Dextrose (D50w Syringe) 25 ml Q15M PRN IV DECREASED GLUCOSE; Start 09/24/18 at 14:00 Dextrose (D50w Syringe) 50 ml Q15M PRN IV DECREASED GLUCOSE; Start 09/24/18 at 14:00 Glucagon (Glucagen) 1 mg Q15M PRN IM DECREASED GLUCOSE; Start 09/24/18 at 14:00 Glucose (Glutose) 15 gm Q15M PRN BUCCAL DECREASED GLUCOSE; Start 09/24/18 at 14:00 Benazepril HCl (Lotensin) 40 mg DAILY PO Last administered on 09/27/18at 08:23; Admin Dose 40 MG; Start 09/27/18 at 09:00 Hydralazine HCl (Apresoline) 25 mg TID PO Last administered on 09/27/18 08:23; Admin Dose 25 MG; Start 09/26/18 at 13:00 Ciprofloxacin (Cipro) 500 mg Q24H PO Last administered on 09/26/18at 23:38; Admin Dose 500 MG; Start 09/26/18 at 23:00 Metronidazole (Flagyl) 500 mg TID PO Last administered on 09/27/18at 13:03; Admin Dose 500 MG; Start 09/26/18 at 21:00 Docusate Sodium (Colace) 100 mg BID PRN PO CONSTIPATION Last administered on 09/26/18at 21:04; Admin Dose 100 MG; Start 09/26/18 at 21:00 Polyethylene Glycol (Miralax) 17 gm DAILY PRN PO CONSTIPATION Last administered on 09/26/18at 21:04; Admin Dose 17 GM; Start 09/26/18 at 21:00 Bisacodyl (Dulcolax Supp) 10 mg DAILY PRN NV CONSTIPATION; Start 09/26/18 at 21:00 Pantoprazole (Protonix Tab) 40 mg BID@0600,1800 PO ; Start 09/27/18 at 18:00 Ferric Sodium Gluconate Complex 125 mg/Sodium Chloride 100 ml @ 100 mls/hr DAILY@1300 IVPB Last administered on 09/27/18at 13:03; Admin Dose 100 MLS/HR; Start 09/27/18 at 13:00; Stop 09/29/18 at 13:59 Ergocalciferol (Drisdol) 50,000 unit Sa@09 PO ; Start 09/28/18 at 09:00 Calcium Carbonate (Tums) 500 mg BID PO Last administered on 09/27/18at 10:35; Admin Dose 500 MG; Start 09/27/18 at 10:30 Metoclopramide HCl (Reglan) 5 mg Q6 IV ; Start 09/27/18 at 18:00 LEANNA NULL MD September 27, 2018 14:44
[2018-09-27] MEDS: DOCUSATE SODIUM 100 MG CAP PO PRN (15:22)
--- NOTE | 2018-09-27 16:20 | PN ---
Date/Time of Note Date/Time of Note DATE: 09/27/18 TIME: 16:17 Assessment/Plan Lines/Catheters IV Catheter Type (from Nrsg): Saline Lock Assessment/Plan Assessment/Plan End-stage renal disease Continue antibiotics Arterial duplex lower extremities Need an AV fistula in the future Subjective 24 Hr Interval Summary Constitutional: improved Pain Control: mild Exam/Review of Systems Vital Signs Vitals Vital Signs Date Temp Pulse Resp B/P (MAP) Pulse Ox O2 O2 Flow FiO2 Time Delivery Rate 09/27/18 98.0 79 17 153/75 98 Room Air 14:33 (101) 09/24/18 2.0 00:42 Intake and Output 09/26/18 09/26/18 09/27/18 1515:00 23:00 07:00 IntakeIntake Total 720 ml 1040 ml 200 ml BalanceBalance 720 ml 1040 ml 200 ml Exam Eyes: nl conjunctiva, EOMI, nl lids, nl sclera ENMT: nl external ears & nose, nl lips & teeth, nl nasal mucosa & septum, mucosa pink and moist Neck: supple, non-tender Respiratory: clear to auscultation, normal air movement Cardiovascular: regular rate and rhythm, nl pulses Gastrointestinal: soft, nl liver, spleen, non-tender Musculoskeletal: nl extremities to inspection, nl gait and stance Results Result Diagram: 09/27/18 0507 09/27/18 0507 CLEMENT PERRY MD September 27, 2018 16:20
[2018-09-27] MEDS: PANTOPRAZOLE (EC) 40 MG TAB PO SCH (17:24)
[2018-09-27] MEDS: METOCLOPRAMIDE 10 MG INJ IV SCH ×2 (17:24→23:32)
[2018-09-27] MEDS: HEPARIN 1000 UNITS/ML 10 ML INJ CATHETER SCH (20:46)
[2018-09-27] MEDS: ERYTHROMYCIN BASE (DR) 250 MG CAP PO SCH (21:54)
[2018-09-27] MEDS: CIPROFLOXACIN 500 MG TAB PO SCH (23:32)
[2018-09-28] MEDS: ACCU-CHEK XX SCH (01:33)
[2018-09-28 01:52] VITALS: BP 163/79; PULSE 87; RESP 18
[2018-09-28 02:25] VITALS: BP 155/85; PULSE 74; RESP 18
[2018-09-28] MEDS: ERYTHROMYCIN BASE (DR) 250 MG CAP PO SCH (05:59)
[2018-09-28] MEDS: PANTOPRAZOLE (EC) 40 MG TAB PO SCH (05:59)
[2018-09-28] MEDS: METOCLOPRAMIDE 10 MG INJ IV SCH (05:59)
[2018-09-28] MEDS: INSULIN ASPART [NOVOLOG] 3 ML PEN SC SCH (08:00)
[2018-09-28 08:41] VITALS: BP 164/86; PULSE 80; RESP 20
[2018-09-28] MEDS ORDERED: ERGOCALCIFEROL 50,000 UNIT CAP PO SCH (09:00)
--- NOTE | 2018-09-28 09:45 | DS ---
Date/Time of Note Date/Time of Note DATE: 09/28/18 TIME: 09:44 Discharge Summary Admission/Discharge Info Admit Date/Time September 23, 2018 at 23:18 Discharge Date/Time Discharge Diagnosis biliary gastritis Patient Condition: Stable Consults Dr Francois, GI, Dr Don, vascualar surgeon Procedures EGD Hospital Course This is a 53-year-old male with a past medical history of hypertension, diabetes, end-stage renal disease on hemodialysis Sunday, Sunday, Sunday, started in 03/2018, presented to the emergency department complaining of lower abdominal pain and associated with nausea, vomiting for the last 2 weeks. According to the patient, he was doing fine until 2 weeks ago and started having nausea and vomiting especially after dialysis. The patient came to the ER 3 days ago with the same symptoms, was given medication and sent home, but the symptoms did not get any better, so came to the emergency department. According to the patient, he has been having lower diffuse abdominal pain intermittently for the last 2 weeks, vomited, had been continuous for the last 2 days. He has not been able to eat. Denied any hematemesis, any melena, any bright blood per rectum. Denied any diarrhea. Denied any fevers and chills. On arrival to ED, vital signs showed temperature of 98.3, blood pressure of 186/93, pulse 75, respirations 20, saturating 98%. White count of 8.2, hemoglobin 10.3, platelet count 182, sodium 133, potassium 3.5, chloride 95, bicarbonate 25, BUN of 26, creatinine 7.14. The patient had a chest x-ray that showed no evidence of acute cardiopulmonary disease. The patient had a CT of the abdomen and pelvis that showed mild thickening of descending and sigmoid colons showing acute colitis, moderate cardiomegaly with trace pericardial effusion, few nonspecific bilateral lower lobe glass opacities, moderate cardiomegaly and trace pericardial effusion. The patient was started on IV fluids, Zofran, Flagyl and Zosyn and was admitted for further management. PAST MEDICAL HISTORY: 1. Diabetes. 2. Hypertension. 3. Hyperlipidemia. ALLERGIES: NONE. PAST SURGICAL HISTORY: The patient had a right foot great toe amputation. The patient had a right PermCath placement. MEDICATIONS TAKING AT HOME: 1. Glipizide. 2. Two blood pressure medicines. 3. Calcium. SOCIAL HISTORY: Denies any history of smoking, alcohol or any drug use. Lives with mother. FAMILY HISTORY: Significant for kidney disease in the father who . 1. Abdominal pain, nausea, vomiting, secondary to gastritis, gastroesophagitis/gastroparesis; however CT of the abdomen and pelvis shows colitis. Diarrhoea resolved, vomiting still persistent. S/p EGD 2. Colitis evident on the CAT scan; however, the patient does not have diarrhea. 3. End-stage renal disease, on hemodialysis. 4. Hyperlipidemia. 5. Diabetes. 6. Hypertension, controlled. 7. Status post amputation of the right great toe. 8. Anemia chronic disease 9. Hyponatremia 10 Vit . D deficiency. 11. Hypocalcemia During hospitalization pt was in medsurg service. Dr Francois performed EGD that showed gastritis with gastroparesis. Results were d/ssed with pt. He was given IV Zofran/reglan. we continued pt with hd. GI prophylaxis is with PPI and dr Francois added Carafate after EGD. Hypertensive control was achieved with amlodipine, lisinopril, Benazepril, Hydralazine TID. We gave pt cipro/flagyl and TUMS BID. Vit D was ordered weekly. Pt was instructed to follow bland diet. BS was under reasonable control.. Dr Don evaluated pt on AV fistula. Pt was given card to f/up with him outpatient Home Meds Active Scripts Ergocalciferol (Vitamin D2) (VITAMIN D2) 50,000 Unit Capsule, 74729 UNIT PO Sa@09 for 90 Days, CAP Prov:DANDY MORRIS 09/28/18 Pantoprazole* (Pantoprazole*) 40 Mg Tablet.dr, 40 MG PO BID@0600,1800 for 28 Days Prov:DANDY MORRIS 09/28/18 Calcium Carbonate (CALCIUM CARBONATE) 200 Mg Tab.chew, 500 MG PO BID for 30 Days, TAB.CHEW Prov:DANDY MORRIS 09/28/18 Hydralazine Hcl* (Hydralazine Hcl*) 25 Mg Tab, 25 MG PO TID for 30 Days, TAB Prov:DANDY MORRIS 09/28/18 Benazepril Hcl* (Benazepril Hcl*) 20 Mg Tablet, 40 MG PO DAILY for 30 Days, TAB Prov:DANDY MORRIS 09/28/18 Amlodipine Besylate* (Amlodipine Besylate*) 5 Mg Tablet, 5 MG PO BID for 30 Days, TAB Prov:DANDY MORRIS 09/28/18 Ciprofloxacin Hcl* (Ciprofloxacin Hcl*) 500 Mg Tablet, 500 MG PO Q24H for 10 Days, TAB Prov:DANDY MORRIS 09/28/18 Erythromycin* (Erythromycin* EC) 250 Mg Capsule.dr, 250 MG PO Q8 for 10 Days Prov:DANDY MORRIS 09/28/18 Ondansetron (Ondansetron Odt) 4 Mg Tab.rapdis, 4 MG PO Q6H PRN for NAUSEA AND/OR VOMITING, #10 TAB Prov:DANDY MORRIS 09/28/18 Reported Medications Calcium Acetate* (Calcium Acetate*) 667 Mg Capsule, 1334 MG PO WITH MEALS, #60 CAP 09/24/18 Discontinued Reported Medications Amlodipine Besylate* (Norvasc*) 5 Mg Tablet, 5 MG PO DAILY, TAB 09/24/18 Benazepril Hcl* (Benazepril Hcl*) 20 Mg Tablet, 20 MG PO DAILY, #30 TAB 09/24/18 Discontinued Scripts Hydrocodone/Acetaminophen ([place] 5-325 Tablet) 1 Each Tablet, 1 TAB PO Q6H PRN for PAIN, #7 TAB Prov:HELEN KOWALSKI DO 09/21/18 Primary Care Provider Not On Staff Doctor Time spent on discharge: < 30 minutes Pending Labs Laboratory Tests Test 09/27/18 13:02 09/27/18 17:23 09/27/18 21:53 09/28/18 05:43 Bedside 150 233 87 Glucose mg/dL (70-220) mg/dL (70-220) mg/dL (70-220) Ionized Calcium 1.1 (Measured) mmol/L (1.1-1. 4) Parathyroid 127.7 Hormone pg/ml (24.0-73 .0) Test 09/28/18 08:00 Bedside 108 Glucose mg/dL (70-220) DANDY MORRIS September 28, 2018 09:45
--- NOTE | 2018-09-28 09:47 | PDOCDIS ---
Discharge Instructions DIAGNOSIS Discharge Diagnosis gastritis, colitis CONDITION [id number] Patient Condition: [id number] Stable HOME CARE INSTRUCTIONS: [id number] Diet Instructions: Srunk6t y Rest between Activity Avoid heavy lifting [id number] Bathing Restrictions: [id number] Shower FOLLOW UP/APPOINTMENTS Follow-up Plan PCP [address] Francois office 2 weeks DANDY MORRIS September 28, 2018 09:47
[2018-09-28] MEDS ORDERED: AMLO-145 PO (09:50)
[2018-09-28] MEDS ORDERED: CIPR500T4 PO (09:50)
[2018-09-28] MEDS ORDERED: ONDA4TAB14 PO (09:50)
[2018-09-28] MEDS ORDERED: CALC200T26 PO (09:50)
[2018-09-28] MEDS ORDERED: HYDR-3671 PO (09:50)
[2018-09-28] MEDS ORDERED: ERYT250C52 PO (09:50)
[2018-09-28] MEDS ORDERED: PANT40TA4 PO (09:50)
[2018-09-28] MEDS ORDERED: BENA20TA4 PO (09:50)
[2018-09-28] MEDS ORDERED: ERGO500013 PO (09:50)
[2018-09-28] MEDS ORDERED: LABETALOL 100 MG TAB PO SCH (10:00)
--- NOTE | 2018-09-28 10:06 | CONS ---
Assessment/Plan Assessment/Plan Assessment/Plan (Daily) Assessment/Plan (Daily) 1. Abdominal pain 2. Nausea and vomiting secondary to diabetic gastroparesis 3. Constipation per pt 4. Mild thickening of the descending and sigmoid colon which may represent acute colitis. 5. Anemia,acute 6. Renal disease on HD 7. Htn 8. DM Plan Continue present care Reglan [id number] Macrolide antibiotic as a prokinetic agent Consultation Date/Type/Reason Admit Date/Time September 23, 2018 at 23:18 Initial Consult Date 09/26/18 Type of Consult GI Date/Time of Note DATE: 09/28/18 TIME: 10:04 24 HR Interval Summary Free Text/Dictation nausea improved, no vomiting Exam/Review of Systems Exam Vitals Vital Signs Date Temp Pulse Resp B/P (MAP) Pulse Ox O2 O2 Flow FiO2 Time Delivery Rate 09/28/18 98.3 80 20 164/86 94 08:41 (112) 09/27/18 Room Air 21:15 Intake and Output 09/27/18 09/27/18 09/28/18 1515:00 23:00 07:00 IntakeIntake Total 340 ml 120 ml OutputOutput Total 3600 ml BalanceBalance 340 ml -3480 ml Constitutional: alert, oriented, well developed Psych: no complaints, nl mood/affect Head: normocephalic, atraumatic Eyes: nl conjunctiva, EOMI, nl lids ENMT: nl external ears & nose, nl lips & teeth, nl nasal mucosa & septum Neck: supple, non-tender Respiratory: clear to auscultation, normal air movement Cardiovascular: regular rate and rhythm, nl pulses Gastrointestinal: soft, non-tender, bowel sounds Results Result Diagram: 09/27/18 0507 09/27/18 0507 Results 24hrs Laboratory Tests Test 09/27/18 13:02 09/27/18 17:23 09/27/18 21:53 09/28/18 05:43 Bedside Glucose 150 233 H 87 Ionized Calcium 1.1 (Measured) Parathyroid Hormone 127.7 H Test 09/28/18 08:00 Bedside Glucose 108 Medications Medication Current Medications IV Flush (NS 3 ml) 3 ml PER PROTOCOL IV ; Start 09/23/18 at 23:30 Acetaminophen (Tylenol Tab) 650 mg Q6H PRN PO .PAIN 1-3 OR TEMP; Start 09/23/18 at 23:30 Acetaminophen (Tylenol Supp) 650 mg Q6H PRN IN .PAIN 1-3 OR TEMP; Start 09/23/18 at 23:30 Morphine Sulfate (morphine) 2 mg Q4H PRN IV .SEVERE PAIN 7-10 Last administered on 09/27/18 06:36; Admin Dose 2 MG; Start 09/23/18 at 23:30 Ondansetron HCl (Zofran Inj) 4 mg Q4H PRN IV NAUSEA/VOMITING Last administered on 09/27/18 06:35; Admin Dose 4 MG; Start 09/24/18 at 06:00 Hydralazine HCl (Apresoline) 10 mg Q6H PRN IV ELEVATED SYSTOLIC BP Last administered on 09/26/18 01:32; Admin Dose 10 MG; Start 09/24/18 at 08:30 Metoclopramide HCl (Reglan) 5 mg Q8 PRN IV NAUSEA AND/OR VOMITING Last administered on 09/27/18 08:21; Admin Dose 5 MG; Start 09/24/18 at 13:30 Amlodipine Besylate (Norvasc) 5 mg BID PO Last administered on 09/27/18 21:55; Admin Dose 5 MG; Start 09/24/18 at 13:30 Diagnostic Test (Pha) (Accu-Chek) 1 ea 02 XX ; Start 09/25/18 at 02:00 Insulin Aspart (Novolog Insulin Pen) NOVOLOG *MILD* ALGORITHM WITH MEALS BEDTIME SC Last administered on 09/27/18 17:27; Admin Dose 3 UNIT; Start 09/24/18 at 18:00 Heparin Sodium (Porcine) (Heparin (1000 Units/ml)) 4,000 unit AFTER DIALYSIS CATHETER Last administered on 09/27/18 20:46; Admin Dose 4,000 UNIT; Start 09/24/18 at 14:00 Miscellaneous Information 1 ea NOTE XX ; Start 09/24/18 at 14:00 Glucose (Glutose) 15 gm Q15M PRN PO DECREASED GLUCOSE; Start 09/24/18 at 14:00 Glucose (Glutose) 22.5 gm Q15M PRN PO DECREASED GLUCOSE; Start 09/24/18 at 14:00 Dextrose (D50w Syringe) 25 ml Q15M PRN IV DECREASED GLUCOSE; Start 09/24/18 at 14:00 Dextrose (D50w Syringe) 50 ml Q15M PRN IV DECREASED GLUCOSE; Start 09/24/18 at 14:00 Glucagon (Glucagen) 1 mg Q15M PRN IM DECREASED GLUCOSE; Start 09/24/18 at 14:00 Glucose (Glutose) 15 gm Q15M PRN BUCCAL DECREASED GLUCOSE; Start 09/24/18 at 14:00 Benazepril HCl (Lotensin) 40 mg DAILY PO Last administered on 09/27/18 08:23; Admin Dose 40 MG; Start 09/27/18 at 09:00 Hydralazine HCl (Apresoline) 25 mg TID PO Last administered on 09/27/18 21:55; Admin Dose 25 MG; Start 09/26/18 at 13:00 Ciprofloxacin (Cipro) 500 mg Q24H PO Last administered on 09/27/18 23:32; Admin Dose 500 MG; Start 09/26/18 at 23:00 Metronidazole (Flagyl) 500 mg TID PO Last administered on 09/27/18 21:54; Admin Dose 500 MG; Start 09/26/18 at 21:00 Docusate Sodium (Colace) 100 mg BID PRN PO CONSTIPATION Last administered on 09/27/18 15:22; Admin Dose 100 MG; Start 09/26/18 at 21:00 Polyethylene Glycol (Miralax) 17 gm DAILY PRN PO CONSTIPATION Last administered on 09/26/18 21:04; Admin Dose 17 GM; Start 09/26/18 at 21:00 Bisacodyl (Dulcolax Supp) 10 mg DAILY PRN IN CONSTIPATION Last administered on 09/28/18 05:59; Admin Dose 10 MG; Start 09/26/18 at 21:00 Pantoprazole (Protonix Tab) 40 mg BID@0600,1800 PO Last administered on 09/28/18 05:59; Admin Dose 40 MG; Start 09/27/18 at 18:00 Ferric Sodium Gluconate Complex 125 mg/Sodium Chloride 100 ml @ 100 mls/hr DAILY@1300 IVPB Last administered on 09/27/18 13:03; Admin Dose 100 MLS/HR; Start 09/27/18 at 13:00; Stop 09/29/18 at 13:59 Ergocalciferol (Drisdol) 50,000 unit Sa@09 PO ; Start 09/28/18 at 09:00 Calcium Carbonate (Tums) 500 mg BID PO Last administered on 09/27/18at 21:54; Admin Dose 500 MG; Start 09/27/18 at 10:30 Metoclopramide HCl (Reglan) 5 mg Q6 IV Last administered on 09/28/18at 05:59; Admin Dose 5 MG; Start 09/27/18 at 18:00 Erythromycin (Erythromycin) 250 mg Q8 PO Last administered on 09/28/18at 05:59; Admin Dose 250 MG; Start 09/27/18 at 22:00 Labetalol HCl (Normodyne) 100 mg BID PO ; Start 09/28/18 at 10:00 JASKARAN KEMP MD September 28, 2018 10:05
[2018-09-28] MEDS: CALCIUM CARBONATE 500 MG CHEW TAB PO SCH (10:29)
[2018-09-28] MEDS: BENAZEPRIL 20 MG TAB PO SCH (10:29)
[2018-09-28] MEDS: metroNIDAZOLE 500 MG TAB PO SCH (10:29)
[2018-09-28] MEDS: AMLODIPINE 5 MG TAB PO SCH (10:30)
== END 2018-09-28 13:30 | disposition home or self-care (01) | DRG 391 ==
LOC: E/R 21:29 → 2NE 23:18
PROVIDERS: ADMIT Internal Medicine Nephrology; ATTEND Internal Medicine Nephrology
PROC: 5A1D70Z Performance of Urinary Filtration, Intermittent, Less than 6 Hours Per Day (ICD-10-PCS; 2018-09-25)
PROC: 0DB68ZX Excision of Stomach, Via Natural or Artificial Opening Endoscopic, Diagnostic (ICD-10-PCS; principal; 2018-09-26 13:00)
DX: K29.00 Acute gastritis without bleeding (principal); N18.6 End stage renal disease; I12.0 Hypertensive chronic kidney disease with stage 5 chronic kidney disease or end stage renal disease; E87.1 Hypo-osmolality and hyponatremia; K31.84 Gastroparesis; E11.22 Type 2 diabetes mellitus with diabetic chronic kidney disease; E11.43 Type 2 diabetes mellitus with diabetic autonomic (poly)neuropathy; E78.5 Hyperlipidemia, unspecified; D63.1 Anemia in chronic kidney disease; E55.9 Vitamin D deficiency, unspecified; E83.51 Hypocalcemia; K31.819 Angiodysplasia of stomach and duodenum without bleeding; Z99.2 Dependence on renal dialysis; Z89.411 Acquired absence of right great toe
CPT/HCPCS: 71045; 74176; 80048; 80053; 82330; 82652; 82962; 83036; 83540; 83605; 83690; 83735; 83970; 84100; 84484; 85025; 86706; 87045; 87081; 87177; 87340; 88305; 90935; 93005; 93922; 93970; C9113; J0360; J0744; J1644; J1815; J2270; J2405; J2543; J2765; J2916; J3010; J7042

== ENCOUNTER 2018-10-12 15:44 | Inpatient (IN) | payer OTHER ==
[~2018-10-12] VITALS: Ht 167.6 cm; Wt 76.1 kg
[~2018-10-12 15:44] MED LIST changes: +AMLO-145 PO; +BENA20TA4 PO; +CALC200T26 PO; +CALC667C PO; +CIPR500T4 PO; +ERGO500013 PO; +ERYT250C52 PO; +HYDR-3671 PO; -HYDR-4011 PO; +PANT40TA4 PO
[2018-10-12] MEDS ORDERED: ASPIRIN 325 MG TAB PO STA (16:16)
--- NOTE | 2018-10-12 16:26 | ERD ---
ER Documentation Chief Complaint Chief Complaint HEADACHE SINCE 0800 PM YESTERDAY , VOMIT X 1 TODAY HPI This is a 53-year-old male with a past medical history of end-stage renal disease on hemodialysis in March 2018. The patient receives dialysis every Sunday and had a full run of dialysis yesterday. His nephr ologist is Dr. Cannon. The patient indicates that after leaving his dialysis session yesterday he developed a bandlike headache. He stated his systolic blood pressure was significantly elevated greater than 200 mmHg. The patient did state he had double his doses of his antihypertensives but indicated his blood pressure would not improve. He also developed left-sided chest pain. He stated it was a pressure-like sensation but did not radiate to the neck arm back or jaw. It is intermittent. The chest pain last for roughly 10 to 20 minutes and then will resolve. He became very concerned after he had one episode of nonbloody nonbilious emesis with significant persistent elevated blood pressure and therefore he was brought to the emergency department by his mother. The patient does not make urine. He denies any shortness of breath at rest or exertion. He indicates this is not the worst headache of his life as he has had similar headaches when his blood pressure is elevated. ROS All systems reviewed and are negative except as per history of present illness. Medications Home Meds Reported Medications Pantoprazole* (Protonix*) 40 Mg Tablet.dr, 40 MG PO DAILY, TAB 10/12/18 Calcium Acetate* (Calcium Acetate*) 667 Mg Capsule, 1334 MG PO WITH MEALS, #60 CAP 10/12/18 Hydralazine Hcl* (Hydralazine Hcl*) 25 Mg Tab, 25 MG PO TID, #120 TAB 10/12/18 Benazepril Hcl* (Benazepril Hcl*) 40 Mg Tablet, 40 MG PO DAILY, #30 TAB 10/12/18 Discontinued Reported Medications Calcium Acetate* (Calcium Acetate*) 667 Mg Capsule, 1334 MG PO WITH MEALS, #60 CAP 09/24/18 Discontinued Scripts Ergocalciferol (Vitamin D2) (VITAMIN D2) 50,000 Unit Capsule, 41695 UNIT PO Sa@09 for 90 Days, CAP Prov:DANDY MORRIS 09/28/18 Pantoprazole* (Pantoprazole*) 40 Mg Tablet.dr, 40 MG PO BID@0600,1800 for 28 Days Prov:DANDY MORRIS 09/28/18 Calcium Carbonate (CALCIUM CARBONATE) 200 Mg Tab.chew, 500 MG PO BID for 30 Days, TAB.CHEW Prov:DANDY MORRIS 09/28/18 Hydralazine Hcl* (Hydralazine Hcl*) 25 Mg Tab, 25 MG PO TID for 30 Days, TAB Prov:DANDY MORRIS 09/28/18 Benazepril Hcl* (Benazepril Hcl*) 20 Mg Tablet, 40 MG PO DAILY for 30 Days, TAB Prov:DANDY MORRIS 09/28/18 Amlodipine Besylate* (Amlodipine Besylate*) 5 Mg Tablet, 5 MG PO BID for 30 Days, TAB Prov:DANDY MORRIS 09/28/18 Ciprofloxacin Hcl* (Ciprofloxacin Hcl*) 500 Mg Tablet, 500 MG PO Q24H for 10 Days, TAB Prov:DANDY MORRIS 09/28/18 Erythromycin* (Erythromycin* EC) 250 Mg Capsule.dr, 250 MG PO Q8 for 10 Days Prov:DANDY MORRIS 09/28/18 Ondansetron (Ondansetron Odt) 4 Mg Tab.rapdis, 4 MG PO Q6H PRN for NAUSEA AND/OR VOMITING, #10 TAB Prov:DANDY MORRIS 09/28/18 Allergies Allergies: Coded Allergies: No Known Drug Allergies (Verified Allergy, Unknown, 10/12/18) PMhx/Soc History of Surgery: Yes (RIGHT BIG TOE AMPUTATION 2016) Anesthesia Reaction: No Hx Neurological Disorder: No Hx Respiratory Disorders: No Hx Cardiac Disorders: Yes (HTN) Hx Psychiatric Problems: No Hx Miscellaneous Medical Probl: No Hx Alcohol Use: No Hx Substance Use: No Hx Tobacco Use: No Physical Exam Vitals Vital Signs Date Temp Pulse Resp B/P (MAP) Pulse Ox O2 O2 Flow FiO2 Time Delivery Rate 10/12/18 80 16 148/75 98 Room Air 17:48 (99) 10/12/18 72 14 184/96 98 Room Air 16:07 (125) 10/12/18 98.1 78 18 186/96 98 15:52 (126) Physical Exam Constitutional:Well-developed. Well-nourished. HEENT:Normocephalic. Atraumatic.Pupils were equal round reactive to light. Moist mucous membranes.No tonsillar exudates. Funduscopy exam shows sharp optic disks and venous pulsations are present. Neck: No nuchal rigidity. No lymphadenopathy. No posterior cervical spine t enderness or step-offs. Respiratory: Not using accessory muscles of respiration.Lungs were clear to auscultation bilaterally. No rhonchi. No rales. No wheezing. Cardiovascular: Regular rate regular rhythm.No murmurs. No rubs were appreciated.S1, S2 normal. Distal pulses are palpable 2+ bilaterally. Right tunneled chest wall catheter in place with no surrounding erythema warmth tenderness fluctuance or induration. GI: Abdomen was soft. Nontender. Non Distended. No pulsatile abdominal masses or bruits. No rebound. No guarding. Bowel sounds were present and normal. Muscle skeletal: Full range of motion of both the upper and lower extremities bilaterally.Normal muscle tone.No assymetrical calf tenderness or swelling. Skin: No petechia, no purpura. No lesions on the palms or the soles of the feet. No maculopapular rash. NEURO: Patient was alert, awake, orientated x3.No facial droop. Gait observed and normal with no ataxia.Speech had regular rate and rhythm. No focal neurological deficits. Result Diagram: 10/12/18 1623 10/12/18 1623 Results 24 hrs Laboratory Tests Test 10/12/18 16:23 White Blood Count 5.5 10^3/ul Red Blood Count 3.94 10^6/ul Hemoglobin 10.4 g/dl Hematocrit 32.7 % Mean Corpuscular Volume 83.0 fl Mean Corpuscular Hemoglobin 26.4 pg Mean Corpuscular Hemoglobin Concent 31.8 g/dl Red Cell Distribution Width 16.0 % Platelet Count 202 10^3/UL Mean Platelet Volume 8.5 fl Immature Granulocytes % 0.600 % Neutrophils % 64.7 % Lymphocytes % 16.3 % Monocytes % 13.2 % Eosinophils % 4.6 % Basophils % 0.6 % Nucleated Red Blood Cells % 0.0 /100WBC Immature Granulocytes # 0.030 10^3/ul Neutrophils # 3.5 10^3/ul Lymphocytes # 0.9 10^3/ul Monocytes # 0.7 10^3/ul Eosinophils # 0.3 10^3/ul Basophils # 0.0 10^3/ul Nucleated Red Blood Cells # 0.0 10^3/ul Prothrombin Time 12.6 Sec Prothrombin Time Ratio 1.0 INR International Normalized Ratio 0.93 Activated Partial Thromboplast Time 32.0 Sec Sodium Level 131 mmol/L Potassium Level 4.0 mmol/L Chloride Level 95 mmol/L Carbon Dioxide Level 25 mmol/L Anion Gap 11 Blood Urea Nitrogen 37 mg/dl Creatinine 7.14 mg/dl Est Glomerular Filtrat Rate mL/min 8 mL/min Glucose Level 160 mg/dl Calcium Level 8.7 mg/dl Total Bilirubin 0.4 mg/dl Direct Bilirubin 0.00 mg/dl Indirect Bilirubin 0.4 mg/dl Aspartate Amino Transf (AST/SGOT) 20 IU/L Alanine Aminotransferase (ALT/SGPT) 20 IU/L Alkaline Phosphatase 81 IU/L Creatine Kinase 102 IU/L Creatine Kinase Index 2.0 Creatinine Kinase MB (Mass) 2.04 ng/ml Troponin I 0.013 ng/ml B-Type Natriuretic Peptide 036750 PG/ML Total Protein 7.4 g/dl Albumin 4.0 g/dl Globulin 3.40 g/dl Albumin/Globulin Ratio 1.17 Current Medications Medications Dose Sig/Mikey Start Time Status Last (Trade) Ordered Route PRN Stop Time Admin Dose Reason Admin Aspirin 325 mg ONCE STAT 10/12/18 DC 10/12/18 (Aspirin) PO 16:16 10/12/18 16:36 16:18 Nicardipine 30 mg ONCE ONCE 10/12/18 DC 10/12/18 HCl PO 16:30 10/12/18 16:37 (Cardene) 16:31 Ondansetron 4 mg ER BRIDGE 10/12/18 HCl (Zofran PRN IV 17:00 10/13/18 Inj) NAUSEA/VOMITI 16:59 NG 650 mg ER BRIDGE 10/12/18 Acetaminophen PRN PO 17:00 10/13/18 (Tylenol .MILD PAIN 16:59 Tab) 1-3 OR TEMP Hydralazine 5 mg ONCE ONCE 10/12/18 DC HCl IV 17:00 10/12/18 (Apresoline) 17:01 Labetalol 10 mg ONCE ONCE 10/12/18 DC HCl IV 18:00 10/12/18 (Labetalol) 18:01 Procedures/MDM This patient presented to the emergency department with severely elevated blood pressure. My differential diagnosis included but was not limited to conditions that could end-organ damage such as acute coronary syndrome, acute pulmonary edema, aortic dissection, subarachnoid hemorrhage, intracerebral hemorrhage, cerebral infarction, withdrawal syndromes from beta blockers, or states of catecholamine excess such as pheochromocytoma or drug intoxication. The patient had uncontrolled hypertensive with end-organ damage to suggest hypertensive emergency. The treatment goal was immediate reduction of the mean arterial blood pressure. This was done in a controlled, graded manor, using improvement of the patient's condition as a guide. The patient's blood pressure reduction did not exceed more then a 20-25 percent reduction within the first 30 to 60 minutes. The patient was put on a potline monitor, continuous pulse oximetry, and IV access was established by nursing staff. The antihypertensive agent used was Cardene, hydralazine and labetalol I obtained a CT scan the patient's head which showed no intracerebral hemorrhage mass-effect or midline shift. The patient had a CT scan of his head which showed no intracerebral hemorrhage mass-effect or midline shift. The patient's BUN/creatinine were elevated however did not require emergent hemodialysis. The patient's potassium was within normal limits. The patient's BNP was elevated however this was thought to be secondary to his known renal failure on dialysis. 12 Lead EKG tracing ordered and reviewed by myself showed: Normal sinus rhythm of 78 bpm and no arrhythmia. MA interval normal. QRS duration normal. No ST segment elevation No ST segment depression. No changes consistent with acute ischemia. The patient will be admitted to the primary care physician Dr. Cannon in serious condition. He will go to the telemetry service. Critical Care: Time: 60 minutes Treatments/Evaluations: Close monitoring and treatment of unstable vital signs, cardiorespiratory, and neurologic status, while maintaining tight balance of fluid, respiratory, and cardiac interventions. Time does not include performing any of the above billable procedures. Departure Diagnosis: Primary Impression: Hypertensive urgency Additional Impression: Chest pain Chest pain type: unspecified Qualified Codes: R07.9 - Chest pain, unspecified Condition: Serious JOSE ALBERTO DEVI MD Oct 12, 2018 16:26
[2018-10-12] MEDS ORDERED: NICARDipine HCL 30 MG CAPSULE PO ONE (16:30)
[2018-10-12] MEDS ORDERED: BENA40TA56 PO (16:32)
[2018-10-12] MEDS ORDERED: HYDR-3671 PO (16:33)
[2018-10-12] MEDS ORDERED: CALC667C PO (16:34)
[2018-10-12] MEDS ORDERED: PANT40TA3 PO (16:34)
[2018-10-12] MEDS ORDERED: ACETAMINOPHEN 325 MG TAB PO PRN (17:00)
[2018-10-12] MEDS ORDERED: ONDANSETRON 4 MG INJ IV PRN (17:00)
[2018-10-12] MEDS ORDERED: hydrALAzine 20 MG INJ IV ONE (17:00)
[2018-10-12] MEDS ORDERED: LABETALOL HCL 20MG INJ IV ONE (18:00)
[2018-10-12 20:45] VITALS: BP 175/85; PULSE 76; RESP 18
[2018-10-12] MEDS ORDERED: ERGO500013 PO (21:10)
[2018-10-12 21:30] VITALS: PULSE 79
[2018-10-12 21:31] VITALS: Ht 167.6 cm; Wt 76.1 kg
[2018-10-12] MEDS ORDERED: GLUCAGON 1 MG INJ IM PRN (22:00)
[2018-10-12] MEDS ORDERED: DEXTROSE 50% 50 ML SYRINGE IV PRN ×2 (22:00)
[2018-10-12] MEDS ORDERED: GLUCOSE GEL 15 GRAM TUBE BUCCAL PRN (22:00)
[2018-10-12] MEDS ORDERED: GLUCOSE GEL 15 GRAM TUBE PO PRN ×2 (22:00)
[2018-10-12] MEDS ORDERED: traMADol 50 MG TAB PO PRN (22:00)
[2018-10-12] MEDS: ACETAMINOPHEN 325 MG TAB PO PRN (22:30)
[2018-10-13] VITALS (30 sets, daily range): BP systolic 99–180; BP diastolic 62–99; PULSE 53–107; RESP 16–18
[2018-10-13] MEDS: ACCU-CHEK XX SCH (01:56)
[2018-10-13] MEDS: HYDROCODONE/APAP (5/325) TAB PO PRN (02:37)
[2018-10-13] MEDS: ALPRAZOLAM 0.25 MG TAB PO PRN (02:37)
[2018-10-13] MEDS: INSULIN ASPART [NOVOLOG] 3 ML PEN SC SCH ×4 (07:58→20:44)
[2018-10-13] MEDS: BISACODYL (EC) 5 MG TAB PO SCH ×2 (08:57→20:47)
[2018-10-13] MEDS: BENAZEPRIL 40 MG TAB PO SCH (08:58)
[2018-10-13] MEDS: CALCIUM ACETATE 667 MG CAP PO SCH ×3 (08:58→17:19)
[2018-10-13] MEDS ORDERED: ERGOCALCIFEROL 50,000 UNIT CAP PO SCH (09:00)
[2018-10-13] MEDS ORDERED: PANTOPRAZOLE (EC) 40 MG TAB PO SCH (09:00)
[2018-10-13] MEDS: POLYETHYLENE GLYCOL 17 GM PACKET PO SCH (09:07)
--- NOTE | 2018-10-13 11:07 | HP ---
Date/Time of Note Date/Time of Note DATE: 10/13/18 TIME: 11:06 Assessment/Plan VTE Prophylaxis Risk score (from Ns)>0 risk: 1 SCD applied (from [facility] [place]): No SCD contraindicated: low risk/ambulating Pharmacological prophylaxis: heparin Lines/Catheters IV Catheter Type (from [facility]): [place] Assessment/Plan Hospital Course 1. Hypertensive emergency. BP is still elevated 2. ESRD on HD, MWFr via right chest Permcath 3. Chest pain, trop. and cardiac enzymes are negative. More likely related to hypertension 4. Anemia chronic disease 5. Bradycardia, new 6. Hx of vit D deficiency 7. Hyponatremia 8. Prediabetic, last Hg A1 C 5.7 9. s.p great toe amputation 10. Constipation, S.p recent colitis 11. Overweight Assessment/Plan -telemetry monitoring -DVT proph. heparin 500 mg po BID -GI proph. Protonix -constipation relief -trop. are negative -dr Elias is cardiology consult Result Diagram: 10/13/1844610/13/18446 Results 24hrs Laboratory Tests Test 10/12/18 16:23 10/12/18 21:16 10/12/18 22:21 10/13/18 04:47 White Blood Count 5.5 5.3 Red Blood Count 3.94 L 3.52 L Hemoglobin 10.4 L 9.3 L Hematocrit 32.7 L 29.2 L Mean Corpuscular Volume 83.0 83.0 Mean Corpuscular 26.4 L 26.4 L Hemoglobin Mean Corpuscular 31.8 L 31.8 L Hemoglobin Concent Red Cell Distribution 16.0 H 15.9 H Width Platelet Count 202 194 Mean Platelet Volume 8.5 8.7 Immature Granulocytes % 0.600 H 0.600 H Neutrophils % 64.7 62.8 Lymphocytes % 16.3 18.5 Monocytes % 13.2 H 13.5 H Eosinophils % 4.6 3.9 Basophils % 0.6 0.7 Nucleated Red Blood 0.0 0.0 Cells % Immature Granulocytes # 0.030 0.030 Neutrophils # 3.5 3.4 Lymphocytes # 0.9 1.0 Monocytes # 0.7 0.7 Eosinophils # 0.3 0.2 Basophils # 0.0 0.0 Nucleated Red Blood 0.0 0.0 Cells # Prothrombin Time 12.6 Prothrombin Time Ratio 1.0 INR International 0.93 Normalized Ratio Activated 32.0 Partial Thromboplast Time Sodium Level 131 L 131 L Potassium Level 4.0 3.6 Chloride Level 95 L 94 L Carbon Dioxide Level 25 24 Anion Gap 11 13 Blood Urea Nitrogen 37 H 44 H Creatinine 7.14 H 8.09 H Est Glomerular Filtrat 8 L 7 L Rate mL/min Glucose Level 160 120 # Calcium Level 8.7 8.5 Total Bilirubin 0.4 0.3 Direct Bilirubin 0.00 0.00 Indirect Bilirubin 0.4 0.3 Aspartate Amino 20 16 Transf (AST/SGOT) Alanine 20 18 Aminotransferase (ALT/SG PT) Alkaline Phosphatase 81 62 Creatine Kinase 102 109 95 Creatine Kinase Index 2.0 1.8 1.7 Creatinine Kinase MB 2.04 1.99 1.63 (Mass) Troponin I 0.013 0.027 0.031 B-Type Natriuretic 496006 H Peptide Total Protein 7.4 6.3 # Albumin 4.0 3.4 Globulin 3.40 H 2.90 Albumin/Globulin Ratio 1.17 1.17 Bedside Glucose 115 Test 10/13/18 07:41 Bedside Glucose 123 HPI/ROS Admit Date/Time Admit Date/Time Oct 12, 2018 at 16:48 Hx of Present Illness This is a 53-year-old male with a past medical history of end-stage renal disease on hemodialysis in March 2018. The patient receives dialysis every Sunday and had a full run of dialysis 10/11/2018 for 3.5 h. He said during the HD machine alarmed sometimes. He was recently in hospital September 23, 2018 with colitis, now report constipation for 2 days. The patient indicates that after leaving his dialysis session on 10/11/2018 he developed a severe headache. He stated that his systolic blood pressure was significantly elevated greater than 200 mmHg. He used double doses of antihypertensive meds, but not e ffectively. Additionally pt had a pressure like chest pain. Pt denied any stimulants: coffee, alcohol, or drugs. PAST SURGICAL HISTORY: The patient had a right foot great toe amputation. The patient had a right PermCath placement. ROS Constitutional: no complaints Respiratory: no complaints, pain, cough, pleuritic pain, shortness of breath, sputum, wheezing, other (would be benefitted from supplemental oxygen) Cardiovascular: no complaints, chest pain (yesterday, not now), edema, lightheadedness, orthopenea, palpitations, paroxysmal nocturnal dyspnea, other Genitourinary: dysuria, other (anuric); No no complaints, No bleeding, No discharge, No flank pain, No hematuria Neurologic: no complaints PMH/Family/Social Past Medical History Medical History: colitis, diabetes, hypertension Medications Current Medications Benazepril HCl (Lotensin) 40 mg DAILY PO Last administered on 10/13/18 08:58; Admin Dose 40 MG; Start 10/13/18 at 09:00 Calcium Acetate (Phoslo) 1,334 mg WITH MEALS PO Last administered on 10/13/18 08:58; Admin Dose 1,334 MG; Start 10/13/18 at 08:00 Hydralazine HCl (Apresoline) 50 mg TID PO Last administered on 10/13/18 08:58; Admin Dose 50 MG; Start 10/12/18 at 22:00 Pantoprazole (Protonix Tab) 40 mg DAILY PO Last administered on 10/13/18 08:58; Admin Dose 40 MG; Start 10/13/18 at 09:00 Acetaminophen (Tylenol Tab) 650 mg Q6H PRN PO MILD PAIN(1-3)OR ELEVATED TEMP Last administered on 10/12/18 22:30; Admin Dose 650 MG; Start 10/12/18 at 22:00 Clonidine (Catapres) 0.1 mg TID PO Last administered on 10/13/18 08:59; Admin Dose 0.1 MG; Start 10/12/18 at 22:00 Clonidine (Catapres) 0.1 mg Q6H PRN PO systolic BP > 170; Start 10/12/18 at 22:00 Tramadol HCl (Ultram) 50 mg Q6H PRN PO MODERATE PAIN LEVEL 4-6 Last administered on 10/13/18 00:47; Admin Dose 50 MG; Start 10/12/18 at 22:00 Polyethylene Glycol (Miralax) 17 gm DAILY PO Last administered on 10/13/18 09:07; Admin Dose 17 GM; Start 10/13/18 at 09:00 Bisacodyl (Dulcolax) 5 mg BID PO Last administered on 10/13/18 08:57; Admin Dose 5 MG; Start 10/13/18 at 09:00 Diagnostic Test (Pha) (Accu-Chek) 1 ea 02 XX ; Start 10/13/18 at 02:00 Insulin Aspart (Novolog Insulin Pen) NOVOLOG *MILD* ALGORITHM WITH MEALS BEDTIME SC ; Start 10/13/18 at 08:00 Miscellaneous Information 1 ea NOTE XX ; Start 10/12/18 at 22:00 Glucose (Glutose) 15 gm Q15M PRN PO DECREASED GLUCOSE; Start 10/12/18 at 22:00 Glucose (Glutose) 22.5 gm Q15M PRN PO DECREASED GLUCOSE; Start 10/12/18 at 22:00 Dextrose (D50w Syringe) 25 ml Q15M PRN IV DECREASED GLUCOSE; Start 10/12/18 at 22:00 Dextrose (D50w Syringe) 50 ml Q15M PRN IV DECREASED GLUCOSE; Start 10/12/18 at 22:00 Glucagon (Glucagen) 1 mg Q15M PRN IM DECREASED GLUCOSE; Start 10/12/18 at 22:00 Glucose (Glutose) 15 gm Q15M PRN BUCCAL DECREASED GLUCOSE; Start 10/12/18 at 22:00 Ergocalciferol (Drisdol) 50,000 unit [place]@09 PO Last administered on 10/13/18at 08:58; Admin Dose 50,000 UNIT; Start 10/13/18 at 09:00 Acetaminophen/ Hydrocodone Bitart ([place] (5/325)) 1 tab Q6H PRN PO MODERATE PAIN LEVEL 4-6 Last administered on 10/13/18at 02:37; Admin Dose 1 TAB; Start 10/13/18 at 02:30 Alprazolam (Xanax) 0.25 mg DAILY PRN PO ANXIETY Last administered on 10/13/18at 02:37; Admin Dose 0.25 MG; Start 10/13/18 at 02:30 Coded Allergies: No Known Drug Allergies (Verified Allergy, Unknown, 10/12/18) Past Surgical History Past Surgical Hx: other (Perm cath and righ great toe aamputation) Family History Significant Family History: renal disease (father) Social History Alcohol Use: none Smoking Status: Never smoker Drug Use: none Exam/Review of Systems Vital Signs Vitals Vital Signs Date Temp Pulse Resp B/P (MAP) Pulse Ox O2 O2 Flow FiO2 Time Delivery Rate 10/13/18 66 08:00 10/13/18 97.9 18 162/85 96 07:12 (110) 10/13/18 Room Air 04:00 Exam Exam right chest Permcath Constitutional: alert, oriented Neck: supple Respiratory: clear to auscultation Cardiovascular: regular rate and rhythm, other (60 all the time) Gastrointestinal: soft Extremities: edema; No normal pulses, No calf tenderness, No cyanosis, No clubbing, No pitting pedal edema, No palpable cord, No tenderness, No other DANDY MORRIS Oct 13, 2018 11:07
[2018-10-13] MEDS ORDERED: LACTULOSE 30ML CUP PO PRN (12:00)
[2018-10-13] MEDS: HEPARIN 5,000 UNIT/1 ML VIAL SC SCH ×2 (12:37→20:55)
[2018-10-13] MEDS ORDERED: hydrALAzine 20 MG INJ IV PRN (14:00)
[2018-10-13] MEDS ORDERED: HEPARIN 1000 UNITS/ML 10 ML INJ CATHETER SCH (14:30)
--- NOTE | 2018-10-13 15:27 | RADRPT ---
Echocardiogram Report Patient Name: YONY HERNANDEZPatient ID: [id number] : 1965 (53y 3m)Study Date: 10/13/2018 1:45:47 PM Gender: MAccession #: [id number] Tech: DINORA Location: [facility] Ref.Physician: DANDY MORRIS Height(Cm): 168 BSA: 1.88Weight(Kg): 75.8 Quality: AdequateOrder Physician: DANDY MORRIS Account #: Procedures: Echocardiographic Report: Transthoracic echocardiogram with complete 2D, M-Mode, and doppler examination. Indications: Bradycardia. Measurements: 2D/M Mode Doppler Measurement Value Normal Range Measurement Value Normal Range LVIDd 2D 5.1 [ 4.2 - 5.8 ] cm AV Peak Marcos 1.3 [ 100.0 - 170.0 ] cm/sec LVIDs 2D 3.9 [ 2.5 - 4.0 ] cm AV Peak PG 7.0 [ 2.0 - 9.0 ] mmHg LVPWd 2D 1.2 [ 0.6 - 1.0 ] cm LVOT Peak Marcos 0.7 [ 70.0 - 110.0 ] cm/sec IVSd 2D 1.2 [ 0.6 - 1.0 ] cm LVOT Peak PG 2.0 [ 2.0 - 6.0 ] mmHg AoR Diam 2D 3.7 [ 2.6 - 3.4 ] cm MV E Peak Marcos 1.1 [ 60.0 - 130.0 ] cm/sec LA Dimen 2D 4.9 [ 3.0 - 4.0 ] cm MV A Peak Marcos 0.6 [ 100.0 - 120.0 ] cm/sec MV E/A 1.8 [ 0.8 - 1.5 ] ratio MV PHT 50.0 [ 20.0 - 100.0 ] msec MV Decel Time 169 [ 104 - 258 ] msec MV Decel [place] 7 Lat E` Marcos 0.1 [ 10.0 - 15.0 ] cm/sec Lateral E/E` 18.4 [ 1.0 - 2.0 ] ratio Med E` Marcos 0.0 cm/sec MV E/A 1.8 [ 0.8 - 1.5 ] ratio MVA PHT 4.4 [ 2.0 - 4.0 ] cm2 TR Peak Marcos 2.4 [ 100.0 - 280.0 ] cm/sec TR Peak PG 23.0 mmHg PV Peak Marcos 0.9 [ 40.0 - 80.0 ] cm/sec PV Peak PG 3.0 mmHg RVSP 26.0 [ 10.0 - 36.0 ] mmHg RA Pressure 3.0 mmHg Findings: Left Ventricle: Normal left ventricular cavity size. Mild concentric left ventricular hypertrophy. Mild left ventricular systolic dysfunction. Ejection fraction is visually estimated at 40-45 %. Abnormal Diastolic Function. E/E'= 18. Right Ventricle: Normal right ventricular size. Normal right ventricular systolic function. Left Atrium: There is mild enlargement of left atrium. Right Atrium: There is mild enlargement of right atrium. Atrial Septum: Normal atrial septum. Mitral Valve: Normal appearance of the mitral valve. Mild mitral valve regurgitation. Aortic Valve: No significant aortic stenosis or insufficiency. Normal trileaflet aortic valve structure. Tricuspid Valve: Normal appearance of the tricuspid valve. The estimated Peak RVSP is 26 mmHg. There is trace to mild tricuspid regurgitation. Pulmonic Valve: Normal pulmonic valve appearance. No evidence of pulmonic regurgitation. Pericardium: Normal pericardium with no significant pericardial effusion. Aorta: Sinus of valsalva is mildly dilated. Sinus of valsalva 3.70 cm. Ascending aorta is normal. IVC: Normal size and normal respiratory collapse consistent with normal right atrial pressure. Pulmonary Artery: Normal pulmonary artery size. Conclusions: Normal left ventricular cavity size. Mild concentric left ventricular hypertrophy. Mild left ventricular systolic dysfunction. Ejection fraction is visually estimated at 40-45 %. Abnormal Diastolic Function. E/E'= 18. There is mild enlargement of left atrium. There is mild enlargement of right atrium. Normal appearance of the mitral valve. Mild mitral valve regurgitation. n. Normal appearance of the tricuspid valve. The estimated Peak RVSP is 26 mmHg. There is trace to mild tricuspid regurgitation. Electronically Signed By: Laron Elias 2018-10-13 15:27:21 PDT
--- NOTE | 2018-10-13 16:40 | CONS ---
DATE OF ADMISSION: 10/12/2018 DATE OF CONSULTATION: 10/13/2018 TYPE OF CONSULTATION: Cardiology. REASON FOR CONSULTATION: Hypertensive emergency as well as chest pain and abnormal electrocardiogram , assess for acute coronary syndrome. REQUESTING PHYSICIAN: Ralph Peña MD HISTORY OF PRESENT ILLNESS: Mr. Hartmann is a very pleasant 53-year-old ____ male with history of end- stage renal disease, recently started on hemodialysis per patient in the last 5 to 6 months, hyperten caty with labile blood pressures recently, anemia, constipation, who presented with uncontrolled syst olic blood pressures and associated headache and episodes of substernal chest pain somewhat poorly de scribed occurring at rest and with exertion. Today, he describes a pressure-like sensation without r adiation. Upon arrival in the emergency department, temperature was 98.1, blood pressure was elevate d at 186/96, pulse 78, respiratory rate 18, satting 98%. The patient's labs are notable for a white blood cell count of 5.5, BUN 10.4, platelet count of 202, sodium of 131, potassium 4.0, creatinine 7. 1, BUN 37, BNP of 116,000. Troponin negative. CK-MB negative. INR 0.93. The patient's imaging farzaneh dies were notable for chest x-ray with cardiomegaly but no pneumonia or failure, a head CT given head ache that revealed no evidence of acute intracranial pathology. The patient underwent electrocardiog stuart revealed sinus rhythm at 78, normal axis, normal intervals with nonspecific ST-T wave abnormaliti es. The patient subsequently has been admitted to the floor and since admit to the floor, continues to have elevated systolic blood pressure most recently down to 139. The patient was monitored on tel emetry revealing heart rates mainly in the 60s and down to 50s at times. The patient continues to archuleta ve intermittent chest pain. PAST MEDICAL HISTORY: As above in HPI. MEDICATIONS CURRENTLY IN HOSPITAL: 1. Protonix 40 mg daily. 2. Lactulose 20 grams q.8 p.r.n. 3. Heparin 5000 subcutaneously b.i.d. 4. Benazepril 40 mg daily. 5. Dulcolax. 6. Calcium acetate. 7. Insulin. 8. Xanax. 9. Hydralazine 50 mg p.o. t.i.d. 10. Clonidine 0.1 mg p.o. t.i.d. 11. Tramadol. ALLERGIES: NO KNOWN DRUG ALLERGIES. SOCIAL HISTORY: No tobacco, EtOH or illicit drugs. FAMILY HISTORY: No history of sudden cardiac or early CAD. REVIEW OF SYSTEMS: As above in HPI. CONSTITUTIONAL: No fevers, chills. PULMONARY: No current shortness of breath. CARDIOVASCULAR: Intermittent chest pain. GASTROINTESTINAL: No vomiting. GENITOURINARY: Renal failure on hemodialysis. PSYCHIATRIC: No documented psych history. NEUROLOGIC: No documented history of CVA, but headaches. PHYSICAL EXAMINATION: VITAL SIGNS: Temperature 98.3, blood pressure 139/70, pulse 56, sinus jolie, respiratory rate 18, sa tting 98%. GENERAL: The patient is alert, awake, in no acute distress. NECK: JVP is approximately 9 cm of water. CHEST: Fair air movement throughout. HEART: Bradycardic, regular rhythm, normal S1, S2, I/ systolic murmur, nondisplaced PMI. ABDOMEN: Positive bowel sounds, soft. EXTREMITIES: No edema, 1+ pulses bilateral posterior tibial pulse. LABORATORIES: Most recently from today: Sodium 131, potassium 3.6, creatinine 8.0, BUN of 44. Trop onin negative times total of 3. BNP 116,000. White blood cell count 5.3, hemoglobin 9.3, platelet c ount of 194. IMAGING STUDIES: As above in HPI. No further imaging for my review at this time. ELECTROCARDIOGRAM: As in HPI. No further electrocardiograms for my review at this time. IMPRESSION: 1. Chest pain, assess for acute coronary syndrome, somewhat poorly described at this time, possibly in the setting of hypertensive urgency and emergency, rule out acute coronary syndrome. 2. Abnormal electrocardiogram with diffuse nonspecific ST-T wave abnormalities to assess acute coron genet syndrome. 3. Hypertension, labile, slowly improving on oral antihypertensives. 4. History of dyslipidemia. 5. End-stage renal disease on hemodialysis. 6. Hyponatremia. 7. Constipation, possible ____ patient's elevated systolic blood pressure due to discomfort. 8. Anemia, mild worsening with increased BNP consistent with congestive heart failure. 9. Headaches. Rule out cerebrovascular accident. RECOMMENDATIONS: 1. At this time, we would maintain the patient on telemetry monitoring to follow rhythm and rate con trol closely. 2. We would continue the patient's baseline antihypertensives at this time with benazepril, clonidin e and titrate the patient's hydralazine at this time to improve overall systolic blood pressure contr ol. 3. We will start patient on standing aspirin after receiving aspirin in the emergency department. 4. Hemodialysis for volume removal the patient is to have today. 5. Check a 2D echo to further assess the patient's ejection fraction, wall motion, rule out major va lve abnormalities. 6. We will consider possible cardiac stress test to this patient to further assess the possibility o f significant obstructive coronary artery lending to symptoms of chest pain. 7. Follow the patient's sodium closely. 8. Continue to follow the patient's blood sugars closely on insulin. 9. Follow the patient's hemoglobin on aspirin therapy. Thank you for allowing me to take part in the care of this patient. I will continue to follow him ve ry closely with you with further recommendations to be made as the patient [facility]. Dictated By: STEPHANIE WEBSTER/KAE Conf#: [id number] DID#: [id number] CC: RALPH PEÑA MD;*EndCC*
[2018-10-14] VITALS (25 sets, daily range): BP systolic 134–173; BP diastolic 70–91; PULSE 60–71; RESP 16–20
[2018-10-14] MEDS: ALPRAZOLAM 0.25 MG TAB PO PRN (00:31)
[2018-10-14] MEDS: HYDROCODONE/APAP (5/325) TAB PO PRN (00:31)
[2018-10-14] MEDS: ACCU-CHEK XX SCH (01:33)
[2018-10-14] MEDS: PANTOPRAZOLE (EC) 40 MG TAB PO SCH (05:34)
[2018-10-14] MEDS: CALCIUM ACETATE 667 MG CAP PO SCH ×3 (08:00→17:16)
[2018-10-14] MEDS: INSULIN ASPART [NOVOLOG] 3 ML PEN SC SCH ×4 (08:00→21:00)
[2018-10-14] MEDS: BISACODYL (EC) 5 MG TAB PO SCH ×2 (08:26→20:35)
[2018-10-14] MEDS: POLYETHYLENE GLYCOL 17 GM PACKET PO SCH (08:26)
[2018-10-14] MEDS: BENAZEPRIL 40 MG TAB PO SCH (08:27)
[2018-10-14] MEDS: HEPARIN 5,000 UNIT/1 ML VIAL SC SCH ×2 (08:34→20:38)
[2018-10-14] MEDS ORDERED: REGADENOSON 0.4 MG/5 ML SYG ONE (10:43)
--- NOTE | 2018-10-14 11:15 | CONS ---
Assessment/Plan Assessment/Plan Hospital Course (Demo Recall) IMPRESSION: 1. Chest pain, assess for acute coronary syndrome, somewhat poorly described at this time, possibly in the setting of hypertensive urgency and emergency, rule out acute coronary syndrome.-neg trop x 3. Mildly depresssed LVEF by echo this admit 2. Abnormal electrocardiogram with diffuse nonspecific ST-T wave abnormalities to assess acute coronary syndrome. 3. Hypertension, labile, slowly improving on oral antihypertensives. 4. History of dyslipidemia. 5. End-stage renal disease on hemodialysis. 6. Hyponatremia. 7. Constipation 8. Anemia, mild worsening with increased BNP consistent with congestive heart failure. 9. Headaches. Rule out cerebrovascular accident. 10. cardiomyopathy Recc: -Tele -Continue Benazpril/clonidine -Increase hydralazine -Not on BB given borderline bradycardia -Lexiscan stress test today Consultation Date/Type/Reason Admit Date/Time Oct 14, 2018 at 09:09 Initial Consult Date 10/14/18 Type of Consult Cardiology Reason for Consultation chest pain Requesting Provider: EDGAR PEÑA MD Date/Time of Note DATE: 10/14/18 TIME: 11:11 Exam/Review of Systems Vital Signs Vitals Vital Signs Date Temp Pulse Resp B/P (MAP) Pulse Ox O2 O2 Flow FiO2 Time Delivery Rate 10/14/18 65 08:02 10/14/18 97.6 18 167/91 96 07:20 (116) 10/14/18 Room Air 04:17 Intake and Output 10/13/18 10/13/18 10/14/18 1515:00 23:00 07:00 IntakeIntake Total 400 ml 800 ml 500 ml OutputOutput Total 2500 ml BalanceBalance 400 ml -1700 ml 500 ml Exam Exam Review of Systems: CONSTITUTIONAL: No fevers, chills. PULMONARY: No sob CARDIOVASCULAR: No current chest pain/palpitations GASTROINTESTINAL: No nausea/vomiting. GENITOURINARY: No hematuria/dysuria. MUSCULOSKELETAL: No myagias/arthalgias. PSYCHIATRIC: The patient denies depression. NEUROLOGIC: No weakness Constitutional: alert, oriented Psych: no complaints Head: normocephalic ENMT: mucosa pink and moist Neck: supple, jvd (9 cm water) Respiratory: diminished breath sounds (at bases/B) Cardiovascular: regular rate and rhythm Gastrointestinal: soft, non-tender Musculoskeletal: muscle tone (normal) Extremities: edema (none) Neurological: other (No focal deficits) Labs Result Diagram: 10/14/18 0530 10/14/18 0530 Results 24hrs Laboratory Tests Test 10/13/18 11:56 10/13/18 17:18 10/13/18 20:38 10/14/18 01:32 Bedside Glucose 201 118 222 H 187 Test 10/14/18 05:30 10/14/18 08:06 White Blood Count 4.9 Red Blood Count 3.93 L Hemoglobin 10.2 L Hematocrit 32.5 L Mean Corpuscular 82.7 Volume Mean Corpuscular 26.0 L Hemoglobin Mean Corpuscular 31.4 L Hemoglobin Concent Red Cell Distribution 16.0 H Width Platelet Count 204 Mean Platelet Volume 9.8 Immature Granulocytes 0.800 H % Neutrophils % 60.7 Lymphocytes % 19.0 Monocytes % 14.4 H Eosinophils % 4.5 Basophils % 0.6 Nucleated Red Blood 0.0 Cells % Immature Granulocytes 0.040 H # Neutrophils # 2.9 Lymphocytes # 0.9 Monocytes # 0.7 Eosinophils # 0.2 Basophils # 0.0 Nucleated Red Blood 0.0 Cells # Sodium Level 134 L Potassium Level 4.7 Chloride Level 99 Carbon Dioxide Level 27 Anion Gap 8 Blood Urea Nitrogen 32 #H Creatinine 6.45 H Est Glomerular 9 L Filtrat Rate mL/min Glucose Level 115 Calcium Level 8.6 Triglycerides Level 52 Cholesterol Level 156 LDL Cholesterol, 111 Calculated HDL Cholesterol 35 Cholesterol/HDL Ratio 4.4 Bedside Glucose 94 Medications Medications Current Medications Benazepril HCl (Lotensin) 40 mg DAILY PO Last administered on 10/14/18at 08:27; Admin Dose 40 MG; Start 10/13/18 at 09:00 Calcium Acetate (Phoslo) 1,334 mg WITH MEALS PO Last administered on 10/13/18at 12:29; Admin Dose 1,334 MG; Start 10/13/18 at 08:00 Acetaminophen (Tylenol Tab) 650 mg Q6H PRN PO MILD PAIN(1-3)OR ELEVATED TEMP Last administered on 10/12/18at 22:30; Admin Dose 650 MG; Start 10/12/18 at 22:00 Clonidine (Catapres) 0.1 mg TID PO Last administered on 10/14/18at 08:27; Admin Dose 0.1 MG; Start 10/12/18 at 22:00 Clonidine (Catapres) 0.1 mg Q6H PRN PO systolic BP > 170 Last administered on 10/14/18at 00:31; Admin Dose 0.1 MG; Start 10/12/18 at 22:00 Tramadol HCl (Ultram) 50 mg Q6H PRN PO MODERATE PAIN LEVEL 4-6 Last administered on 10/13/18at 00:47; Admin Dose 50 MG; Start 10/12/18 at 22:00 Polyethylene Glycol (Miralax) 17 gm DAILY PO Last administered on 10/14/18 08:26; Admin Dose 17 GM; Start 10/13/18 at 09:00 Bisacodyl (Dulcolax) 5 mg BID PO Last administered on 10/14/18 08:26; Admin Dose 5 MG; Start 10/13/18 at 09:00 Diagnostic Test (Pha) (Accu-Chek) 1 ea 02 XX Last administered on 10/14/18at 01:33; Admin Dose 1 EA; Start 10/13/18 at 02:00 Insulin Aspart (Novolog Insulin Pen) NOVOLOG *MILD* ALGORITHM WITH MEALS BEDTIME SC Last administered on 10/13/18at 20:44; Admin Dose 2 UNIT; Start 10/13/18 at 08:00 Miscellaneous Information 1 ea NOTE XX ; Start 10/12/18 at 22:00 Glucose (Glutose) 15 gm Q15M PRN PO DECREASED GLUCOSE; Start 10/12/18 at 22:00 Glucose (Glutose) 22.5 gm Q15M PRN PO DECREASED GLUCOSE; Start 10/12/18 at 22:00 Dextrose (D50w Syringe) 25 ml Q15M PRN IV DECREASED GLUCOSE; Start 10/12/18 at 22:00 Dextrose (D50w Syringe) 50 ml Q15M PRN IV DECREASED GLUCOSE; Start 10/12/18 at 22:00 Glucagon (Glucagen) 1 mg Q15M PRN IM DECREASED GLUCOSE; Start 10/12/18 at 22:00 Glucose (Glutose) 15 gm Q15M PRN BUCCAL DECREASED GLUCOSE; Start 10/12/18 at 22:00 Ergocalciferol (Drisdol) 50,000 unit [place]@09 PO Last administered on 10/13/18at 08:58; Admin Dose 50,000 UNIT; Start 10/13/18 at 09:00 Acetaminophen/ Hydrocodone Bitart ([place] (5/325)) 1 tab Q6H PRN PO MODERATE PAIN LEVEL 4-6 Last administered on 10/14/18 00:31; Admin Dose 1 TAB; Start 10/13/18 at 02:30 Alprazolam (Xanax) 0.25 mg DAILY PRN PO ANXIETY Last administered on 10/14/18 00:31; Admin Dose 0.25 MG; Start 10/13/18 at 02:30 Heparin Sodium (Porcine) (Heparin (5000 Units/1ml)) 5,000 unit BID SC Last administered on 10/14/18 08:34; Admin Dose 5,000 UNIT; Start 10/13/18 at 11:30 Lactulose (Enulose) 20 gm Q8 PRN PO CONSTIPATION; Start 10/13/18 at 12:00 Pantoprazole (Protonix Tab) 40 mg DAILY@06 PO Last administered on 10/14/18 05:34; Admin Dose 40 MG; Start 10/14/18 at 06:00 Hydralazine HCl (Apresoline) 75 mg Q8 PO Last administered on 10/14/18 05:35; Admin Dose 75 MG; Start 10/13/18 at 22:00 Hydralazine HCl (Apresoline) 10 mg Q4H PRN IV SBP>180; Start 10/13/18 at 14:00 Heparin Sodium (Porcine) (Heparin (1000 Units/ml)) 4,000 unit AFTER DIALYSIS CATHETER Last administered on 10/13/18at 16:53; Admin Dose 3,300 UNIT; Start 10/13/18 at 14:30 STEPHANIE HER Oct 14, 2018 11:15
[2018-10-14] MEDS ORDERED: ONDANSETRON 4 MG INJ IV PRN (12:00)
--- NOTE | 2018-10-14 12:05 | PN ---
Date/Time of Note Date/Time of Note DATE: 10/14/18 TIME: 12:03 Assessment/Plan VTE Prophylaxis Risk score (from Ns)>0 risk: 4 SCD applied (from [facility]): No SCD contraindicated: low risk/ambulating Pharmacological prophylaxis: NA/contraindicated Pharm contraindication: low risk/ambulating Lines/Catheters IV C[facility]from [facility] Saline Lock Assessment/Plan Assessment/Plan Hospital Course 1. Hypertensive emergency. BP is still elevated 2. ESRD on HD, MWFr via right chest Permcath 3. Chest pain, trop. and cardiac enzymes are negative. More likely related to hypertension 4. Anemia chronic disease 5. Bradycardia, new 6. Hx of vit D deficiency 7. Hyponatremia 8. Prediabetic, last Hg A1 C 5.7 9. s.p great toe amputation 10. Constipation, S.p recent colitis 11. Overweight Assessment/Plan -telemetry monitoring - HD MWF, HD again today - increased to 100 every 8 for blood pressure, continue with benazepril 40 and clonidine 0.1 3 times daily -Pending Lexiscan results today -DVT proph. heparin 500 mg po BID -GI proph. Protonix Result Diagram: 10/14/18 0530 10/14/18 0530 Results 24hrs Laboratory Tests Test 10/13/18 17:18 10/13/18 20:38 10/14/18 01:32 10/14/18 05:30 Bedside Glucose 118 222 H 187 White Blood Count 4.9 Red Blood Count 3.93 L Hemoglobin 10.2 L Hematocrit 32.5 L Mean Corpuscular 82.7 Volume Mean Corpuscular 26.0 L Hemoglobin Mean Corpuscular 31.4 L Hemoglobin Concent Red Cell Distribution 16.0 H Width Platelet Count 204 Mean Platelet Volume 9.8 Immature Granulocytes 0.800 H % Neutrophils % 60.7 Lymphocytes % 19.0 Monocytes % 14.4 H Eosinophils % 4.5 Basophils % 0.6 Nucleated Red Blood 0.0 Cells % Immature Granulocytes 0.040 H # Neutrophils # 2.9 Lymphocytes # 0.9 Monocytes # 0.7 Eosinophils # 0.2 Basophils # 0.0 Nucleated Red Blood 0.0 Cells # Sodium Level 134 L Potassium Level 4.7 Chloride Level 99 Carbon Dioxide Level 27 Anion Gap 8 Blood Urea Nitrogen 32 #H Creatinine 6.45 H Est Glomerular 9 L Filtrat Rate mL/min Glucose Level 115 Calcium Level 8.6 Triglycerides Level 52 Cholesterol Level 156 LDL Cholesterol, 111 Calculated HDL Cholesterol 35 Cholesterol/HDL Ratio 4.4 Test 10/14/18 08:06 Bedside Glucose 94 Subjective 24 Hr Interval Summary Free Text/Dictation rafa scan today. Patient having some nausea Exam/Review of Systems Exam Vitals Vital Signs Date Temp Pulse Resp B/P (MAP) Pulse Ox O2 O2 Flow FiO2 Time Delivery Rate 10/14/18 65 08:02 10/14/18 97.6 18 167/91 96 07:20 (116) 10/14/18 Room Air 04:17 Intake and Output 10/13/18 10/13/18 10/14/18 1515:00 23:00 07:00 IntakeIntake Total 400 ml 800 ml 500 ml OutputOutput Total 2500 ml BalanceBalance 400 ml -1700 ml 500 ml Exam Exam right chest Permcath Constitutional: alert, oriented Neck: supple Respiratory: clear to auscultation Cardiovascular: regular rate and rhythm, other (60 all the time) Gastrointestinal: soft Extremities: edema; No normal pulses, No calf tenderness, No cyanosis, No clubbing, No pitting pedal edema, No palpable cord, No tenderness, No other Results Results 24hrs Laboratory Tests Test 10/13/18 17:18 10/13/18 20:38 10/14/18 01:32 10/14/18 05:30 Bedside Glucose 118 222 H 187 White Blood Count 4.9 Red Blood Count 3.93 L Hemoglobin 10.2 L Hematocrit 32.5 L Mean Corpuscular 82.7 Volume Mean Corpuscular 26.0 L Hemoglobin Mean Corpuscular 31.4 L Hemoglobin Concent Red Cell Distribution 16.0 H Width Platelet Count 204 Mean Platelet Volume 9.8 Immature Granulocytes 0.800 H % Neutrophils % 60.7 Lymphocytes % 19.0 Monocytes % 14.4 H Eosinophils % 4.5 Basophils % 0.6 Nucleated Red Blood 0.0 Cells % Immature Granulocytes 0.040 H # Neutrophils # 2.9 Lymphocytes # 0.9 Monocytes # 0.7 Eosinophils # 0.2 Basophils # 0.0 Nucleated Red Blood 0.0 Cells # Sodium Level 134 L Potassium Level 4.7 Chloride Level 99 Carbon Dioxide Level 27 Anion Gap 8 Blood Urea Nitrogen 32 #H Creatinine 6.45 H Est Glomerular 9 L Filtrat Rate mL/min Glucose Level 115 Calcium Level 8.6 Triglycerides Level 52 Cholesterol Level 156 LDL Cholesterol, 111 Calculated HDL Cholesterol 35 Cholesterol/HDL Ratio 4.4 Test 10/14/18 08:06 Bedside Glucose 94 Medications Medication Current Medications Benazepril HCl (Lotensin) 40 mg DAILY PO Last administered on 10/14/18 08:27; Admin Dose 40 MG; Start 10/13/18 at 09:00 Calcium Acetate (Phoslo) 1,334 mg WITH MEALS PO Last administered on 10/13/18 12:29; Admin Dose 1,334 MG; Start 10/13/18 at 08:00 Acetaminophen (Tylenol Tab) 650 mg Q6H PRN PO MILD PAIN(1-3)OR ELEVATED TEMP Last administered on 10/12/18 22:30; Admin Dose 650 MG; Start 10/12/18 at 22:00 Clonidine (Catapres) 0.1 mg TID PO Last administered on 10/14/18 08:27; Admin Dose 0.1 MG; Start 10/12/18 at 22:00 Clonidine (Catapres) 0.1 mg Q6H PRN PO systolic BP > 170 Last administered on 10/14/18 00:31; Admin Dose 0.1 MG; Start 10/12/18 at 22:00 Tramadol HCl (Ultram) 50 mg Q6H PRN PO MODERATE PAIN LEVEL 4-6 Last administered on 10/13/18 00:47; Admin Dose 50 MG; Start 10/12/18 at 22:00 Polyethylene Glycol (Miralax) 17 gm DAILY PO Last administered on 10/14/18 08:26; Admin Dose 17 GM; Start 10/13/18 at 09:00 Bisacodyl (Dulcolax) 5 mg BID PO Last administered on 10/14/18 08:26; Admin Dose 5 MG; Start 10/13/18 at 09:00 Diagnostic Test (Pha) (Accu-Chek) 1 ea 02 XX Last administered on 10/14/18 01:33; Admin Dose 1 EA; Start 10/13/18 at 02:00 Insulin Aspart (Novolog Insulin Pen) NOVOLOG *MILD* ALGORITHM WITH MEALS BEDTIME SC Last administered on 10/13/18 20:44; Admin Dose 2 UNIT; Start 10/13/18 at 08:00 Miscellaneous Information 1 ea NOTE XX ; Start 10/12/18 at 22:00 Glucose (Glutose) 15 gm Q15M PRN PO DECREASED GLUCOSE; Start 10/12/18 at 22:00 Glucose (Glutose) 22.5 gm Q15M PRN PO DECREASED GLUCOSE; Start 10/12/18 at 22:00 Dextrose (D50w Syringe) 25 ml Q15M PRN IV DECREASED GLUCOSE; Start 10/12/18 at 22:00 Dextrose (D50w Syringe) 50 ml Q15M PRN IV DECREASED GLUCOSE; Start 10/12/18 at 22:00 Glucagon (Glucagen) 1 mg Q15M PRN IM DECREASED GLUCOSE; Start 10/12/18 at 22:00 Glucose (Glutose) 15 gm Q15M PRN BUCCAL DECREASED GLUCOSE; Start 10/12/18 at 22:00 Ergocalciferol (Drisdol) 50,000 unit [place]@09 PO Last administered on 10/13/18at 08:58; Admin Dose 50,000 UNIT; Start 10/13/18 at 09:00 Acetaminophen/ Hydrocodone Bitart ([place] (5/325)) 1 tab Q6H PRN PO MODERATE P AIN LEVEL 4-6 Last administered on 10/14/18at 00:31; Admin Dose 1 TAB; Start 10/13/18 at 02:30 Alprazolam (Xanax) 0.25 mg DAILY PRN PO ANXIETY Last administered on 10/14/18at 00:31; Admin Dose 0.25 MG; Start 10/13/18 at 02:30 Heparin Sodium (Porcine) (Heparin (5000 Units/1ml)) 5,000 unit BID SC Last administered on 10/14/18at 08:34; Admin Dose 5,000 UNIT; Start 10/13/18 at 11:30 Lactulose (Enulose) 20 gm Q8 PRN PO CONSTIPATION; Start 10/13/18 at 12:00 Pantoprazole (Protonix Tab) 40 mg DAILY@06 PO Last administered on 10/14/18at 05:34; Admin Dose 40 MG; Start 10/14/18 at 06:00 Hydralazine HCl (Apresoline) 10 mg Q4H PRN IV SBP>180; Start 10/13/18 at 14:00 Heparin Sodium (Porcine) (Heparin (1000 Units/ml)) 4,000 unit AFTER DIALYSIS CATHETER Last administered on 10/13/18at 16:53; Admin Dose 3,300 UNIT; Start 10/13/18 at 14:30 Hydralazine HCl (Apresoline) 100 mg Q8 PO ; Start 10/14/18 at 14:00 Ondansetron HCl (Zofran Inj) 4 mg Q4H PRN IV NAUSEA AND/OR VOMITING; Start 10/14/18 at 12:00 KOBE YANES MD Oct 14, 2018 12:05
[2018-10-14] MEDS ORDERED: HEPARIN 1000 UNITS/ML 10 ML INJ CATHETER SCH (12:30)
--- NOTE | 2018-10-14 15:46 | CARRPT ---
DATE OF PROCEDURE: 10/14/2018 REASON FOR STRESS TESTING: Chest pain, decreased EF by echo, assess for ischemia. BASELINE VITAL SIGNS AND ELECTROCARDIOGRAM: Pulse 87, blood pressure 166/77. Electrocardiogram reve als a sinus bradycardia, rate of 57, normal axis, borderline inferior Q's inferior and anterola teral T-wave inversion. PROCEDURE: The patient underwent standard Lexiscan infusion protocol for over 10 seconds followed by radiotracer. The patient's test was stopped due to completion of protocol. Maximal achieved blood pressure during test 140/63. Maximum heart rate during the test 78. ELECTROCARDIOGRAM FINDINGS: The patient did not develop any new Lexiscan-induced ST or T-wave change s from baseline abnormalities. No documented PVCs. SYMPTOMS: The patient had chest pain and shortness of breath during stress testing which resolved in recovery. IMPRESSION: 1. No Lexiscan-induced ST or T-wave changes from baseline abnormalities diagnostic for ischemia. 2. Complaints of chest pain, shortness breath during stress test resolved in recovery. 3. No documented premature ventricular contractions during stress testing. 4. Report of nuclear images to follow in separate dictation. Dictated By: STEPHANIE WEBSTER/KAE Conf#: [id number] DID#: [id number] CC: EDGAR PEÑA MD;*End*
[2018-10-15] VITALS: BP 160/85; PULSE 63; PULSE 71; RESP 20
[2018-10-15] MEDS: ACCU-CHEK XX SCH (02:00)
[2018-10-15] MEDS: ALPRAZOLAM 0.25 MG TAB PO PRN (02:57)
[2018-10-15 04:00] VITALS: BP 160/88; PULSE 60; PULSE 64; RESP 20
[2018-10-15] MEDS: PANTOPRAZOLE (EC) 40 MG TAB PO SCH (06:23)
[2018-10-15 07:21] VITALS: BP 156/85; PULSE 65; RESP 18
[2018-10-15] MEDS: INSULIN ASPART [NOVOLOG] 3 ML PEN SC SCH ×2 (07:50→11:42)
[2018-10-15] MEDS: CALCIUM ACETATE 667 MG CAP PO SCH ×2 (07:52→11:37)
[2018-10-15 08:08] VITALS: PULSE 60
[2018-10-15] MEDS: BISACODYL (EC) 5 MG TAB PO SCH (08:30)
[2018-10-15] MEDS: POLYETHYLENE GLYCOL 17 GM PACKET PO SCH (08:30)
[2018-10-15] MEDS: HEPARIN 5,000 UNIT/1 ML VIAL SC SCH (08:32)
[2018-10-15] MEDS: BENAZEPRIL 40 MG TAB PO SCH (08:36)
--- NOTE | 2018-10-15 09:15 | CONS ---
Consult Date/Type/Reason Admit Date/Time Oct 14, 2018 at 09:09 Initial Consult Date Requesting Provider: EDGAR PEÑA MD Date/Time of Note DATE: 10/15/18 TIME: 09:14 Subjective NO acute events - no CP now - HD to follow - small non-rev defect on SPECT - no intervention needed. ROS: No fever, no chills, no nausea, no vomiting, no diarrhea/constipation No recent weight changes No chest pain, no PND, no orthopnea - mild SOB No dizziness, blurred vision No thirst, no heat or cold intolerance Objective Vitals Vital Signs Date Temp Pulse Resp B/P (MAP) Pulse Ox O2 O2 Flow FiO2 Time Delivery Rate 10/15/18 60 08:08 10/15/18 97.9 18 156/85 99 Room Air 07:21 (108) Intake and Output 10/14/18 10/14/18 10/15/18 1515:00 23:00 07:00 IntakeIntake Total 550 ml OutputOutput Total 1500 ml BalanceBalance -950 ml Exam General: WN/WD/NAD, AOx 3 HEENT: Unicetric/atraumatic/EOMI (follow commands) NECK: JVD elevated, no thyromegaly Lymph: no lymphadenopathy HEART: regular with no S3, II/ systolic murmur at apex - R chest HD access LUNGS: Coarse sounds ABD: soft, NT, ND, +BS : Intact Neuro: non focal SKIN: chronic changes EXT: trace edema Results/Medications Result Diagram: 10/14/18 0530 10/15/18 0511 Results 24 hrs Laboratory Tests Test 10/14/18 12:16 10/14/18 17:15 10/14/18 21:37 10/15/18 02:44 Bedside Glucose 116 103 172 132 Test 10/15/18 05:11 10/15/18 07:50 Sodium Level 137 Potassium Level 4.8 Chloride Level 103 Carbon Dioxide Level 26 Anion Gap 8 Blood Urea Nitrogen 23 H Creatinine 5.62 H Est Glomerular 11 L Filtrat Rate mL/min Glucose Level 139 Calcium Level 8.7 Bedside Glucose 136 Home Meds Reported Medications Ergocalciferol (Vitamin D2) (VITAMIN D2) 50,000 Unit Capsule, 70486 UNIT PO q Sunday, CAP 10/12/18 Pantoprazole* (Protonix*) 40 Mg Tablet.dr, 40 MG PO DAILY, TAB 6/8/19 Calcium Acetate* (Calcium Acetate*) 667 Mg Capsule, 1334 MG PO WITH MEALS, #60 CAP 10/12/18 Hydralazine Hcl* (Hydralazine Hcl*) 25 Mg Tab, 25 MG PO TID, #120 TAB 10/12/18 Benazepril Hcl* (Benazepril Hcl*) 40 Mg Tablet, 40 MG PO DAILY, #30 TAB 10/12/18 Discontinued Reported Medications Calcium Acetate* (Calcium Acetate*) 667 Mg Capsule, 1334 MG PO WITH MEALS, #60 CAP 09/24/18 Discontinued Scripts Ergocalciferol (Vitamin D2) (VITAMIN D2) 50,000 Unit Capsule, 07125 UNIT PO Sa@09 for 90 Days, CAP Prov:DANDY MORRIS 09/28/18 Pantoprazole* (Pantoprazole*) 40 Mg Tablet.dr, 40 MG PO BID@0600,1800 for 28 Day s Prov:DANDY MORRIS 09/28/18 Calcium Carbonate (CALCIUM CARBONATE) 200 Mg Tab.chew, 500 MG PO BID for 30 Days, TAB.CHEW Prov:DANDY MORRIS 09/28/18 Hydralazine Hcl* (Hydralazine Hcl*) 25 Mg Tab, 25 MG PO TID for 30 Days, TAB Prov:DANDY MORRIS 09/28/18 Benazepril Hcl* (Benazepril Hcl*) 20 Mg Tablet, 40 MG PO DAILY for 30 Days, TAB Prov:DANDY MORRIS 09/28/18 Amlodipine Besylate* (Amlodipine Besylate*) 5 Mg Tablet, 5 MG PO BID for 30 Days, TAB Prov:DANDY MORRIS 09/28/18 Ciprofloxacin Hcl* (Ciprofloxacin Hcl*) 500 Mg Tablet, 500 MG PO Q24H for 10 Days, TAB Prov:DANDY MORRIS 09/28/18 Erythromycin* (Erythromycin* EC) 250 Mg Capsule.dr, 250 MG PO Q8 for 10 Days Prov:DANDY MORRIS 09/28/18 Ondansetron (Ondansetron Odt) 4 Mg Tab.rapdis, 4 MG PO Q6H PRN for NAUSEA AND/OR VOMITING, #10 TAB Prov:DANDY MORRIS 09/28/18 Medications Current Medications Benazepril HCl (Lotensin) 40 mg DAILY PO Last administered on 10/15/18 08:36; Admin Dose 40 MG; Start 10/13/18 at 09:00 Calcium Acetate (Phoslo) 1,334 mg WITH MEALS PO Last administered on 10/15/18 07:52; Admin Dose 1,334 MG; Start 10/13/18 at 08:00 Acetaminophen (Tylenol Tab) 650 mg Q6H PRN PO MILD PAIN(1-3)OR ELEVATED TEMP Last administered on 10/12/18 22:30; Admin Dose 650 MG; Start 10/12/18 at 22:00 Clonidine (Catapres) 0.1 mg TID PO Last administered on 10/15/18 08:30; Admin Dose 0.1 MG; Start 10/12/18 at 22:00 Clonidine (Catapres) 0.1 mg Q6H PRN PO systolic BP > 170 Last administered on 10/14/18 00:31; Admin Dose 0.1 MG; Start 10/12/18 at 22:00 Tramadol HCl (Ultram) 50 mg Q6H PRN PO MODERATE PAIN LEVEL 4-6 Last administered on 10/13/18 00:47; Admin Dose 50 MG; Start 10/12/18 at 22:00 Polyethylene Glycol (Miralax) 17 gm DAILY PO Last administered on 10/15/18 08:30; Admin Dose 17 GM; Start 10/13/18 at 09:00 Bisacodyl (Dulcolax) 5 mg BID PO Last administered on 10/15/18 08:30; Admin Dose 5 MG; Start 10/13/18 at 09:00 Diagnostic Test (Pha) (Accu-Chek) 1 ea 02 XX Last administered on 10/14/18 01: 33; Admin Dose 1 EA; Start 10/13/18 at 02:00 Insulin Aspart (Novolog Insulin Pen) NOVOLOG *MILD* ALGORITHM WITH MEALS BEDTIME SC Last administered on 10/13/18 20:44; Admin Dose 2 UNIT; Start 10/13/18 at 08:00 Miscellaneous Information 1 ea NOTE XX ; Start 10/12/18 at 22:00 Glucose (Glutose) 15 gm Q15M PRN PO DECREASED GLUCOSE; Start 10/12/18 at 22:00 Glucose (Glutose) 22.5 gm Q15M PRN PO DECREASED GLUCOSE; Start 10/12/18 at 22:00 Dextrose (D50w Syringe) 25 ml Q15M PRN IV DECREASED GLUCOSE; Start 10/12/18 at 22:00 Dextrose (D50w Syringe) 50 ml Q15M PRN IV DECREASED GLUCOSE; Start 10/12/18 at 22:00 Glucagon (Glucagen) 1 mg Q15M PRN IM DECREASED GLUCOSE; Start 10/12/18 at 22:00 Glucose (Glutose) 15 gm Q15M PRN BUCCAL DECREASED GLUCOSE; Start 10/12/18 at 22:00 Ergocalciferol (Drisdol) 50,000 unit [place]@09 PO Last administered on 10/13/18at 08:58; Admin Dose 50,000 UNIT; Start 10/13/18 at 09:00 Acetaminophen/ Hydrocodone Bitart (Kamas (5/325)) 1 tab Q6H PRN PO MODERATE PAIN LEVEL 4-6 Last administered on 10/14/18at 00:31; Admin Dose 1 TAB; Start 10/13/18 at 02:30 Alprazolam (Xanax) 0.25 mg DAILY PRN PO ANXIETY Last administered on 10/15/18at 02:57; Admin Dose 0.25 MG; Start 10/13/18 at 02:30 Heparin Sodium (Porcine) (Heparin (5000 Units/1ml)) 5,000 unit BID SC Last administered on 10/15/18at 08:32; Admin Dose 5,000 UNIT; Start 10/13/18 at 11:30 Lactulose (Enulose) 20 gm Q8 PRN PO CONSTIPATION; Start 10/13/18 at 12:00 Pantoprazole (Protonix Tab) 40 mg DAILY@06 PO Last administered on 10/15/18at 06:23; Admin Dose 40 MG; Start 10/14/18 at 06:00 Hydralazine HCl (Apresoline) 10 mg Q4H PRN IV SBP>180; Start 10/13/18 at 14:00 Hydralazine HCl (Apresoline) 100 mg Q8 PO Last administered on 10/15/18at 06:24; Admin Dose 100 MG; Start 10/14/18 at 14:00 Ondansetron HCl (Zofran Inj) 4 mg Q4H PRN IV NAUSEA AND/OR VOMITING Last administered on 10/14/18at 12:14; Admin Dose 4 MG; Start 10/14/18 at 12:00 Heparin Sodium (Porcine) (Heparin (1000 Units/ml)) 4,000 unit AFTER DIALYSIS CATHETER Last administered on 10/14/18at 17:15; Admin Dose 4,000 UNIT; Start 10/14/18 at 12:30 Assessment/Plan Hospital Course (Demo Recall) 1. Chest pain, assess for acute coronary syndrome, somewhat poorly described at this time, possibly in the setting of hypertensive urgency and emergency, rule out acute coronary syndrome.-neg trop x 3. Mildly depresssed LVEF by echo this admit - SPECT - no rev disease, EF 51% - med Rx for now. 2. Abnormal electrocardiogram with diffuse nonspecific ST-T wave abnormalities to assess acute coronary syndrome.R/O ND. 3. Hypertension, labile, slowly improving on oral antihypertensives.Adjust Rx with renal team. 4. History of dyslipidemia. 5. End-stage renal disease on hemodialysis- HD as needed. 6. Hyponatremia. 7. Constipation 8. Anemia, mild worsening with increased BNP consistent with congestive heart failure. no active bleeding noted. 9. Headaches. Rule out cerebrovascular accident. 10. cardiomyopathy TONY SANTOS MD Oct 15, 2018 09:15
[2018-10-15 11:31] VITALS: BP 140/70; PULSE 68; RESP 19
[2018-10-15] MEDS: ACETAMINOPHEN 325 MG TAB PO PRN (11:36)
[2018-10-15 12:12] VITALS: PULSE 68
--- NOTE | 2018-10-15 13:37 | PDOCDIS ---
Discharge Instructions DIAGNOSIS Discharge Diagnosis Uncontrolled hypertension cP and status post stress test ESRD CONDITION [id number] Patient Condition: [id number] Fair HOME CARE INSTRUCTIONS: [id number] Diet Instructions: [id number] Low Fat /Cholesterol [id number] Special Diet: Ohfss7k RENAL ACTIVITY: [id number] Activity Restrictions: [id number] Slowly Increase Activity Rest between Activity No Sexual Activity FOLLOW UP/APPOINTMENTS Follow-up Plan Follow-up with PCP in 1 to [address] Elias in 2 to 3 weeks FU With hemodialysis Sunday Return to ER if has chest pain shortness of breath KOBE YANES MD Oct 15, 2018 13:37
[2018-10-15] MEDS ORDERED: CLON0.1T14 PO (13:38)
[2018-10-15] MEDS ORDERED: HYDR-3672 PO (13:38)
--- NOTE | 2018-10-15 16:55 | RADRPT ---
Vent Rate: 61 bpm RR Interval: 984 msec IN Interval: 169 msec QRS Duration: 109 msec QT Interval: 428 msec QTC Interval: 431 msec P-R-T [place]: 47 - 24 - 155 degrees Sinus rhythm...normal P axis, V-rate 50- 99 Abnormal T, consider ischemia, lateral leads...T <-0.20mV, I aVL V5 V6 Electronically Signed By: Gabriel Hogue
--- NOTE | 2018-10-15 18:54 | DS ---
DATE OF ADMISSION: 10/14/2018 DATE OF DISCHARGE: 10/15/2018 HISTORY OF PRESENTING ILLNESS AND HOSPITAL COURSE: This is a 53-year-old male with a past medical hi story of end-stage renal disease on hemodialysis since 03/2018, received dialysis Sunday, Sunday, Sunday he said during ____ sometimes. He was recently in the hospital with colitis, now improved. H e states that after leaving his dialysis session he developed severe headache. His systolic blood pr essure was significantly elevated greater than 200. He took double dose of antihypertensive medicine s without effect and came to the emergency department for further evaluation. He also had chest pain like pressure. On admission, white count was 5.5, hemoglobin 10.4, platelet count 202, sodium 131, BUN of 44, creatinine 8.09. Blood pressure initially was 162/85, went up to systolic of 180s. The p atient was seen by cardiology consultation with Dr. Elias and his recommendations were followed the patient. The patient was also continued on hemodialysis during the hospitalization. Echo was done that showed EF of 40% to 45%. The patient had abnormal diastolic function. The patient also had CT of the brain which showed no evidence of acute intracranial pathology. Chest x-ray was cardiomegaly, no pneumonia or failure. The patient was started on clonidine 0.1 t.i.d. and also hydralazine dose was increased to 100 q.8. Blood pressure is much improved. The patient also had a nuclear stress te st done that showed ____ of abnormalities most concerning is small sized nonreversible perfusion defe ct in the inferior wall, mild hypokinesis of the inferior wall and no wall motion abnormalities. The patient was seen by Dr. Leonard, Dr. Elias and was stable to be discharged home. No intervention n eeded according to them. Blood pressure is much improved systolic 140s and currently stable to be di scharged home. FINAL DISCHARGE DIAGNOSES: 1. Chest pain, assess for acute coronary syndrome, mildly depressed EF by echo, small nonreversible on SPECT. No intervention needed. 2. Hypertension, uncontrolled, labile, improved on oral hypertensive. 3. Abnormal EKG with diffuse nonspecific ST-T wave changes. 4. History of dyslipidemia. 5. End-stage renal disease on hemodialysis. 6. Hyponatremia. 7. Constipation. 8. Anemia. 9. Headaches. Negative for cerebrovascular accident, improved. 10. Cardiomyopathy. DISCHARGE CONDITION: Stable. DISCHARGE MEDICATIONS: 1. Benazepril 40. 2. Clonidine 0.1 t.i.d. 3. Hydralazine 100 q.8. 4. Calcium acetate. 5. Ergocalciferol. 6. Pantoprazole 40. DISCHARGE INSTRUCTIONS: The patient was instructed to follow up with PCP in 1 to 2 weeks, cardiology in 2 to 3 weeks and also hemodialysis Sunday, Sunday, Sunday. The patient was instructed to retu rn to the ER if he has severe chest pains, headaches and shortness of breath. Dictated By: KOBE DE GUZMAN/KAE Conf#: [id number] DID#: [id number] CC: EDGAR PEÑA MD; STEPHANIE ELIAS MD;*End*
== END 2018-10-15 15:20 | disposition home or self-care (01) | DRG 304 ==
LOC: E/R 15:44 → 6WM 16:48 → OBSVTOIN 10-14 09:09
PROVIDERS: ADMIT Internal Medicine Nephrology; ATTEND Internal Medicine Nephrology
PROC: 5A1D70Z Performance of Urinary Filtration, Intermittent, Less than 6 Hours Per Day (ICD-10-PCS; principal; 2018-10-13)
DX: I16.1 Hypertensive emergency (principal); N18.6 End stage renal disease; E87.1 Hypo-osmolality and hyponatremia; I42.9 Cardiomyopathy, unspecified; I50.30 Unspecified diastolic (congestive) heart failure; R07.9 Chest pain, unspecified; R51 Headache; Z99.2 Dependence on renal dialysis; E78.5 Hyperlipidemia, unspecified; K59.00 Constipation, unspecified; D64.9 Anemia, unspecified; R00.1 Bradycardia, unspecified; R73.03 Prediabetes; E66.3 Overweight; Z68.27 Body mass index [BMI] 27.0-27.9, adult; I13.2 Hypertensive heart and chronic kidney disease with heart failure and with stage 5 chronic kidney disease, or end stage renal disease
CPT/HCPCS: 36415; 70450; 71045; 78452; 80048; 80053; 80061; 82550; 82553; 82962; 83880; 84484; 85025; 85610; 85730; 87081; 90935; 93005; 93017; 93306; 99217; A9500; A9505; G0378; J1644; J1815; J2405; J2785

== ENCOUNTER 2018-10-19 03:19 | Emergency (ER) | payer OTHER ==
[~2018-10-19] VITALS: Ht 167.6 cm; Wt 74.2 kg
[~2018-10-19 03:19] MED LIST changes: +BENA40TA56 PO; +CLON0.1T14 PO; +HYDR-3672 PO; +PANT40TA3 PO
[2018-10-19 03:34] VITALS: Ht 167.6 cm; Wt 74.2 kg
--- NOTE | 2018-10-19 03:57 | ERD ---
ER Documentation Chief Complaint Chief Complaint c/o headache/chest pain x 1 day, last dialysis yesterday HPI The patient is a 53-year-old male, presenting to the ER because of vague headache and vague chest pain for 1 day. He was seen, admitted and discharged from the hospital chart 4 days ago for similar symptoms. He had a negative brain CT, unremarkable SPECT scan, seen by cell inspector who recommended discharging the patient. According to the , he is under a lot of stress. He denies chest pain with vomiting/radiation/exertion/diaphoresis, denies fever, chills, neck pain, abdominal pain, vomiting, dizzy, diarrhea. He does not smoke nor drink He complains one of the medications that he was recently prescribed that make him very anxious and he stopped taking them 2 days ago but he did not know the name of the medication Past medical history: Chronic kidney disease, hemodialysis on Sunday, , Sunday, hypertension Past surgical history: Right great toe amputation, right chest hemodialysis ROS All systems reviewed and are negative except as per history of present illness. Medications Home Meds Active Scripts Hydralazine Hcl* (Apresoline*) 50 Mg Tab, 100 MG PO Q8 for 30 Days, TAB Prov:KOBE YANES MD 10/15/18 Clonidine Hcl* (Catapres*) 0.1 Mg Tablet, 0.1 MG PO TID for 30 Days, TAB Prov:KOBE YANES MD 10/15/18 Reported Medications Ergocalciferol (Vitamin D2) (VITAMIN D2) 50,000 Unit Capsule, 23968 UNIT PO q Sunday, CAP 10/12/18 Pantoprazole* (Protonix*) 40 Mg Tablet.dr, 40 MG PO DAILY, TAB 10/12/18 Calcium Acetate* (Calcium Acetate*) 667 Mg Capsule, 1334 MG PO WITH MEALS, #60 CAP 10/12/18 Benazepril Hcl* (Benazepril Hcl*) 40 Mg Tablet, 40 MG PO DAILY, #30 TAB 10/12/18 Discontinued Reported Medications Hydralazine Hcl* (Hydralazine Hcl*) 25 Mg Tab, 25 MG PO TID, #120 TAB 10/12/18 Calcium Acetate* (Calcium Acetate*) 667 Mg Capsule, 1334 MG PO WITH MEALS, #60 CAP 09/24/18 Discontinued Scripts Ergocalciferol (Vitamin D2) (VITAMIN D2) 50,000 Unit Capsule, 08194 UNIT PO Sa@09 for 90 Days, CAP Prov:DANDY MORRIS 09/28/18 Pantoprazole* (Pantoprazole*) 40 Mg Tablet.dr, 40 MG PO BID@0600,1800 for 28 Days Prov:DANDY MORRIS 09/28/18 Calcium Carbonate (CALCIUM CARBONATE) 200 Mg Tab.chew, 500 MG PO BID for 30 Day s, TAB.CHEW Prov:DANDY MORRIS 09/28/18 Hydralazine Hcl* (Hydralazine Hcl*) 25 Mg Tab, 25 MG PO TID for 30 Days, TAB Prov:DANDY MORRIS 09/28/18 Benazepril Hcl* (Benazepril Hcl*) 20 Mg Tablet, 40 MG PO DAILY for 30 Days, TAB Prov:DANDY MORRIS 09/28/18 Amlodipine Besylate* (Amlodipine Besylate*) 5 Mg Tablet, 5 MG PO BID for 30 Days, TAB Prov:DANDY MORRIS 09/28/18 Ciprofloxacin Hcl* (Ciprofloxacin Hcl*) 500 Mg Tablet, 500 MG PO Q24H for 10 Days, TAB Prov:DANDY MORRIS 09/28/18 Erythromycin* (Erythromycin* EC) 250 Mg Capsule.dr, 250 MG PO Q8 for 10 Days Prov:DANDY MORRIS 09/28/18 Ondansetron (Ondansetron Odt) 4 Mg Tab.rapdis, 4 MG PO Q6H PRN for NAUSEA AND/OR VOMITING, #10 TAB Prov:DANDY MORRIS 09/28/18 Allergies Allergies: Coded Allergies: No Known Drug Allergies (Verified Allergy, Unknown, 10/12/18) PMhx/Soc History of Surgery: Yes (right big toe amputation) Anesthesia Reaction: No Hx Neurological Disorder: No Hx Respiratory Disorders: No Hx Cardiac Disorders: Yes (HTN) Hx Psychiatric Problems: Yes Hx Miscellaneous Medical Probl: Yes (ACUTE RENAL FAILURE ) Hx Alcohol Use: No Hx Substance Use: No Hx Tobacco Use: No Smoking Status: Never smoker Physical Exam Vitals Vital Signs Date Temp Pulse Resp B/P (MAP) Pulse Ox O2 O2 Flow FiO2 Time Delivery Rate 10/19/18 Nasal 04:20 Cannula 10/19/18 97.8 79 20 154/83 98 Room Air 03:52 (106) 10/19/18 97.8 76 20 175/85 98 03:34 (115) Physical Exam Const: No acute distress. Head: Atraumatic. Eyes: Normal Conjunctiva. ENT: Normal External Ears, Nose and Mouth. Neck: Full range of motion. No meningismus. Resp: Clear to auscultation bilaterally. Cardio: Regular rate and rhythm. Abd: Soft, non distended, normal bowel sounds, non tender. Skin: No petechiae or rashes. Back: No midline or flank tenderness. Ext: No cyanosis, or edema. Neur: Awake and alert. No focal deficit Psych: Anxious Result Diagram: 10/19/1840110/19/18 0402 Results 24 hrs Laboratory Tests Test 10/19/18 04:02 White Blood Count 5.6 10^3/ul Red Blood Count 4.11 10^6/ul Hemoglobin 10.9 g/dl Hematocrit 34.1 % Mean Corpuscular Volume 83.0 fl Mean Corpuscular Hemoglobin 26.5 pg Mean Corpuscular Hemoglobin Concent 32.0 g/dl Red Cell Distribution Width 15.4 % Platelet Count 221 10^3/UL Mean Platelet Volume 9.5 fl Immature Granulocytes % 0.400 % Neutrophils % 61.1 % Lymphocytes % 21.8 % Monocytes % 12.4 % Eosinophils % 3.4 % Basophils % 0.9 % Nucleated Red Blood Cells % 0.0 /100WBC Immature Granulocytes # 0.020 10^3/ul Neutrophils # 3.4 10^3/ul Lymphocytes # 1.2 10^3/ul Monocytes # 0.7 10^3/ul Eosinophils # 0.2 10^3/ul Basophils # 0.1 10^3/ul Nucleated Red Blood Cells # 0.0 10^3/ul Sodium Level 133 mmol/L Potassium Level 3.8 mmol/L Chloride Level 96 mmol/L Carbon Dioxide Level 26 mmol/L Anion Gap 11 Blood Urea Nitrogen 26 mg/dl Creatinine 6.26 mg/dl Est Glomerular Filtrat Rate mL/min 9 mL/min Glucose Level 114 mg/dl Calcium Level 9.0 mg/dl Troponin I 0.019 ng/ml Current Medications Medications Dose Sig/Mikey Start Time Status Last (Trade) Ordered Route PRN Stop Time Admin Dose Reason Admin 650 mg ONCE ONCE 10/19/18 DC 10/19/18 Acetaminophen PO 05:00 05:10 (Tylenol 10/19/18 05:01 Tab) Procedures/MDM [place] [address] Radiology Main Line: [phone] DIAGNOSTIC IMAGING REPORT Patient: YONY HERNANDEZ : 1965 Age: 53 Sex: M MR #: [id number] DOS: 10/19/18 0406 Ordering MD: ANA HOPE MD Location: E/R Room/Bed: PROCEDURE: Single view chest. CLINICAL INDICATION: Chest pain TECHNIQUE: Single view of the chest was obtained COMPARISON: 10/12/2018 FINDINGS: Right dual-lumen catheter extends to the lower SVC. Monitoring leads overlie the chest. Cardiac silhouette is mildly enlarged. There is mild bronchial wall cuffing without confluent air space consolidation, focal infiltrate or effusion. Regional bones are unremarkable. IMPRESSION: Mildly enlarged cardiac silhouette. Bronchial wall cuffing compatible with trace edema versus mild airways inflammation. RPTAT: [facility] Physician Lily Date Time Electronically viewed and signed by Physician Lily on 10/19/2018 04:57 xB/ CC: ANA HOPE MD [phone] EKG: Read by emergency physician Rate/Rhythm: Normal Sinus Rhythm 83 beats/min QRS, ST, T-waves: No ST elevation, no T inversion Impression: Normal EKG MEDICAL MAKING DECISION: The patient is a 53-year-old male, presenting to the ER with acute chest pain for a day with negative troponin and recent cardiac negative work-up, I do not suspect acute ACS. He was treated with Tylenol 750 mg p.o. for headache with good response The differential diagnoses considered include but are not limited to acute coronary syndrome, acute myocardial infarction, pericarditis, pulmonary embolism, aortic dissection, pneumonia, pleural effusion, pneumothorax, GERD, chest wall pain. Departure Diagnosis: Primary Impression: Chest pain Additional Impression: Anemia Condition: Good Comments I discussed the findings with the patient. I advised the patient to follow-up with the primary physician in about 1-2 days, sooner if needed and return if any concern. Disclaimer: Inadvertent spelling and grammatical errors are likely due to EHR/dictation software use and do not reflect on the overall quality of patient care. Also, please note that the electronic time recorded on this note does not necessarily reflect the actual time of the patient encounter. ANA HOPE MD Oct 19, 2018 03:57
[2018-10-19] MEDS ORDERED: ACETAMINOPHEN 325 MG TAB PO ONE (05:00)
[2018-10-19] MEDS ORDERED: ACET325T33 PO (05:28)
[2018-10-19 05:30] VITALS: BP 157/82; PULSE 81; RESP 16
== END 2018-10-19 05:49 | disposition home or self-care (01) ==
LOC: E/R 03:19
DX: R07.9 Chest pain, unspecified (principal); D64.9 Anemia, unspecified; I10 Essential (primary) hypertension
CPT/HCPCS: 71045; 80048; 84484; 85025; 93005; Z7610; 36415

== ENCOUNTER 2019-03-10 13:04 | Emergency (ER) | payer MEDICARE, OTHER ==
[~2019-03-10] VITALS: Wt 70.3 kg
[~2019-03-10 13:04] MED LIST changes: +ACET325T33 PO; -AMLO-145 PO; -BENA20TA4 PO; -CALC200T26 PO; -CIPR500T4 PO; -ERYT250C52 PO; -HYDR-3671 PO; +MECL12.574 PO; -ONDA4TAB14 PO; -PANT40TA4 PO
[2019-03-10 13:08] VITALS: Wt 70.3 kg
[2019-03-10] MEDS ORDERED: ONDANSETRON 4 MG INJ IV STA (13:43)
[2019-03-10] MEDS ORDERED: morphine 4 MG/ML VIAL IV STA (13:43)
[2019-03-10 14:24] VITALS: BP 176/89; PULSE 61; RESP 16
== END 2019-03-10 14:50 | disposition home or self-care (01) ==
LOC: E/R 13:04
DX: R42 Dizziness and giddiness (principal); R51 Headache; I10 Essential (primary) hypertension; E11.9 Type 2 diabetes mellitus without complications; R11.0 Nausea; Z99.2 Dependence on renal dialysis
CPT/HCPCS: 36415; 70450; 71045; 80048; 80061; 82962; 83036; 84484; 85025; 85610; 85730; 93005; 96374; 96375; 99285; J2270; J2405